=== PATIENT | female | born 1980 | race American Indian/Alaskan Native ===

== ENCOUNTER 2019-01-15 10:09 | Inpatient (IN) | payer OTHER ==
[2019-01-15] MEDS ORDERED: SODIUM CHLORIDE 0.9% 1000 ML 1,000 ML IV ONE ×2 (10:40→15:23)
[2019-01-15] MEDS ORDERED: FAMOTIDINE 20 MG/2 ML INJ IV ONE (10:40)
[2019-01-15] MEDS ORDERED: ONDANSETRON 4 MG/2 ML INJ IV ONE ×2 (10:40→15:22)
[2019-01-15] MEDS ORDERED: HYDROmorphone 1 MG/1 ML INJ IV ONE ×2 (11:31→15:15)
[2019-01-15] MEDS ORDERED: INSULIN REGULAR, HUMAN 100 UNITS/1 ML IV ONE ×2 (11:32→15:21)
[2019-01-15 11:46] LABS: Basophils % (Auto) 0.4 % (0.0-1.8); Hematocrit 31.8 % (30.3-42.9); Hemoglobin 10.1 gm/dl (10.1-14.3); Lymphocytes # (Auto) 0.7 K/mm3 (1.2-5.4); Lymphocytes % (Auto) 7.1 % (13.4-35.0); Mean Corpuscular HGB Conc 32 % (30-34); Mean Corpuscular Volume 71 fl (79-97); Monocytes # (Auto) 0.2 K/mm3 (0.0-0.8); Monocytes % (Auto) 2.6 % (0.0-7.3); Platelet Count 299 K/mm3 (140-440); Red Blood Count 4.48 M/mm3 (3.65-5.03); Red Cell Distribution Width 19.8 % (13.2-15.2)
[2019-01-15 11:52] LABS: Albumin 4.3 g/dL (3.9-5); Calcium 8.9 mg/dL (8.4-10.2)
--- NOTE | 2019-01-15 12:00 | Emergency Department Report ---
<DIEGO CARROLL III - Last Filed: 01/15/19 16:41> ED Abdominal Pain HPI - General Chief Complaint: GI Bleed Stated Complaint: HYPERGLYCEMIA/N/V Time Seen by Provider: 01/15/19 10:38 - Related Data Previous Rx's Medication Instructions Recorded Last Taken Type Acetaminophen [Tylenol] 650 mg PO Q6HR PRN #30 tablet 02/02/13 01/14/19 Rx Carvedilol [Coreg] 25 mg PO Q12HR #60 tablet 02/02/13 01/14/19 Rx Promethazine HCl [Promethazine] 25 mg PO Q6H PRN #20 tablet 02/02/13 01/14/19 Rx amLODIPine [Norvasc] 5 mg PO QDAY #30 tablet 02/02/13 01/14/19 Rx Allergies Allergy/AdvReac Type Severity Reaction Status Date / Time acetaminophen [From Percocet] Allergy Vomiting Verified 01/15/19 17:09 haloperidol [From Haldol] Allergy Nausea Verified 01/15/19 17:09 oxycodone HCl [From Percocet] Allergy Vomiting Verified 01/15/19 17:09 ED Past Medical Hx - Medications Home Medications: Home Medications Medication Instructions Recorded Confirmed Last Taken Type Acetaminophen [Tylenol] 650 mg PO Q6HR PRN #30 tablet 02/02/13 01/15/19 01/14/19 Rx Carvedilol [Coreg] 25 mg PO Q12HR #60 tablet 02/02/13 01/15/19 01/14/19 Rx Promethazine HCl [Promethazine] 25 mg PO Q6H PRN #20 tablet 02/02/13 01/15/19 01/14/19 Rx amLODIPine [Norvasc] 5 mg PO QDAY #30 tablet 02/02/13 01/15/19 01/14/19 Rx ED Course - Consultations Consultation #1: Hospitalist consultation for admission. Hospitalist to admit patient. 01/15/19 16:42 ED Medical Decision Making - Lab Data Result diagrams: 01/15/19 11:21 01/15/19 11:21 ED Disposition Clinical Impression: Nausea and vomiting Qualifiers: Vomiting type: unspecified Vomiting Intractability: intractable Qualified Code(s): R11.2 - Nausea with vomiting, unspecified UTI (urinary tract infection) Qualifiers: Encounter type: initial encounter Abdominal pain Qualifiers: Abdominal location: unspecified location Qualified Code(s): R10.9 - Unspecified abdominal pain Disposition: DC-09 OP ADMIT IP TO THIS HOSP Is pt being admited?: Yes Does the pt Need Aspirin: No Condition: Critical Time of Disposition: 16:42 <AMYANDREY Emilie - Last Filed: 01/16/19 22:59> ED Abdominal Pain HPI - General Source: EMS, old records reviewed Mode of arrival: Stretcher Limitations: No Limitations - History of Present Illness Initial Comments: 38 year old female the past medical history or insulin dependent diabetes and previous cholecystectomy presents to the hospital with complaints of abdominal pain and vomiting (coffee ground emesis) 2 days. Patient complains of mid abdominal pain that is severe in intensity and worse with palpation. She's had nausea, vomiting, and by mouth intolerance is yesterday. Patient last took her BP meds and insulin yesterday. She denies fever, diarrhea, melena, hematochezia, or dysuria. She denies a history of gastroparesis. PMD Dr. 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; cardiomyopathy and CHF) Hx Congestive Heart Failure: Yes Hx Diabetes: Yes (IDDM) Hx Liver Disease: No Hx Renal Disease: No Hx Sickle Cell Disease: No Hx Seizures: No Hx Kidney Stones: Yes Hx Asthma: Yes (as child) Hx COPD: No - Surgical History Hx Pacemaker: No Hx Internal Defibrillator: No Hx Cholecystectomy: Yes - Social History Smoking Status: Never Smoker Substance Use Type: None ED Physical Exam - General Limitations: No Limitations - Other Other exam information: Gen.: No acute distress Head: Atraumatic Eyes: Normal appearance ENT: Moist mucous membranes Neck: Normal appearance, no posterior midline tenderness, no meningismus Chest: Clear to auscultation bilaterally Cardiovascular: Tachycardic regular rhythm Abdomen: Normal appearance, soft, mid abdominal tenderness, no rebound or guarding, normal bowel sounds Back: Normal appearance, nontender Extremity: Full range of motion, normal appearance Neuro: Alert and oriented 3, clear speech, no focal motor or sensory deficit Psychiatric: Appropriate Skin: No rash ED Course Vital Signs 01/15/19 01/15/19 01/15/19 10:21 10:24 11:52 Temperature 98.1 F Pulse Rate 115 H 108 H Respiratory 18 16 Rate Blood Pressure 195/118 207/126 Blood Pressure [Left] O2 Sat by Pulse 97 100 Oximetry 01/15/19 01/15/19 01/15/19 11:57 12:02 12:11 Temperature Pulse Rate 102 H Respiratory Rate Blood Pressure Blood Pressure 207/126 178/111 157/97 [Left] O2 Sat by Pulse 98 Oximetry 01/15/19 01/15/19 01/15/19 12:30 12:47 14:15 Temperature Pulse Rate 102 H 103 H Respiratory Rate Blood Pressure Blood Pressure 163/99 157/95 180/108 [Left] O2 Sat by Pulse Oximetry 01/15/19 01/15/19 01/15/19 16:02 18:00 18:55 Temperature Pulse Rate 105 H 105 H 114 H Respiratory Rate Blood Pressure 175/111 178/111 Blood Pressure 162/91 [Left] O2 Sat by Pulse 97 Oximetry 01/15/19 19:10 Temperature 98.2 F Pulse Rate 116 H Respiratory 16 Rate Blood Pressure Blood Pressure 130/80 [Left] O2 Sat by Pulse 100 Oximetry ED Medical Decision Making - Lab Data Result diagrams: 01/16/19 04:41 01/16/19 04:41 Lab Results 01/15/19 01/15/19 01/15/19 Range/Units 10:37 11:21 11:21 WBC 9.2 (4.5-11.0) K/mm3 RBC 4.48 (3.65-5.03) M/mm3 Hgb 10.1 (10.1-14.3) gm/dl Hct 31.8 (30.3-42.9) % MCV 71 L (79-97) fl MCH 23 L (28-32) pg MCHC 32 (30-34) % RDW 19.8 H (13.2-15.2) % Plt Count 299 (140-440) K/mm3 Lymph % (Auto) 7.1 L (13.4-35.0) % Williamson % (Auto) 2.6 (0.0-7.3) % Eos % (Auto) 0.0 (0.0-4.3) % Baso % (Auto) 0.4 (0.0-1.8) % Lymph # 0.7 L (1.2-5.4) K/mm3 Williamson # 0.2 (0.0-0.8) K/mm3 Eos # 0.0 (0.0-0.4) K/mm3 Baso # 0.0 (0.0-0.1) K/mm3 Seg Neutrophils % 89.9 H (40.0-70.0) % Seg Neutrophils # 8.2 H (1.8-7.7) K/mm3 PT (12.2-14.9) Sec. INR (0.87-1.13) APTT (24.2-36.6) Sec. VBG pH (7.320-7.420) Sodium 138 (137-145) mmol/L Potassium 3.8 (3.6-5.0) mmol/L Chloride 102.2 (98-107) mmol/L Carbon Dioxide 19 L (22-30) mmol/L Anion Gap 21 mmol/L BUN 19 H (7-17) mg/dL Creatinine 1.4 H (0.7-1.2) mg/dL Estimated GFR 51 ml/min BUN/Creatinine Ratio 14 % Glucose 363 H (65-100) mg/dL POC Glucose 339 H (70-105) Calcium 8.9 (8.4-10.2) mg/dL Total Bilirubin 0.40 (0.1-1.2) mg/dL AST 17 (5-40) units/L ALT 11 (7-56) units/L Alkaline Phosphatase 87 (35-129) units/L Total Protein 9.0 H (6.3-8.2) g/dL Albumin 4.3 (3.9-5) g/dL Albumin/Globulin Ratio 0.9 % Lipase 54 (13-60) units/L HCG, Qual (Negative) Urine Color (Yellow) Urine Turbidity (Clear) Urine pH (5.0-7.0) Ur Specific Winton (1.003-1.030) Urine Protein (Negative) mg/dL Urine Glucose (UA) (Negative) mg/dL Urine Ketones (Negative) mg/dL Urine Blood (Negative) Urine Nitrite (Negative) Urine Bilirubin (Negative) Urine Urobilinogen (<2.0) mg/dL Ur Leukocyte Esterase (Negative) Urine WBC (Auto) (0.0-6.0) /HPF Urine RBC (Auto) (0.0-6.0) /HPF U Epithel Cells (Auto) (0-13.0) /HPF Urine Bacteria (Auto) (Negative) /HPF Urine Mucus /HPF Blood Type Antibody Screen 01/15/19 01/15/19 01/15/19 Range/Units 11:21 11:21 11:21 WBC (4.5-11.0) K/mm3 RBC (3.65-5.03) M/mm3 Hgb (10.1-14.3) gm/dl Hct (30.3-42.9) % MCV (79-97) fl MCH (28-32) pg MCHC (30-34) % RDW (13.2-15.2) % Plt Count (140-440) K/mm3 Lymph % (Auto) (13.4-35.0) % Williamson % (Auto) (0.0-7.3) % Eos % (Auto) (0.0-4.3) % Baso % (Auto) (0.0-1.8) % Lymph # (1.2-5.4) K/mm3 Williamson # (0.0-0.8) K/mm3 Eos # (0.0-0.4) K/mm3 Baso # (0.0-0.1) K/mm3 Seg Neutrophils % (40.0-70.0) % Seg Neutrophils # (1.8-7.7) K/mm3 PT 13.7 (12.2-14.9) Sec. INR 1.08 (0.87-1.13) APTT 20.6 L (24.2-36.6) Sec. VBG pH 7.400 (7.320-7.420) Sodium (137-145) mmol/L Potassium (3.6-5.0) mmol/L Chloride (98-107) mmol/L Carbon Dioxide (22-30) mmol/L Anion Gap mmol/L BUN (7-17) mg/dL Creatinine (0.7-1.2) mg/dL Estimated GFR ml/min BUN/Creatinine Ratio % Glucose (65-100) mg/dL POC Glucose (70-105) Calcium (8.4-10.2) mg/dL Total Bilirubin (0.1-1.2) mg/dL AST (5-40) units/L ALT (7-56) units/L Alkaline Phosphatase (35-129) units/L Total Protein (6.3-8.2) g/dL Albumin (3.9-5) g/dL Albumin/Globulin Ratio % Lipase (13-60) units/L HCG, Qual Negative (Negative) Urine Color (Yellow) Urine Turbidity (Clear) Urine pH (5.0-7.0) Ur Specific Winton (1.003-1.030) Urine Protein (Negative) mg/dL Urine Glucose (UA) (Negative) mg/dL Urine Ketones (Negative) mg/dL Urine Blood (Negative) Urine Nitrite (Negative) Urine Bilirubin (Negative) Urine Urobilinogen (<2.0) mg/dL Ur Leukocyte Esterase (Negative) Urine WBC (Auto) (0.0-6.0) /HPF Urine RBC (Auto) (0.0-6.0) /HPF U Epithel Cells (Auto) (0-13.0) /HPF Urine Bacteria (Auto) (Negative) /HPF Urine Mucus /HPF Blood Type Antibody Screen 01/15/19 01/15/19 01/15/19 Range/Units 11:21 13:06 15:27 WBC (4.5-11.0) K/mm3 RBC (3.65-5.03) M/mm3 Hgb (10.1-14.3) gm/dl Hct (30.3-42.9) % MCV (79-97) fl MCH (28-32) pg MCHC (30-34) % RDW (13.2-15.2) % Plt Count (140-440) K/mm3 Lymph % (Auto) (13.4-35.0) % Williamson % (Auto) (0.0-7.3) % Eos % (Auto) (0.0-4.3) % Baso % (Auto) (0.0-1.8) % Lymph # (1.2-5.4) K/mm3 Williamson # (0.0-0.8) K/mm3 Eos # (0.0-0.4) K/mm3 Baso # (0.0-0.1) K/mm3 Seg Neutrophils % (40.0-70.0) % Seg Neutrophils # (1.8-7.7) K/mm3 PT (12.2-14.9) Sec. INR (0.87-1.13) APTT (24.2-36.6) Sec. VBG pH (7.320-7.420) Sodium (137-145) mmol/L Potassium (3.6-5.0) mmol/L Chloride (98-107) mmol/L Carbon Dioxide (22-30) mmol/L Anion Gap mmol/L BUN (7-17) mg/dL Creatinine (0.7-1.2) mg/dL Estimated GFR ml/min BUN/Creatinine Ratio % Glucose (65-100) mg/dL POC Glucose 320 H (70-105) Calcium (8.4-10.2) mg/dL Total Bilirubin (0.1-1.2) mg/dL AST (5-40) units/L ALT (7-56) units/L Alkaline Phosphatase (35-129) units/L Total Protein (6.3-8.2) g/dL Albumin (3.9-5) g/dL Albumin/Globulin Ratio % Lipase (13-60) units/L HCG, Qual (Negative) Urine Color Yellow (Yellow) Urine Turbidity Slightly-cloudy (Clear) Urine pH 5.0 (5.0-7.0) Ur Specific Winton 1.025 (1.003-1.030) Urine Protein 30 mg/dl (Negative) mg/dL Urine Glucose (UA) >=500 (Negative) mg/dL Urine Ketones Tr (Negative) mg/dL Urine Blood Lg (Negative) Urine Nitrite Neg (Negative) Urine Bilirubin Neg (Negative) Urine Urobilinogen < 2.0 (<2.0) mg/dL Ur Leukocyte Esterase Mod (Negative) Urine WBC (Auto) 19.0 H (0.0-6.0) /HPF Urine RBC (Auto) 4.0 (0.0-6.0) /HPF U Epithel Cells (Auto) 3.0 (0-13.0) /HPF Urine Bacteria (Auto) 2+ (Negative) /HPF Urine Mucus Few /HPF Blood Type B POSITIVE Antibody Screen Negative - Radiology Data Radiology results: report reviewed CT ABDOMEN AND PELVIS WITH CONTRAST HISTORY: Abdominal pain, nausea and vomiting COMPARISON: None. TECHNIQUE: Axial CT images were obtained through the abdomen and pelvis after 100 cc of Omnipaque 300 intravenously. Sagittal and coronal reformatted images. All CT scans at this location are performed using CT dose reduction for ALARA by means of automated exposure control. FINDINGS: CT ABDOMEN: Lung Bases: Clear. Liver: No significant abnormality. Biliary: Cholecystectomy has been performed. Mild biliary prominence is likely secondary to cholecystectomy. Spleen: No significant abnormality. Unenlarged. Pancreas: No significant abnormality. Adrenals: No significant abnormality. Kidneys: No significant abnormality. Lymphatics: No lymphadenopathy. Vasculature: No significant abnormality. Bowel/Peritoneum: No significant abnormality. No free air. No free fluid. Normal appendix. CT PELVIS: : A 2 cm right ovarian cyst is identified. The uterus and left ovary are unremarkable. A tampon is identified in the vaginal canal. Osseous Structures: No significant abnormality. Additional Findings: None IMPRESSION: No acute process is identified. 2 cm right ovarian cyst. - Medical Decision Making plan to admit pt for n,v, uti and diabetes - Differential Diagnosis gastroparesis, appendicitis, diverticulitis, Critical Care Time: No Critical care attestation.: If time is entered above; I have spent that time in minutes in the direct care of this critically ill patient, excluding procedure time. ED Disposition Is pt being admited?: Yes Does the pt Need Aspirin: No
[2019-01-15 12:01] LABS: INR 1.08 (0.87-1.13)
[2019-01-15 12:02] LABS: Partial Thromboplastin Time 20.6 Sec. (24.2-36.6)
[2019-01-15 14:03] LABS: Bacteria,Urine 2+ /HPF (Negative); Bilirubin,Urine NEG (Negative); Blood,Urine LG (Negative); Color,Urine Yellow (Yellow); Mucus,Urine FEW /HPF; Urobilinogen,Urine < 2.0 mg/dL (<2.0)
[2019-01-15] MEDS ORDERED: cefTRIAXone/NS 1 GM/50 ML 1 GM/50 ML BAG IV ONE (14:21)
--- NOTE | 2019-01-15 16:14 | Cat Scan Report ---
CT ABDOMEN AND PELVIS WITH CONTRAST HISTORY: Abdominal pain, nausea and vomiting COMPARISON: None. TECHNIQUE: Axial CT images were obtained through the abdomen and pelvis after 100 cc of Omnipaque 300 intravenously. Sagittal and coronal reformatted images. All CT scans at this location are performed using CT dose reduction for ALARA by means of automated exposure control. FINDINGS: CT ABDOMEN: Lung Bases: Clear. Liver: No significant abnormality. Biliary: Cholecystectomy has been performed. Mild biliary prominence is likely secondary to cholecyst ectomy. Spleen: No significant abnormality. Unenlarged. Pancreas: No significant abnormality. Adrenals: No significant abnormality. Kidneys: No significant abnormality. Lymphatics: No lymphadenopathy. Vasculature: No significant abnormality. Bowel/Peritoneum: No significant abnormality. No free air. No free fluid. Normal appendix. CT PELVIS: : A 2 cm right ovarian cyst is identified. The uterus and left ovary are unremarkable. A tampon is identified in the vaginal canal. Osseous Structures: No significant abnormality. Additional Findings: None IMPRESSION: No acute process is identified. 2 cm right ovarian cyst. Signer Name: Adan Banks Jr, MD Signed: 01/15/2019 4:10 PM Workstation Name: [id number]
[2019-01-15] MEDS ORDERED: ACETAMINOPHEN 325 MG TAB PO PRN ×2 (16:56→16:57)
[2019-01-15] MEDS ORDERED: DEXTROSE 50% IN WATER (25GM) 50 ML SYRINGE IV PRN (16:59)
[2019-01-15] MEDS ORDERED: PROMETHAZINE 25 MG TAB PO PRN (17:15)
[2019-01-15] MEDS ORDERED: hydrALAZINE 20 MG/1 ML INJ ONE ×2 (17:46→18:49)
[2019-01-15] MEDS ORDERED: hydrALAZINE 20 MG/1 ML INJ IV SCH (18:00)
[2019-01-15] MEDS: hydrALAZINE 20 MG/1 ML INJ IV PRN ×2 (18:00→18:55)
[2019-01-15] MEDS ORDERED: INSULIN REGULAR, HUMAN 100 UNITS/1 ML ONE (20:10)
--- NOTE | 2019-01-15 20:10 | History and Physical Report ---
History of Present Illness Date of admission: 01/15/19 16:56 Chief complaint: My stomach hurts History of present illness: 38 YO Female with HTN, NE, Cardiomyopathy presents to ED for evaluation. Pt states that she has experienced abdominal pain over the past 2 days. Pt states that pain is 4-10/10, intermittent, associated with nausea, vomiting. Pt states that pain is worsened with palpation, and relieved with rest. EMS notified, and upon arrival the patient was found to be in distress and transported to [facility]. Pt seen and evaluated in ED and found to have Gastroparesis, UTI, Acute Kidney Injury and Acidosis. Pt admitted to medical floor. Pt treated with IVF resuscitation therapy without significant improvement in symptoms. Pt denies fever, chills, CP, Palpitations, Trauma, Ingestion of food/water from new or different sources. Prior admission on 01/21/13 reviewed. All listed mediation reconciled at time of admission. Past History Past Medical History: diabetes, hypertension, other (Asthma, Cardiomyopathy) Past Surgical History: cholecystectomy Social history: , lives with family. denies: smoking, alcohol abuse, prescription drug abuse Family history: diabetes, hypertension Medications and Allergies Allergies Allergy/AdvReac Type Severity Reaction Status Date / Time acetaminophen [From Percocet] Allergy Vomiting Verified 01/15/19 17:09 haloperidol [From Haldol] Allergy Nausea Verified 01/15/19 17:09 oxycodone HCl [From Percocet] Allergy Vomiting Verified 01/15/19 17:09 Home Medications Medication Instructions Recorded Confirmed Last Taken Type Acetaminophen [Tylenol] 650 mg PO Q6HR PRN #30 tablet 02/02/13 01/15/19 01/14/19 Rx Carvedilol [Coreg] 25 mg PO Q12HR #60 tablet 02/02/13 01/15/19 01/14/19 Rx Promethazine HCl [Promethazine] 25 mg PO Q6H PRN #20 tablet 02/02/13 01/15/19 01/14/19 Rx amLODIPine [Norvasc] 5 mg PO QDAY #30 tablet 02/02/13 01/15/19 01/14/19 Rx Active Meds: Active Medications Acetaminophen (Tylenol) 650 mg PO Q6HR PRN PRN Reason: PAIN Amlodipine Besylate (Norvasc) 5 mg PO QDAY ARTHUR Carvedilol (Coreg) 25 mg PO Q12HR [facility] Dextrose (D50w (25gm) Syringe) 50 ml IV PRN PRN PRN Reason: Hypoglycemia Hydralazine HCl (Apresoline) 10 mg IV Q6H PRN PRN Reason: Hypertension Last Admin: 01/15/19 18:55 Dose: 10 mg Documented by: Ceftriaxone Sodium (Rocephin/Ns 1 Gm/50 Ml) 1 gm in 50 mls @ 100 mls/hr IV Q24HR ARTHUR; Protocol Insulin Human Lispro (Humalog) 0 unit SUB-Q Q6HR [facility]; Protocol Ondansetron HCl (Zofran) 4 mg IV Q8H PRN PRN Reason: Nausea And Vomiting Promethazine HCl (Phenergan) 25 mg PO Q6H PRN PRN Reason: Nausea And Vomiting Sodium Chloride (Sodium Chloride Flush Syringe 10 Ml) 10 ml IV BID [facility] Sodium Chloride (Sodium Chloride Flush Syringe 10 Ml) 10 ml IV PRN PRN PRN Reason: LINE FLUSH Review of Systems Constitutional: no weight loss, no weight gain, no fever, no chills Ears, nose, mouth and throat: no ear pain, no ear discharge, no tinnitis, no decreased hearing, no nasal discharge Cardiovascular: no chest pain, no palpitations, no syncope Respiratory: no cough, no cough with sputum, no excessive sputum, no hemoptysis, no shortness of breath Gastrointestinal: abdominal pain, nausea, no change in bowel habits, no coffee ground emesis, no loss of appetite, no early satiety Genitourinary Female: no pelvic pain, no flank pain, no menorrhagia, no urgency Rectal: no pain, no incontinence, no bleeding Musculoskeletal: no neck stiffness, no shooting arm pain, no arm numbness/tingling, no shooting leg pain, no leg numbness/tingling Integumentary: no rash, no pruritis, no redness, no sores, no jaundice, no boils Neurological: no paralysis, no weakness, no tingling, no seizures, no syncope, no tremors Psychiatric: no anxiety, no memory loss, no change in sleep habits, no sleep disturbances, no insomnia, no change in appetite, no change in libido, no suicidal ideation Endocrine: no cold intolerance, no heat intolerance, no polydipsia, no nocturia Hematologic/Lymphatic: no easy bruising, no easy bleeding, no lymphadenopathy, no lymphedema Allergic/Immunologic: no urticaria, no allergic rhinitis, no wheezing, no persistent infections, no anaphylaxis, no angioedema Exam - Constitutional Vitals: Temp Pulse Resp BP Pulse Ox 98.2 F 116 H 16 130/80 100 01/15/19 19:10 01/15/19 19:10 01/15/19 19:10 01/15/19 19:10 01/15/19 19:10 General appearance: Present: no acute distress, well-nourished - EENT Eyes: Present: PERRL ENT: hearing intact, clear oral mucosa - Neck Neck: Present: supple, normal ROM - Respiratory Respiratory effort: normal Respiratory: bilateral: CTA - Cardiovascular Heart Sounds: Present: S1 & S2. Absent: rub, click - Extremities Extremities: pulses symmetrical, No edema Peripheral Pulses: within normal limits - Abdominal General gastrointestinal: Present: soft, non-tender, non-distended, normal bowel sounds Female genitourinary: Present: normal - Integumentary Integumentary: Present: clear, warm, dry - Musculoskeletal Musculoskeletal: gait normal, strength equal bilaterally - Psychiatric Psychiatric: appropriate mood/affect, intact judgment & insight - Neurologic Neurologic: CNII-XII intact, moves all extremities Results - Labs CBC & Chem 7: 01/15/19 11:21 01/15/19 11:21 Labs: Abnormal lab results 01/15/19 01/15/19 01/15/19 Range/Units 10:37 11:21 11:21 MCV 71 L (79-97) fl MCH 23 L (28-32) pg RDW 19.8 H (13.2-15.2) % Lymph % (Auto) 7.1 L (13.4-35.0) % Lymph # 0.7 L (1.2-5.4) K/mm3 Seg Neutrophils % 89.9 H (40.0-70.0) % Seg Neutrophils # 8.2 H (1.8-7.7) K/mm3 APTT (24.2-36.6) Sec. Carbon Dioxide 19 L (22-30) mmol/L BUN 19 H (7-17) mg/dL Creatinine 1.4 H (0.7-1.2) mg/dL Glucose 363 H (65-100) mg/dL POC Glucose 339 H (70-105) Total Protein 9.0 H (6.3-8.2) g/dL Urine WBC (Auto) (0.0-6.0) /HPF 01/15/19 01/15/19 01/15/19 Range/Units 11:21 13:06 15:27 MCV (79-97) fl MCH (28-32) pg RDW (13.2-15.2) % Lymph % (Auto) (13.4-35.0) % Lymph # (1.2-5.4) K/mm3 Seg Neutrophils % (40.0-70.0) % Seg Neutrophils # (1.8-7.7) K/mm3 APTT 20.6 L (24.2-36.6) Sec. Carbon Dioxide (22-30) mmol/L BUN (7-17) mg/dL Creatinine (0.7-1.2) mg/dL Glucose (65-100) mg/dL POC Glucose 320 H (70-105) Total Protein (6.3-8.2) g/dL Urine WBC (Auto) 19.0 H (0.0-6.0) /HPF 01/15/19 01/15/19 Range/Units 17:04 20:08 MCV (79-97) fl MCH (28-32) pg RDW (13.2-15.2) % Lymph % (Auto) (13.4-35.0) % Lymph # (1.2-5.4) K/mm3 Seg Neutrophils % (40.0-70.0) % Seg Neutrophils # (1.8-7.7) K/mm3 APTT (24.2-36.6) Sec. Carbon Dioxide (22-30) mmol/L BUN (7-17) mg/dL Creatinine (0.7-1.2) mg/dL Glucose (65-100) mg/dL POC Glucose 243 H 298 H (70-105) Total Protein (6.3-8.2) g/dL Urine WBC (Auto) (0.0-6.0) /HPF Assessment and Plan - Patient Problems (1) MATT (acute kidney injury) Current Visit: Yes Status: Acute (2) Gastroparesis Current Visit: Yes Status: Acute Plan to address problem: CT Abdomen/Pelvis, IVF resuscitation, bowel rest, 6-8 frequent small meals, antiemetic therapy. (3) UTI (urinary tract infection) Current Visit: Yes Status: Acute Qualifiers: Encounter type: initial encounter Plan to address problem: IV antibiotic therapy, IVF resuscitation therpay, CBC, CMP, urinalysis. (4) Acidosis Current Visit: Yes Status: Acute Plan to address problem: IVF resuscitation therapy, (5) DVT prophylaxis Current Visit: No Status: Acute Plan to address problem: SCD to BLE while in bed, Pt ambulatory
[2019-01-15] MEDS: INSULIN LISPRO 100 UNIT/ML SUB-Q SCH (20:19)
[2019-01-15] MEDS: carvediloL 25 MG TAB PO SCH (23:15)
[2019-01-15] MEDS: MORPHINE 2 MG/1 ML INJ IV PRN (23:59)
[2019-01-16] MEDS: INSULIN LISPRO 100 UNIT/ML SUB-Q SCH ×4 (00:21→18:22)
[2019-01-16] MEDS: MORPHINE 2 MG/1 ML INJ IV PRN ×4 (05:10→22:53)
[2019-01-16 05:21] LABS: Basophils # (Auto) 0.1 K/mm3 (0.0-0.1); Basophils % (Auto) 0.8 % (0.0-1.8); Eosinophils % (Auto) 0.2 % (0.0-4.3); Hematocrit 30.6 % (30.3-42.9); Hemoglobin 9.6 gm/dl (10.1-14.3); Lymphocytes # (Auto) 1.2 K/mm3 (1.2-5.4); Lymphocytes % (Auto) 11.1 % (13.4-35.0); Mean Corpuscular HGB Conc 31 % (30-34); Mean Corpuscular Volume 71 fl (79-97); Monocytes # (Auto) 0.8 K/mm3 (0.0-0.8); Monocytes % (Auto) 7.5 % (0.0-7.3); Platelet Count 310 K/mm3 (140-440); Red Blood Count 4.32 M/mm3 (3.65-5.03)
[2019-01-16 05:30] LABS: Red Cell Distribution Width 20.5 % (13.2-15.2)
[2019-01-16 05:40] LABS: Albumin 4.2 g/dL (3.9-5); Calcium 8.6 mg/dL (8.4-10.2)
--- NOTE | 2019-01-16 07:50 | Progress Note ---
Assessment and Plan Assessment and plan: 38-year-old woman who presented to the hospital with abdominal pain nausea and coffee-ground emesis. Past medical history, insulin-dependent diabetes, history of previous cholecystectomy Labs, CBC shows mild anemia, hemoglobin 9.6, creatinine 1.4, UA shows [address] abdomen and pelvis, no acute process, 2 cm right ovarian cyst Diagnosis Intractable nausea vomiting and abdominal pain due to gastroenteritis Insulin-dependent diabetes with persistent hyperglycemia UTI Acute kidney injury due to vasomotor nephropathy Plan Symptoms are likely due to gastroenteritis, supportive care with IV fluids antiemetics and pain medications hg stable, not cw GI bleed, if patient does not improve with consider NM gastric emptying study Optimize insulins, check A1c Antibiotics, follow-up urine cultures IV fluids, no hydronephrosis seen on CT scan DVT prophylaxis with Lovenox History Interval history: Review of systems Constitutional: No fevers, no malaise, no joint pains CVS: No chest pain, no orthopnea, no pedal edema GI: Abdominal pain is improved, still having some nausea, no further episodes of vomiting Respiratory: No shortness of breath, no wheezing, no coughing Hospitalist Physical - Physical exam Narrative exam: General.: Appears well, no distress, nontoxic HEENT: Moist mucous membranes, extraocular muscles intact, no lymphadenopathy Neck: supple Cardiac: S1-S2 heard Lungs: clear to auscultation bilaterally Abdomen: soft , nontender, nondistended, bowel sounds positive Extremities: no edema clubbing or cyanosis Skin: no rash or lesions Neurologic: no gross focal deficits Psych: calm, and cooperative - Constitutional Vitals: Temp Pulse Resp BP Pulse Ox 98.9 F 122 H 16 185/117 100 01/16/19 04:57 01/15/19 23:15 01/16/19 05:40 01/16/19 04:57 01/15/19 20:39 General appearance: Present: no acute distress, well-nourished Results - Labs CBC & Chem 7: 01/16/19 04:41 01/16/19 04:41 Labs: Laboratory Last Values WBC 10.8 K/mm3 (4.5-11.0) 01/16/19 04:41 RBC 4.32 M/mm3 (3.65-5.03) 01/16/19 04:41 Hgb 9.6 gm/dl (10.1-14.3) L 01/16/19 04:41 Hct 30.6 % (30.3-42.9) 01/16/19 04:41 MCV 71 fl (79-97) L 01/16/19 04:41 MCH 22 pg (28-32) L 01/16/19 04:41 MCHC 31 % (30-34) 01/16/19 04:41 RDW 20.5 % (13.2-15.2) H 01/16/19 04:41 Plt Count 310 K/mm3 (140-440) 01/16/19 04:41 Lymph % (Auto) 11.1 % (13.4-35.0) L 01/16/19 04:41 [place] % (Auto) 7.5 % (0.0-7.3) H 01/16/19 04:41 Eos % (Auto) 0.2 % (0.0-4.3) 01/16/19 04:41 Baso % (Auto) 0.8 % (0.0-1.8) 01/16/19 04:41 Lymph # 1.2 K/mm3 (1.2-5.4) 01/16/19 04:41 [place] # 0.8 K/mm3 (0.0-0.8) 01/16/19 04:41 Eos # 0.0 K/mm3 (0.0-0.4) 01/16/19 04:41 Baso # 0.1 K/mm3 (0.0-0.1) 01/16/19 04:41 Seg Neutrophils % 80.4 % (40.0-70.0) H 01/16/19 04:41 Seg Neutrophils # 8.7 K/mm3 (1.8-7.7) H 01/16/19 04:41 PT 13.7 Sec. (12.2-14.9) 01/15/19 11:21 INR 1.08 (0.87-1.13) 01/15/19 11:21 APTT 20.6 Sec. (24.2-36.6) L 01/15/19 11:21 VBG pH 7.400 (7.320-7.420) 01/15/19 11:21 Sodium 142 mmol/L (137-145) 01/16/19 04:41 Potassium 3.6 mmol/L (3.6-5.0) 01/16/19 04:41 Chloride 104.6 mmol/L (98-107) 01/16/19 04:41 Carbon Dioxide 21 mmol/L (22-30) L 01/16/19 04:41 Anion Gap 20 mmol/L 01/16/19 04:41 BUN 19 mg/dL (7-17) H 01/16/19 04:41 Creatinine 1.4 mg/dL (0.7-1.2) H 01/16/19 04:41 Estimated GFR 51 ml/min 01/16/19 04:41 BUN/Creatinine Ratio 14 % 01/16/19 04:41 Glucose 200 mg/dL (65-100) H 01/16/19 04:41 POC Glucose 206 (70-105) H 01/16/19 05:47 Calcium 8.6 mg/dL (8.4-10.2) 01/16/19 04:41 Total Bilirubin 0.40 mg/dL (0.1-1.2) 01/16/19 04:41 AST 15 units/L (5-40) 01/16/19 04:41 ALT 10 units/L (7-56) 01/16/19 04:41 Alkaline Phosphatase 78 units/L (35-129) 01/16/19 04:41 Total Protein 8.3 g/dL (6.3-8.2) H 01/16/19 04:41 Albumin 4.2 g/dL (3.9-5) 01/16/19 04:41 Albumin/Globulin Ratio 1.0 % 01/16/19 04:41 Lipase 54 units/L (13-60) 01/15/19 11:21 HCG, Qual Negative (Negative) 01/15/19 11:21 Urine Color Yellow (Yellow) 01/15/19 13:06 Urine Turbidity Slightly-cloudy (Clear) 01/15/19 13:06 Urine pH 5.0 (5.0-7.0) 01/15/19 13:06 Ur Specific [place] 1.025 (1.003-1.030) 01/15/19 13:06 Urine Protein 30 mg/dl mg/dL (Negative) 01/15/19 13:06 Urine Glucose (UA) >=500 mg/dL (Negative) 01/15/19 13:06 Urine Ketones Tr mg/dL (Negative) 01/15/19 13:06 Urine Blood Lg (Negative) 01/15/19 13:06 Urine Nitrite Neg (Negative) 01/15/19 13:06 Urine Bilirubin Neg (Negative) 01/15/19 13:06 Urine Urobilinogen < 2.0 mg/dL (<2.0) 01/15/19 13:06 Ur Leukocyte Esterase Mod (Negative) 01/15/19 13:06 Urine WBC (Auto) 19.0 /HPF (0.0-6.0) H 01/15/19 13:06 Urine RBC (Auto) 4.0 /HPF (0.0-6.0) 01/15/19 13:06 U Epithel Cells (Auto) 3.0 /HPF (0-13.0) 01/15/19 13:06 Urine Bacteria (Auto) 2+ /HPF (Negative) 01/15/19 13:06 Urine Mucus Few /HPF 01/15/19 13:06 Blood Type B POSITIVE 01/15/19 11:21 Antibody Screen Negative 01/15/19 11:21 Active Medications - Current Medications Current Medications: Generic Name Dose Route Start Last Admin Trade Name Freq PRN Reason Stop Dose Admin Acetaminophen 650 mg 01/15/19 16:57 Tylenol PO Q6HR PRN PAIN Amlodipine Besylate 5 mg 01/16/19 10:00 Norvasc PO QDAY ARTHUR Carvedilol 25 mg 01/15/19 22:00 01/15/19 23:15 Coreg PO 25 mg Q12HR ARTHUR Administration Dextrose 50 ml 01/15/19 16:59 D50w (25gm) Syringe IV PRN PRN Hypoglycemia Enoxaparin Sodium 40 mg 01/16/19 22:00 Lovenox SUB-Q QDAY@2200 ARTHUR Hydralazine HCl 10 mg 01/15/19 18:39 01/15/19 18:55 Apresoline IV 10 mg Q6H PRN Administration Hypertension Ceftriaxone Sodium 1 gm in 50 mls @ 100 mls/hr 01/16/19 10:00 Rocephin/Ns 1 Gm/50 Ml IV Q24HR ARTHUR Protocol Sodium Chloride 1,000 mls @ 125 mls/hr 01/16/19 07:48 Nacl 0.9% 1000 Ml IV 01/16/19 15:47 ONCE ONE Insulin Human Lispro 0 unit 01/15/19 18:00 01/16/19 06:27 Humalog SUB-Q 3 unit Q6HR ARTHUR Administration Protocol Morphine Sulfate 2 mg 01/15/19 22:57 01/16/19 05:10 Morphine IV 2 mg Q4H PRN Administration Pain, Moderate (4-6) Ondansetron HCl 4 mg 01/15/19 16:56 01/16/19 00:00 Zofran IV 4 mg Q8H PRN Administration Nausea And Vomiting Promethazine HCl 25 mg 01/15/19 17:15 Phenergan PO Q6H PRN Nausea And Vomiting Sodium Chloride 10 ml 01/15/19 22:00 01/15/19 23:15 Sodium Chloride Flush Syringe 10 Ml IV 10 ml BID ARTHUR Administration Sodium Chloride 10 ml 01/15/19 16:56 Sodium Chloride Flush Syringe 10 Ml IV PRN PRN LINE FLUSH
[2019-01-16] MEDS: ONDANSETRON 4 MG/2 ML INJ IV PRN ×3 (08:30→23:03)
[2019-01-16] MEDS ORDERED: SODIUM CHLORIDE 0.9% 1000 ML 1,000 ML IV ONE (08:30)
[2019-01-16] MEDS: hydrALAZINE 20 MG/1 ML INJ IV PRN (08:31)
[2019-01-16] MEDS: cefTRIAXone/NS 1 GM/50 ML 1 GM/50 ML BAG IV SCH (10:31)
[2019-01-16] MEDS: amLODIPine 5 MG TAB PO SCH (10:37)
[2019-01-16] MEDS: carvediloL 25 MG TAB PO SCH ×2 (10:38→23:09)
[2019-01-16] MEDS: ENOXAPARIN 40 MG/0.4 ML INJ SUB-Q SCH (23:08)
[2019-01-17] MEDS: INSULIN LISPRO 100 UNIT/ML SUB-Q SCH ×4 (00:40→17:30)
[2019-01-17] MEDS: hydrALAZINE 20 MG/1 ML INJ IV PRN (01:36)
[2019-01-17] MEDS: MORPHINE 2 MG/1 ML INJ IV PRN ×5 (02:35→22:38)
[2019-01-17] MEDS: cefTRIAXone/NS 1 GM/50 ML 1 GM/50 ML BAG IV SCH (14:05)
[2019-01-17] MEDS: amLODIPine 5 MG TAB PO SCH (14:06)
[2019-01-17] MEDS: carvediloL 25 MG TAB PO SCH ×2 (14:06→22:56)
--- NOTE | 2019-01-17 16:01 | Nuclear Medicine Report ---
NUCLEAR MEDICINE GASTRIC EMPTYING SCAN HISTORY: Abdominal pain, nausea and vomiting TECHNIQUE: 1 millicurie of technetium 99m sulfur colloid in oatmeal was ingested. Anterior abdominal imaging was performed for 90 minutes. FINDINGS: Half-life for gastric emptying measures 95 minutes. No evidence for reflux disease. IMPRESSION: Normal gastric emptying. Signer Name: Adan Banks Jr, MD Signed: 01/17/2019 3:57 PM Workstation Name: [id number]
[2019-01-17] MEDS: ONDANSETRON 4 MG/2 ML INJ IV PRN (18:44)
--- NOTE | 2019-01-17 19:58 | Progress Note ---
Assessment and Plan Assessment and plan: 38-year-old woman who presented to the hospital with abdominal pain nausea and coffee-ground emesis. Past medical history, insulin-dependent diabetes, history of previous cholecystectomy Labs, CBC shows mild anemia, hemoglobin 9.6, creatinine 1.4, UA shows [address] abdomen and pelvis, no acute process, 2 cm right ovarian cyst Diagnosis Intractable nausea vomiting and abdominal pain due to gastroenteritis Insulin-dependent diabetes with persistent hyperglycemia UTI Acute kidney injury due to vasomotor nephropathy Plan Symptoms are likely due to gastroenteritis, supportive care with IV fluids antiemetics and pain medications hg stable, not cw GI bleed, NM gastric emptying study neg Optimize insulins, A1c 8.6 Antibiotics, follow-up urine cultures IV fluids, no hydronephrosis seen on CT scan DVT prophylaxis with Lovenox History Interval history: Review of systems Constitutional: No fevers, no malaise, no joint pains CVS: No chest pain, no orthopnea, no pedal edema GI: Abdominal pain is improved, still having some nausea, no further episodes of vomiting Respiratory: No shortness of breath, no wheezing, no coughing Hospitalist Physical - Physical exam Narrative exam: General.: Appears well, no distress, nontoxic HEENT: Moist mucous membranes, extraocular muscles intact, no lymphadenopathy Neck: supple Cardiac: S1-S2 heard Lungs: clear to auscultation bilaterally Abdomen: soft , nontender, nondistended, bowel sounds positive Extremities: no edema clubbing or cyanosis Skin: no rash or lesions Neurologic: no gross focal deficits Psych: calm, and cooperative - Constitutional Vitals: Temp Pulse Resp BP Pulse Ox 98.9 F 91 H 18 132/71 99 01/17/19 17:36 01/17/19 17:36 01/17/19 17:36 01/17/19 17:36 01/17/19 17:36 General appearance: Present: no acute distress, well-nourished Results - Labs CBC & Chem 7: 01/16/19 04:41 01/18/19 10:44 Labs: Laboratory Last Values WBC 10.8 K/mm3 (4.5-11.0) 01/16/19 04:41 RBC 4.32 M/mm3 (3.65-5.03) 01/16/19 04:41 Hgb 9.6 gm/dl (10.1-14.3) L 01/16/19 04:41 Hct 30.6 % (30.3-42.9) 01/16/19 04:41 MCV 71 fl (79-97) L 01/16/19 04:41 MCH 22 pg (28-32) L 01/16/19 04:41 MCHC 31 % (30-34) 01/16/19 04:41 RDW 20.5 % (13.2-15.2) H 01/16/19 04:41 Plt Count 310 K/mm3 (140-440) 01/16/19 04:41 Lymph % (Auto) 11.1 % (13.4-35.0) L 01/16/19 04:41 [place] % (Auto) 7.5 % (0.0-7.3) H 01/16/19 04:41 Eos % (Auto) 0.2 % (0.0-4.3) 01/16/19 04:41 Baso % (Auto) 0.8 % (0.0-1.8) 01/16/19 04:41 Lymph # 1.2 K/mm3 (1.2-5.4) 01/16/19 04:41 [place] # 0.8 K/mm3 (0.0-0.8) 01/16/19 04:41 Eos # 0.0 K/mm3 (0.0-0.4) 01/16/19 04:41 Baso # 0.1 K/mm3 (0.0-0.1) 01/16/19 04:41 Seg Neutrophils % 80.4 % (40.0-70.0) H 01/16/19 04:41 Seg Neutrophils # 8.7 K/mm3 (1.8-7.7) H 01/16/19 04:41 PT 13.7 Sec. (12.2-14.9) 01/15/19 11:21 INR 1.08 (0.87-1.13) 01/15/19 11:21 APTT 20.6 Sec. (24.2-36.6) L 01/15/19 11:21 VBG pH 7.400 (7.320-7.420) 01/15/19 11:21 Sodium 142 mmol/L (137-145) 01/16/19 04:41 Potassium 3.6 mmol/L (3.6-5.0) 01/16/19 04:41 Chloride 104.6 mmol/L (98-107) 01/16/19 04:41 Carbon Dioxide 21 mmol/L (22-30) L 01/16/19 04:41 Anion Gap 20 mmol/L 01/16/19 04:41 BUN 19 mg/dL (7-17) H 01/16/19 04:41 Creatinine 1.4 mg/dL (0.7-1.2) H 01/16/19 04:41 Estimated GFR 51 ml/min 01/16/19 04:41 BUN/Creatinine Ratio 14 % 01/16/19 04:41 Glucose 200 mg/dL (65-100) H 01/16/19 04:41 POC Glucose 363 (70-105) H 01/17/19 16:41 Hemoglobin A1c 8.6 % (4-6) H 01/16/19 08:32 Calcium 8.6 mg/dL (8.4-10.2) 01/16/19 04:41 Total Bilirubin 0.40 mg/dL (0.1-1.2) 01/16/19 04:41 AST 15 units/L (5-40) 01/16/19 04:41 ALT 10 units/L (7-56) 01/16/19 04:41 Alkaline Phosphatase 78 units/L (35-129) 01/16/19 04:41 Total Protein 8.3 g/dL (6.3-8.2) H 01/16/19 04:41 Albumin 4.2 g/dL (3.9-5) 01/16/19 04:41 Albumin/Globulin Ratio 1.0 % 01/16/19 04:41 Lipase 54 units/L (13-60) 01/15/19 11:21 HCG, Qual Negative (Negative) 01/15/19 11:21 Urine Color Yellow (Yellow) 01/15/19 13:06 Urine Turbidity Slightly-cloudy (Clear) 01/15/19 13:06 Urine pH 5.0 (5.0-7.0) 01/15/19 13:06 Ur Specific [place] 1.025 (1.003-1.030) 01/15/19 13:06 Urine Protein 30 mg/dl mg/dL (Negative) 01/15/19 13:06 Urine Glucose (UA) >=500 mg/dL (Negative) 01/15/19 13:06 Urine Ketones Tr mg/dL (Negative) 01/15/19 13:06 Urine Blood Lg (Negative) 01/15/19 13:06 Urine Nitrite Neg (Negative) 01/15/19 13:06 Urine Bilirubin Neg (Negative) 01/15/19 13:06 Urine Urobilinogen < 2.0 mg/dL (<2.0) 01/15/19 13:06 Ur Leukocyte Esterase Mod (Negative) 01/15/19 13:06 Urine WBC (Auto) 19.0 /HPF (0.0-6.0) H 01/15/19 13:06 Urine RBC (Auto) 4.0 /HPF (0.0-6.0) 01/15/19 13:06 U Epithel Cells (Auto) 3.0 /HPF (0-13.0) 01/15/19 13:06 Urine Bacteria (Auto) 2+ /HPF (Negative) 01/15/19 13:06 Urine Mucus Few /HPF 01/15/19 13:06 Blood Type B POSITIVE 01/15/19 11:21 Antibody Screen Negative 01/15/19 11:21 Active Medications - Current Medications Current Medications: Generic Name Dose Route Start Last Admin Trade Name Freq PRN Reason Stop Dose Admin Acetaminophen 650 mg 01/15/19 16:57 Tylenol PO Q6HR PRN PAIN Amlodipine Besylate 5 mg 01/16/19 10:00 01/17/19 14:06 Norvasc PO 5 mg QDAY ARTHUR Administration Carvedilol 25 mg 01/15/19 22:00 01/17/19 14:06 Coreg PO 25 mg Q12HR ARTHUR Administration Dextrose 50 ml 01/15/19 16:59 D50w (25gm) Syringe IV PRN PRN Hypoglycemia Enoxaparin Sodium 40 mg 01/16/19 22:00 01/16/19 23:08 Lovenox SUB-Q 40 mg QDAY@2200 ARTHUR Administration Hydralazine HCl 10 mg 01/15/19 18:39 01/17/19 01:36 Apresoline IV 10 mg Q6H PRN Administration Hypertension Ceftriaxone Sodium 1 gm in 50 mls @ 100 mls/hr 01/16/19 10:00 01/17/19 14:05 Rocephin/Ns 1 Gm/50 Ml IV 100 mls/hr Q24HR ARTHUR Administration Protocol Insulin Glargine 15 units 01/17/19 22:00 Lantus SUB-Q QHS ARTHUR Insulin Human Lispro 0 unit 01/15/19 18:00 01/17/19 17:30 Humalog SUB-Q 8 unit Q6HR ARTHUR Administration Protocol Morphine Sulfate 2 mg 01/15/19 22:57 01/17/19 18:38 Morphine IV 2 mg Q4H PRN Administration Pain, Moderate (4-6) Ondansetron HCl 4 mg 01/15/19 16:56 01/17/19 18:44 Zofran IV 4 mg Q8H PRN Administration Nausea And Vomiting Promethazine HCl 25 mg 01/15/19 17:15 Phenergan PO Q6H PRN Nausea And Vomiting Sodium Chloride 10 ml 01/15/19 22:00 01/17/19 14:07 Sodium Chloride Flush Syringe 10 Ml IV 10 ml BID ARTHUR Administration Sodium Chloride 10 ml 01/15/19 16:56 Sodium Chloride Flush Syringe 10 Ml IV PRN PRN LINE FLUSH
[2019-01-17] MEDS ORDERED: INSULIN GLARGINE 100 UNITS/ML SUB-Q SCH (22:00)
[2019-01-17] MEDS: ENOXAPARIN 40 MG/0.4 ML INJ SUB-Q SCH (22:37)
[2019-01-18] MEDS: INSULIN LISPRO 100 UNIT/ML SUB-Q SCH ×3 (02:03→12:27)
[2019-01-18] MEDS: MORPHINE 2 MG/1 ML INJ IV PRN ×3 (02:57→11:48)
--- NOTE | 2019-01-18 10:28 | Discharge Summary ---
Providers - Providers Date of Admission: 01/15/19 16:56 Attending physician: PADMINI DE LA O MD Primary care physician: ENA CABELLO Hospitalization Condition: Critical Hospital course: 38-year-old woman who presented to the hospital with abdominal pain nausea and coffee-ground emesis. Past medical history, insulin-dependent diabetes, history of previous cholecystectomy Labs, CBC shows mild anemia, hemoglobin 9.6, creatinine 1.4, UA shows [address] abdomen and pelvis, no acute process, 2 cm right ovarian cyst Diagnosis Intractable nausea vomiting and abdominal pain due to gastroenteritis Insulin-dependent diabetes with persistent hyperglycemia UTI Acute kidney injury due to vasomotor nephropathy hypokalemia Plan Symptoms are likely due to gastroenteritis, she received supportive care with IV fluids antiemetics and pain medications hg stable, not cw GI bleed, NM gastric emptying study was neg, therefore not consistent with gastroparesis Optimized insulins, A1c 8.6 Received antibiotics for UTI, urine cultures grew multiple organisms therefore she was treated empirically IV fluids, no hydronephrosis seen on CT scan, kidney function improved she was advise to eat K rich foods such as bananas DVT prophylaxis with Lovenox Disposition: DC-01 TO HOME OR SELFCARE Time spent for discharge: 33 mins Core Measure Documentation - Palliative Care Palliative Care/ Comfort Measures: Not Applicable - Core Measures Any of the following diagnoses?: none Exam - Constitutional Vitals: Temp Pulse Resp BP Pulse Ox 98.7 F 86 18 143/93 100 01/18/19 05:10 01/18/19 05:10 01/18/19 05:10 01/18/19 05:10 01/18/19 05:10 General appearance: Present: no acute distress, well-nourished - EENT Eyes: Present: PERRL ENT: hearing intact, clear oral mucosa - Neck Neck: Present: supple, normal ROM - Respiratory Respiratory effort: normal Respiratory: bilateral: CTA - Cardiovascular Heart Sounds: Present: S1 & S2. Absent: rub, click - Extremities Extremities: pulses symmetrical, No edema Peripheral Pulses: within normal limits - Abdominal General gastrointestinal: Present: soft, non-tender, non-distended, normal bowel sounds Female genitourinary: Present: normal - Integumentary Integumentary: Present: clear, warm, dry - Musculoskeletal Musculoskeletal: gait normal, strength equal bilaterally - Psychiatric Psychiatric: appropriate mood/affect, intact judgment & insight - Neurologic Neurologic: CNII-XII intact, moves all extremities Plan Follow up with: ENA CABELLO MD [Primary Care Provider] - 7 Days Forms: Accompanied Note Prescriptions: Insulin Glargine [Lantus VIAL] 15 units SUB-Q QHS #1 vial Dicyclomine [Bentyl] 10 mg PO QID PRN #30 capsule PRN Reason: abdominal pain Ondansetron [Zofran Odt] 4 mg PO Q8HR PRN #30 tab.rapdis PRN Reason: Nausea
[2019-01-18 11:22] LABS: BUN/Creatinine Ratio 9; Blood Urea Nitrogen 11 mg/dL (7-17); Calcium 8.3 mg/dL (8.4-10.2); Hemolysis Index 1
[2019-01-18] MEDS: carvediloL 25 MG TAB PO SCH (11:41)
[2019-01-18] MEDS: amLODIPine 5 MG TAB PO SCH (11:41)
[2019-01-18] MEDS: cefTRIAXone/NS 1 GM/50 ML 1 GM/50 ML BAG IV SCH (11:42)
[2019-01-18 11:43] VITALS: BP 166/97
== END 2019-01-18 15:00 | disposition home or self-care (01) | DRG 391 ==
LOC: ED 10:09 → 3A 16:56
PROVIDERS: ADMIT Internal Medicine; ATTEND Internal Medicine
DX: A08.4 Viral intestinal infection, unspecified (principal); N17.0 Acute kidney failure with tubular necrosis; N39.0 Urinary tract infection, site not specified; E87.2 Acidosis; I42.9 Cardiomyopathy, unspecified; D64.9 Anemia, unspecified; N83.201 Unspecified ovarian cyst, right side; E11.65 Type 2 diabetes mellitus with hyperglycemia; E87.6 Hypokalemia; I10 Essential (primary) hypertension; J45.909 Unspecified asthma, uncomplicated; I11.0 Hypertensive heart disease with heart failure; I50.9 Heart failure, unspecified; Z83.3 Family history of diabetes mellitus; Z79.4 Long term (current) use of insulin; Z90.49 Acquired absence of other specified parts of digestive tract; I25.2 Old myocardial infarction; Z82.49 Family history of ischemic heart disease and other diseases of the circulatory system; Z88.5 Allergy status to narcotic agent; Z88.1 Allergy status to other antibiotic agents; Z79.899 Other long term (current) drug therapy; Z87.442 Personal history of urinary calculi
CPT/HCPCS: 36415; 74177; 78264; 80048; 80053; 81001; 82805; 82962; 83036; 83690; 84703; 85025; 85610; 85730; 86850; 86900; 86901; 87086; 93005; 93010; G0378; A9541; J0360; J0696; J1170; J1650; J1815; J2270; J2405; J7030; Q0169; Q9967

== ENCOUNTER 2019-04-03 17:53 | Inpatient (IN) | payer OTHER ==
[2019-04-03] MEDS ORDERED: ONDANSETRON 4 MG/2 ML INJ IV ONE (19:14)
[2019-04-03] MEDS ORDERED: SODIUM CHLORIDE 0.9% 1000 ML 1,000 ML IV ONE ×3 (19:14→22:40)
[2019-04-03] MEDS ORDERED: INSULIN REGULAR, HUMAN 100 UNITS/1 ML IV ONE (19:14)
[2019-04-03] MEDS ORDERED: HYDROmorphone 1 MG/1 ML INJ IV ONE ×2 (19:15→21:02)
[2019-04-03] MEDS ORDERED: FAMOTIDINE 20 MG/2 ML INJ IV ONE (19:15)
[2019-04-03 19:30] LABS: Basophils % (Auto) 0.1 % (0.0-1.8); Eosinophils % (Auto) 0.1 % (0.0-4.3); Hematocrit 33.2 % (30.3-42.9); Hemoglobin 10.1 gm/dl (10.1-14.3); Lymphocytes # (Auto) 0.9 K/mm3 (1.2-5.4); Lymphocytes % (Auto) 8.3 % (13.4-35.0); Mean Corpuscular HGB Conc 30 % (30-34); Mean Corpuscular Volume 71 fl (79-97); Monocytes # (Auto) 0.5 K/mm3 (0.0-0.8); Monocytes % (Auto) 4.8 % (0.0-7.3); Platelet Count 281 K/mm3 (140-440); Red Blood Count 4.68 M/mm3 (3.65-5.03); Red Cell Distribution Width 19.4 % (13.2-15.2)
[2019-04-03 19:35] LABS: Albumin 4.1 g/dL (3.9-5); Calcium 8.5 mg/dL (8.4-10.2)
--- NOTE | 2019-04-03 20:10 | Emergency Department Report ---
ED Abdominal Pain HPI - General Chief Complaint: Hyperglycemia Stated Complaint: HBS Time Seen by Provider: 04/03/19 18:44 Source: patient Mode of arrival: Stretcher Limitations: No Limitations - History of Present Illness Initial Comments: 38-year-old female the past medical history insulin-dependent diabetes, hypertension, previous cholecystectomy and presents to the hospital complaining of abdominal pain, nausea, vomiting with by mouth intolerance since yesterday. Patient has not had her insulin in 2 days because she was feeling bad. She also has not been able to tolerate her blood pressure medications. She complains of constant mid and upper abdominal pain that is sharp and worse with palpation. Patient complains of coffee-ground emesis without shannon hematemesis. She denies fever, dysuria, diarrhea, melena, or hematochezia. Severity scale (0 -10): 8 - Related Data Previous Rx's Medication Instructions Recorded Last Taken Type Acetaminophen [Acetaminophen TAB] 650 mg PO Q6HR PRN #30 tablet 02/02/13 01/14/19 Rx Promethazine HCl [Promethazine TAB] 25 mg PO Q6H PRN #20 tablet 02/02/13 01/14/19 Rx amLODIPine 5 mg PO QDAY #30 tablet 02/02/13 01/14/19 Rx carvediloL [Coreg] 25 mg PO Q12HR #60 tablet 02/02/13 01/14/19 Rx Dicyclomine [Bentyl] 10 mg PO QID PRN #30 capsule 01/18/19 Unknown Rx Insulin Glargine [Lantus VIAL] 15 units SUB-Q QHS #1 vial 01/18/19 Unknown Rx Ondansetron [Zofran Odt] 4 mg PO Q8HR PRN #30 tab.rapdis 01/18/19 Unknown Rx Allergies Allergy/AdvReac Type Severity Reaction Status Date / Time acetaminophen [From Percocet] Allergy Vomiting Verified 01/15/19 17:09 haloperidol [From Haldol] Allergy Nausea Verified 01/15/19 17:09 oxycodone HCl [From Percocet] Allergy Vomiting Verified 01/15/19 17:09 ED Review of Systems ROS: Stated complaint: HBS Other details as noted in HPI Comment: All other systems reviewed and negative ED Past Medical Hx - Past Medical History Previous Medical History?: Yes Hx Hypertension: Yes 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; cardiomyopathy and CHF) Hx Congestive Heart Failure: Yes Hx Diabetes: Yes (IDDM) Hx Pulmonary Embolism: No Hx Liver Disease: No Hx Renal Disease: No Hx Sickle Cell Disease: No Hx Seizures: No Hx Kidney Stones: Yes Hx Asthma: Yes (as child) Hx COPD: No Hx Tuberculosis: No Hx HIV: No - Surgical History Past Surgical History?: Yes Hx Pacemaker: No Hx Internal Defibrillator: No Hx Cholecystectomy: Yes Additional Surgical History: - Social History Smoking Status: Never Smoker Substance Use Type: None - Medications Home Medications: Home Medications Medication Instructions Recorded Confirmed Last Taken Type Acetaminophen [Acetaminophen TAB] 650 mg PO Q6HR PRN #30 tablet 02/02/13 01/15/19 01/14/19 Rx Promethazine HCl [Promethazine TAB] 25 mg PO Q6H PRN #20 tablet 02/02/13 01/15/19 01/14/19 Rx amLODIPine 5 mg PO QDAY #30 tablet 02/02/13 01/15/19 01/14/19 Rx carvediloL [Coreg] 25 mg PO Q12HR #60 tablet 02/02/13 01/15/19 01/14/19 Rx Dicyclomine [Bentyl] 10 mg PO QID PRN #30 capsule 01/18/19 Unknown Rx Insulin Glargine [Lantus VIAL] 15 units SUB-Q QHS #1 vial 01/18/19 Unknown Rx Ondansetron [Zofran Odt] 4 mg PO Q8HR PRN #30 tab.rapdis 01/18/19 Unknown Rx ED Physical Exam - General Limitations: No Limitations - Other Other exam information: General: No acute distress Head: Atraumatic Eyes: normal appearance ENT: dry mucous membranes Neck: Normal appearance, no midline tenderness Chest: Clear to auscultation bilaterally CV: Tachycardic regular rhythm Abdomen: Soft, normal bowel sounds, upper and mid abd tenderness to palpation, nondistended, no rebound or guarding Back: Normal inspection Extremity: Normal inspection infection, full range of motion Neuro: Alert O x 3, no facial asymmetry, speech clear, no gross motor sensory deficit Psych: Appropriate behavior Skin: No rash ED Course Vital Signs 04/03/19 04/03/19 04/03/19 18:44 18:45 19:00 Temperature 98.4 F Pulse Rate 115 H 111 H Respiratory 16 15 Rate Blood Pressure 205/125 Blood Pressure 207/133 [Left] O2 Sat by Pulse 100 100 100 Oximetry 04/03/19 04/03/19 04/03/19 19:15 19:30 19:32 Temperature Pulse Rate 115 H 107 H 113 H Respiratory 15 14 Rate Blood Pressure 205/125 156/105 205/125 Blood Pressure [Left] O2 Sat by Pulse 100 100 Oximetry 04/03/19 04/03/19 04/03/19 19:37 19:45 20:00 Temperature 98.4 F Pulse Rate 101 H 102 H Respiratory 12 18 Rate Blood Pressure 156/105 144/81 Blood Pressure [Left] O2 Sat by Pulse 98 99 Oximetry 04/03/19 04/03/19 04/03/19 20:15 20:30 20:45 Temperature Pulse Rate 106 H 111 H 103 H Respiratory 10 L 13 17 Rate Blood Pressure 144/81 175/126 144/81 Blood Pressure [Left] O2 Sat by Pulse 100 100 100 Oximetry 04/03/19 21:00 Temperature Pulse Rate 102 H Respiratory 19 Rate Blood Pressure 164/97 Blood Pressure [Left] O2 Sat by Pulse 100 Oximetry ED Medical Decision Making - Lab Data Result diagrams: 04/03/19 18:55 04/03/19 18:55 Lab Results 04/03/19 04/03/19 04/03/19 Range/Units 18:42 18:54 18:55 WBC 11.0 (4.5-11.0) K/mm3 RBC 4.68 (3.65-5.03) M/mm3 Hgb 10.1 (10.1-14.3) gm/dl Hct 33.2 (30.3-42.9) % MCV 71 L (79-97) fl MCH 22 L (28-32) pg MCHC 30 (30-34) % RDW 19.4 H (13.2-15.2) % Plt Count 281 (140-440) K/mm3 Lymph % (Auto) 8.3 L (13.4-35.0) % [place] % (Auto) 4.8 (0.0-7.3) % Eos % (Auto) 0.1 (0.0-4.3) % Baso % (Auto) 0.1 (0.0-1.8) % Lymph # 0.9 L (1.2-5.4) K/mm3 [place] # 0.5 (0.0-0.8) K/mm3 Eos # 0.0 (0.0-0.4) K/mm3 Baso # 0.0 (0.0-0.1) K/mm3 Seg Neutrophils % 86.7 H (40.0-70.0) % Seg Neutrophils # 9.5 H (1.8-7.7) K/mm3 VBG pH 7.288 L (7.320-7.420) Sodium (137-145) mmol/L Potassium (3.6-5.0) mmol/L Chloride (98-107) mmol/L Carbon Dioxide (22-30) mmol/L Anion Gap mmol/L BUN (7-17) mg/dL Creatinine (0.7-1.2) mg/dL Estimated GFR ml/min BUN/Creatinine Ratio % Glucose (65-100) mg/dL POC Glucose 405 H (70-105) Calcium (8.4-10.2) mg/dL Total Bilirubin (0.1-1.2) mg/dL AST (5-40) units/L ALT (7-56) units/L Alkaline Phosphatase (35-129) units/L Total Protein (6.3-8.2) g/dL Albumin (3.9-5) g/dL Albumin/Globulin Ratio % Lipase (13-60) units/L HCG, Qual (Negative) 04/03/19 04/03/19 Range/Units 18:55 18:55 WBC (4.5-11.0) K/mm3 RBC (3.65-5.03) M/mm3 Hgb (10.1-14.3) gm/dl Hct (30.3-42.9) % MCV (79-97) fl MCH (28-32) pg MCHC (30-34) % RDW (13.2-15.2) % Plt Count (140-440) K/mm3 Lymph % (Auto) (13.4-35.0) % [place] % (Auto) (0.0-7.3) % Eos % (Auto) (0.0-4.3) % Baso % (Auto) (0.0-1.8) % Lymph # (1.2-5.4) K/mm3 [place] # (0.0-0.8) K/mm3 Eos # (0.0-0.4) K/mm3 Baso # (0.0-0.1) K/mm3 Seg Neutrophils % (40.0-70.0) % Seg Neutrophils # (1.8-7.7) K/mm3 VBG pH (7.320-7.420) Sodium 133 L (137-145) mmol/L Potassium 3.9 (3.6-5.0) mmol/L Chloride 100.1 (98-107) mmol/L Carbon Dioxide 14 L (22-30) mmol/L Anion Gap 23 mmol/L BUN 32 H (7-17) mg/dL Creatinine 2.1 H (0.7-1.2) mg/dL Estimated GFR 32 ml/min BUN/Creatinine Ratio 15 % Glucose 443 H (65-100) mg/dL POC Glucose (70-105) Calcium 8.5 (8.4-10.2) mg/dL Total Bilirubin 0.50 (0.1-1.2) mg/dL AST 18 (5-40) units/L ALT 15 (7-56) units/L Alkaline Phosphatase 99 (35-129) units/L Total Protein 8.8 H (6.3-8.2) g/dL Albumin 4.1 (3.9-5) g/dL Albumin/Globulin Ratio 0.9 % Lipase 71 H (13-60) units/L HCG, Qual Negative (Negative) - EKG Data -: EKG Interpreted by Ne EKG shows normal: sinus rhythm, ST-T waves Rate: tachycardia (105) - Radiology Data Radiology results: report reviewed CT ABDOMEN AND PELVIS WITHOUT CONTRAST INDICATION / CLINICAL INFORMATION: n,v, hyperglycemia, upper and mid abd pain. TECHNIQUE: Axial CT images were obtained through the abdomen and pelvis without IV contrast. All CT scans at this location are performed using CT dose reduction for ALARA by means of automated exposure control. COMPARISON: CT abdomen pelvis 01/15/2019 FINDINGS: LOWER CHEST: No significant abnormality. LIVER: No significant abnormality. GALLBLADDER: Surgically absent. BILE DUCTS: The common bile duct is mildly dilated, measuring up to 1.2 cm, but unchanged compared with prior examination and likely secondary to postcholecystectomy state. No intrahepatic biliary dilation. PANCREAS: No significant abnormality. SPLEEN: No significant abnormality. ADRENALS: No significant abnormality. RIGHT KIDNEY and URETER: No significant abnormality. LEFT KIDNEY and URETER: No significant abnormality. STOMACH and SMALL BOWEL: No significant abnormality. COLON: No significant abnormality. APPENDIX: No significant abnormality. PERITONEUM: No free fluid. No free air. No fluid collection. LYMPH NODES: No significant adenopathy. AORTA and ARTERIES: No significant abnormality. IVC and VEINS: No significant abnormality. URINARY BLADDER: Mildly distended but otherwise unremarkable. REPRODUCTIVE ORGANS: No significant abnormality. ADDITIONAL FINDINGS: Mild eventration of the anterior abdominal wall. SKELETAL SYSTEM: No significant abnormality. IMPRESSION: 1. No acute process identified within the abdomen or pelvis to account for patient's abdominal pain. - Medical Decision Making Pt with DKA and uncontrolled hypertension. Blood pressure improved to labetalol. Patient received an IV hydration, insulin bolus and insulin drip. CT abdomen pelvis does not show any acute pathology. Urine collectoin pending at disposition. Patient will be admitted for further treatment for DKA with associated by mouth intolerance and acute renal insufficiency. - Differential Diagnosis dka, uti, pancreatitis, renal insufficiency, gastroparesis, abd infecti Critical Care Time: No Critical care attestation.: If time is entered above; I have spent that time in minutes in the direct care of this critically ill patient, excluding procedure time. ED Disposition Clinical Impression: Gastroparesis, DKA (diabetic ketoacidoses), Acute renal failure, Uncontrolled hypertension, Noncompliance with medication regimen Disposition: OP ADMIT IP TO THIS HOSP Is pt being admited?: Yes Condition: Stable Instructions: Hypertension (ED) Time of Disposition: 22:41 (Dr Chapman)
[2019-04-03] MEDS ORDERED: DEXTROSE 50% IN WATER (25GM) 50 ML SYRINGE IV PRN (20:39)
[2019-04-03] MEDS ORDERED: INSULIN REGULAR, HUMAN 100 UNITS in SODIUM CHLORIDE 0.9% 99 ML IV SCH (21:00)
--- NOTE | 2019-04-03 22:17 | Cat Scan Report ---
CT ABDOMEN AND PELVIS WITHOUT CONTRAST INDICATION / CLINICAL INFORMATION: n,v, hyperglycemia, upper and mid abd pain. TECHNIQUE: Axial CT images were obtained through the abdomen and pelvis without IV contrast. All CT scans at is location are performed using CT dose reduction for ALARA by means of automated exposure control. COMPARISON: CT abdomen pelvis 01/15/2019 FINDINGS: LOWER CHEST: No significant abnormality. LIVER: No significant abnormality. GALLBLADDER: Surgically absent. BILE DUCTS: The common bile duct is mildly dilated, measuring up to 1.2 cm, but unchanged compared wi prior examination and likely secondary to postcholecystectomy state. No intrahepatic biliary dilat ion. PANCREAS: No significant abnormality. SPLEEN: No significant abnormality. ADRENALS: No significant abnormality. RIGHT KIDNEY and URETER: No significant abnormality. LEFT KIDNEY and URETER: No significant abnormality. STOMACH and SMALL BOWEL: No significant abnormality. COLON: No significant abnormality. APPENDIX: No significant abnormality. PERITONEUM: No free fluid. No free air. No fluid collection. LYMPH NODES: No significant adenopathy. AORTA and ARTERIES: No significant abnormality. IVC and VEINS: No significant abnormality. URINARY BLADDER: Mildly distended but otherwise unremarkable. REPRODUCTIVE ORGANS: No significant abnormality. ADDITIONAL FINDINGS: Mild eventration of the anterior abdominal wall. SKELETAL SYSTEM: No significant abnormality. IMPRESSION: 1. No acute process identified within the abdomen or pelvis to account for patient's abdominal pain. Signer Name: Yuli Hagan MD Signed: 04/03/2019 10:12 PM Workstation Name: [id number]
--- NOTE | 2019-04-03 22:52 | History and Physical Report ---
History of Present Illness History of present illness: 38-year-old woman with a history of diabetes completed by gastroparesis, hypertension, cardiomyopathy in 2013 after childbirth comes to the ER with complaints of nausea vomiting started yesterday, unable to tolerate oral intake. Patient stated her blood sugar has been running really high at home, close to 500. Also complaining of abdominal pain and mid abdomen which she describes as sharp pain, constant, intensity 5/10, no radiation, cannot identify exacerbating factors. In the ER she was found to be in DKA, started on fluids and insulin drip Review of systems Constitutional: no weight loss, chills, fever Ears, eyes, nose, mouth and throat: no nasal congestion, no nasal discharge, no sinus pressure, no vision change, no red eye. Neck: No neck pain or rigidity. Cardiovascular: no palpitations, chest pain Respiratory: no cough, shortness of breath Gastrointestinal: no hematochezia Genitourinary : no frequency , no hematuria Musculoskeletal: no joint swelling or muscle ache Integumentary: no rash, no pruritis Neurological: no parathesias, no focal weakness Endocrine: no cold or heat intolerance, no polyuria or polydipsia Hematologic/Lymphatic: no easy bruising, no easy bleeding, no gland swelling Allergic/Immunologic: no urticaria, no angioedema. PAST MEDICAL HISTORY: diabetes, hypertension, cardiomyopathy PAST SURGICAL HISTORY: 3, cholecystectomy SOCIAL HISTORY: Denies alcohol, drugs, tobacco FAMILY HISTORY: Hypertension, diabetes Medications and Allergies Allergies Allergy/AdvReac Type Severity Reaction Status Date / Time acetaminophen [From Percocet] Allergy Vomiting Verified 01/15/19 17:09 haloperidol [From Haldol] Allergy Nausea Verified 01/15/19 17:09 oxycodone HCl [From Percocet] Allergy Vomiting Verified 01/15/19 17:09 Home Medications Medication Instructions Recorded Confirmed Last Taken Type Acetaminophen [Acetaminophen TAB] 650 mg PO Q6HR PRN #30 tablet 02/02/13 04/04/19 01/14/19 Rx Promethazine HCl [Promethazine TAB] 25 mg PO Q6H PRN #20 tablet 02/02/13 04/04/19 01/14/19 Rx amLODIPine 5 mg PO QDAY #30 tablet 02/02/13 04/04/19 01/14/19 Rx carvediloL [Coreg] 25 mg PO Q12HR #60 tablet 02/02/13 04/04/19 01/14/19 Rx Dicyclomine [Bentyl] 10 mg PO QID PRN #30 capsule 01/18/19 04/04/19 Unknown Rx Insulin Glargine [Lantus VIAL] 15 units SUB-Q QHS #1 vial 04/06/19 Unknown Rx Insulin Regular, Human [HumuLIN R] 5 units SUB-Q ACHS #2 vial 04/06/19 Unknown Rx Ondansetron [Zofran ODT TAB] 4 mg PO Q8HR PRN #30 tab.rapdis 04/06/19 Unknown Rx Active Meds: Active Medications Dextrose (D50w (25gm) Syringe) 0 ml IV Q30MIN PRN; Protocol PRN Reason: Hypoglycemia Insulin Human Regular 100 (units/ Sodium Chloride) 100 mls @ 1 mls/hr IV TITR ARTHUR; Protocol Last Admin: 04/03/19 21:54 Dose: 6 units/hr, 6 mls/hr Documented by: Sodium Chloride (Nacl 0.9% 1000 Ml) 1,000 mls @ 999 mls/hr IV BOLUS ONE Stop: 04/03/19 23:40 Exam - Physical Exam Narrative exam: Gen. appearance: Patient lying in bed, no apparent distress HEENT: Normocephalic, atraumatic, pupils equally round and reactive to light, extraocular movement intact, and no sclericterus,. No JVD or thyromegaly or nodule,neck supple, no carotid bruit ,mucous membranes dry, no exudate or erythema Heart: S1, S2, regular rate and rhythm Lungs: Clear bilaterally, breathing comfortable Abdomen: Positive bowel sounds, tender in the mid abdomen, nondistended, no organomegaly Extremity:no edema cyanosis, clubbing Skin: no rash, dry, warm Neuro: Oriented 3, cranial nerves II-12 intact, speech is fluent, motor and sensory intact - Constitutional Vitals: Temp Pulse Resp BP Pulse Ox 98.4 F 102 H 19 164/97 100 04/03/19 19:37 04/03/19 21:00 04/03/19 21:00 04/03/19 21:00 04/03/19 21:00 Results - Labs CBC & Chem 7: 04/03/19 18:55 04/06/19 07:49 Labs: Abnormal lab results 04/03/19 04/03/19 04/03/19 Range/Units 18:42 18:54 18:55 MCV 71 L (79-97) fl MCH 22 L (28-32) pg RDW 19.4 H (13.2-15.2) % Lymph % (Auto) 8.3 L (13.4-35.0) % Lymph # 0.9 L (1.2-5.4) K/mm3 Seg Neutrophils % 86.7 H (40.0-70.0) % Seg Neutrophils # 9.5 H (1.8-7.7) K/mm3 VBG pH 7.288 L (7.320-7.420) Sodium (137-145) mmol/L Carbon Dioxide (22-30) mmol/L BUN (7-17) mg/dL Creatinine (0.7-1.2) mg/dL Glucose (65-100) mg/dL POC Glucose 405 H (70-105) Total Protein (6.3-8.2) g/dL Lipase (13-60) units/L 04/03/19 Range/Units 18:55 MCV (79-97) fl MCH (28-32) pg RDW (13.2-15.2) % Lymph % (Auto) (13.4-35.0) % Lymph # (1.2-5.4) K/mm3 Seg Neutrophils % (40.0-70.0) % Seg Neutrophils # (1.8-7.7) K/mm3 VBG pH (7.320-7.420) Sodium 133 L (137-145) mmol/L Carbon Dioxide 14 L (22-30) mmol/L BUN 32 H (7-17) mg/dL Creatinine 2.1 H (0.7-1.2) mg/dL Glucose 443 H (65-100) mg/dL POC Glucose (70-105) Total Protein 8.8 H (6.3-8.2) g/dL Lipase 71 H (13-60) units/L - Imaging and Cardiology CT scan - abdomen: report reviewed CT scan - pelvis: report reviewed Assessment and Plan assessment DKA /Metabolic acidosis/pseudohyponatremia Start DKA protocol with insulin drip, IV fluid Monitor serial chemistries, check hemoglobin A1c Consult critical care Patient was diagnosed with cardiomyopathy in 2012 She received IV fluids on subsequent admission, did fine monitor for signs and symptoms of CHF Abdominal pain also secondary to gastroparesis IV morphine, DKA management Acute renal insufficiency Continue IV fluids Hypertension Continued appropriate outpatient medications DVT prophylaxis
[2019-04-04 00:13] LABS: Calcium 8.3 mg/dL (8.4-10.2)
[2019-04-04] MEDS ORDERED: MORPHINE 2 MG/1 ML INJ ONE ×3 (00:48→12:36)
[2019-04-04] MEDS ORDERED: ONDANSETRON 4 MG/2 ML INJ ONE ×2 (00:49→07:22)
[2019-04-04] MEDS: ONDANSETRON 4 MG/2 ML INJ IV PRN ×3 (00:49→22:04)
[2019-04-04] MEDS: MORPHINE 2 MG/1 ML INJ IV PRN ×6 (00:50→21:56)
[2019-04-04 01:45] LABS: Bacteria,Urine 4+ /HPF (Negative); Bilirubin,Urine NEG (Negative); Blood,Urine NEG (Negative); Color,Urine Yellow (Yellow); Mucus,Urine FEW /HPF; Urobilinogen,Urine < 2.0 mg/dL (<2.0)
[2019-04-04 01:49] LABS: Calcium 8.1 mg/dL (8.4-10.2)
[2019-04-04] MEDS ORDERED: D5W/0.45% NACL 1,000 ML IV SCH (03:00)
[2019-04-04 04:55] LABS: Calcium 8.2 mg/dL (8.4-10.2)
[2019-04-04] MEDS ORDERED: D5W/0.2% NACL 1,000 ML IV ONE (06:07)
[2019-04-04] MEDS ORDERED: PROMETHAZINE HCL 25 MG PO PRN (10:30)
[2019-04-04] MEDS ORDERED: PROMETHAZINE 25 MG TAB PO PRN (10:55)
[2019-04-04] MEDS: carvediloL 25 MG TAB PO SCH ×2 (10:56→22:19)
[2019-04-04] MEDS: amLODIPine 5 MG TAB PO SCH (10:56)
[2019-04-04] MEDS ORDERED: INSULIN REGULAR, HUMAN 100 UNITS/1 ML ONE (12:04)
[2019-04-04] MEDS ORDERED: DICYCLOMINE 10 MG CAP ONE (12:05)
[2019-04-04] MEDS ORDERED: ENOXAPARIN 40 MG/0.4 ML INJ SUB-Q ONE (12:05)
[2019-04-04] MEDS ORDERED: hydrALAZINE 20 MG/1 ML INJ ONE (12:06)
[2019-04-04] MEDS: ENOXAPARIN 40 MG/0.4 ML INJ SUB-Q SCH (12:08)
[2019-04-04] MEDS: INSULIN REGULAR, HUMAN 100 UNITS/1 ML SUB-Q SCH ×3 (12:08→21:58)
[2019-04-04] MEDS: hydrALAZINE 20 MG/1 ML INJ IV PRN ×2 (12:09→22:16)
[2019-04-04] MEDS: DICYCLOMINE 10 MG CAP PO PRN (12:09)
--- NOTE | 2019-04-04 15:01 | Progress Note ---
Assessment and Plan /Hyperosmolar nonketotic coma with pseudohyponatremia Started on insulin drip, IV fluid hemoglobin A1c, 10.7, no ketone in urine BG improved today, will stop insulin drip and change to subqu insulin start on consistent carb diet monitor bmp /H/o ardiomyopathy in 2012, now compensated She received IV fluids on subsequent admission, did fine monitor for signs and symptoms of CHF /Abdominal pain could be secondary to gastroparesis iv reglan, PPI for now /Acute renal insufficiency, due to vasomotor nephropathy Continue IV fluids /Hypertension Continued appropriate outpatient medications /Metabolic acidosis, likely from worsening renal function, cont to monitor /DVT prophylaxis, lovenox Brief History: 38-year-old woman with a history of diabetes completed by gastroparesis, hypertension, cardiomyopathy in 2012 after childbirth comes to the ER with complaints of nausea vomiting , unable to tolerate oral intake. Patient stated her blood sugar has been running really high at home, close to 500. Also complaining of abdominal pain. In the ER she was found to have BG ~500, started on fluids and insulin drip Radiological data: CT abdomen/pelvis- no acute process Hospitalist Physical exam: GENERAL: well-developed and well-nourished female lying on bed appeared to be in no discomfort. HEENT: Normocephalic. Atraumatic. No conjunctival congestion or icterus. Patient has moist mucous membranes. NECK: Supple. Trachea midline. CHEST/LUNGS: Clear to auscultated bilaterally, breathing nonlabored. No wheezes crackles or rhonchi. HEART/CARDIOVASCULAR: Regular in rate and rhythm. S1 and S2 positive. ABDOMEN: Abdomen is soft, nontender. Patient has normal bowel sounds. SKIN: There is no rash. Warm and dry. NEURO: No focal motor deficit. Follows command. MUSCULOSKELETAL: No joint effusion or tenderness. EXTRIMITY: No edema, no cyanosis or clubbing. PSYCH: Cooperative. Subjective Date of service: 04/04/19 Interval history: Patient seen and examined. Medical records and medication list reviewed. Patient denies any chest pain or difficulty breathing. Patient c/o nausea and abdominal pain. Discussed plan of care at bedside with patient. Objective - Constitutional Vitals: Vital Signs - 12hr 04/04/19 04/04/19 04/04/19 03:15 03:31 03:45 Pulse Rate 106 H 117 H 107 H Respiratory 15 15 18 Rate Blood Pressure 196/112 196/112 196/112 O2 Sat by Pulse 100 100 100 Oximetry 04/04/19 04/04/19 04/04/19 04:00 04:31 04:55 Pulse Rate 105 H 102 H Respiratory 14 13 18 Rate Blood Pressure 203/118 203/118 O2 Sat by Pulse 100 100 Oximetry 04/04/19 04/04/19 04/04/19 05:00 05:31 06:00 Pulse Rate 113 H 104 H 101 H Respiratory 15 15 15 Rate Blood Pressure 203/129 215/131 199/120 O2 Sat by Pulse 100 100 99 Oximetry 04/04/19 04/04/19 04/04/19 06:31 07:00 07:31 Pulse Rate 101 H 102 H 104 H Respiratory 32 H 13 12 Rate Blood Pressure 199/120 183/107 183/107 O2 Sat by Pulse 99 100 97 Oximetry 04/04/19 04/04/19 04/04/19 08:00 08:31 09:00 Pulse Rate 98 H 99 H 97 H Respiratory 14 14 13 Rate Blood Pressure 183/108 183/108 183/110 O2 Sat by Pulse 100 100 100 Oximetry 04/04/19 04/04/19 04/04/19 09:31 10:00 10:56 Pulse Rate 101 H 101 H 110 H Respiratory 14 13 Rate Blood Pressure 183/110 170/101 170/101 O2 Sat by Pulse 100 100 Oximetry 04/04/19 04/04/19 04/04/19 11:00 12:00 12:09 Pulse Rate 107 H 92 H 90 Respiratory 11 L 12 Rate Blood Pressure 204/134 170/100 170/100 O2 Sat by Pulse 100 100 Oximetry 04/04/19 04/04/19 13:00 14:01 Pulse Rate 92 H 100 H Respiratory 13 27 H Rate Blood Pressure 123/72 123/72 O2 Sat by Pulse 100 99 Oximetry - Labs CBC & Chem 7: 04/03/19 18:55 04/04/19 19:52 Labs: Abnormal lab results 04/03/19 04/03/19 04/03/19 Range/Units 18:42 18:54 18:55 MCV 71 L (79-97) fl MCH 22 L (28-32) pg RDW 19.4 H (13.2-15.2) % Lymph % (Auto) 8.3 L (13.4-35.0) % Lymph # 0.9 L (1.2-5.4) K/mm3 Seg Neutrophils % 86.7 H (40.0-70.0) % Seg Neutrophils # 9.5 H (1.8-7.7) K/mm3 VBG pH 7.288 L (7.320-7.420) Sodium (137-145) mmol/L Chloride (98-107) mmol/L Carbon Dioxide (22-30) mmol/L BUN (7-17) mg/dL Creatinine (0.7-1.2) mg/dL Glucose (65-100) mg/dL POC Glucose 405 H (70-105) Hemoglobin A1c (4-6) % Calcium (8.4-10.2) mg/dL Total Protein (6.3-8.2) g/dL Lipase (13-60) units/L 04/03/19 04/03/19 04/03/19 Range/Units 18:55 18:55 22:01 MCV (79-97) fl MCH (28-32) pg RDW (13.2-15.2) % Lymph % (Auto) (13.4-35.0) % Lymph # (1.2-5.4) K/mm3 Seg Neutrophils % (40.0-70.0) % Seg Neutrophils # (1.8-7.7) K/mm3 VBG pH (7.320-7.420) Sodium 133 L (137-145) mmol/L Chloride (98-107) mmol/L Carbon Dioxide 14 L (22-30) mmol/L BUN 32 H (7-17) mg/dL Creatinine 2.1 H (0.7-1.2) mg/dL Glucose 443 H (65-100) mg/dL POC Glucose 340 H (70-105) Hemoglobin A1c 10.7 H (4-6) % Calcium (8.4-10.2) mg/dL Total Protein 8.8 H (6.3-8.2) g/dL Lipase 71 H (13-60) units/L 04/03/19 04/03/19 04/04/19 Range/Units 23:17 23:17 00:35 MCV (79-97) fl MCH (28-32) pg RDW (13.2-15.2) % Lymph % (Auto) (13.4-35.0) % Lymph # (1.2-5.4) K/mm3 Seg Neutrophils % (40.0-70.0) % Seg Neutrophils # (1.8-7.7) K/mm3 VBG pH (7.320-7.420) Sodium (137-145) mmol/L Chloride (98-107) mmol/L Carbon Dioxide 15 L (22-30) mmol/L BUN 32 H (7-17) mg/dL Creatinine 1.9 H (0.7-1.2) mg/dL Glucose 276 H (65-100) mg/dL POC Glucose 288 H 203 H (70-105) Hemoglobin A1c (4-6) % Calcium 8.3 L (8.4-10.2) mg/dL Total Protein (6.3-8.2) g/dL Lipase (13-60) units/L 04/04/19 04/04/19 04/04/19 Range/Units 00:57 02:36 03:44 MCV (79-97) fl MCH (28-32) pg RDW (13.2-15.2) % Lymph % (Auto) (13.4-35.0) % Lymph # (1.2-5.4) K/mm3 Seg Neutrophils % (40.0-70.0) % Seg Neutrophils # (1.8-7.7) K/mm3 VBG pH (7.320-7.420) Sodium (137-145) mmol/L Chloride 109.9 H (98-107) mmol/L Carbon Dioxide 14 L (22-30) mmol/L BUN 30 H (7-17) mg/dL Creatinine 1.8 H (0.7-1.2) mg/dL Glucose 206 H (65-100) mg/dL POC Glucose 209 H 202 H (70-105) Hemoglobin A1c (4-6) % Calcium 8.1 L (8.4-10.2) mg/dL Total Protein (6.3-8.2) g/dL Lipase (13-60) units/L 04/04/19 04/04/19 04/04/19 Range/Units 04:14 04:59 06:09 MCV (79-97) fl MCH (28-32) pg RDW (13.2-15.2) % Lymph % (Auto) (13.4-35.0) % Lymph # (1.2-5.4) K/mm3 Seg Neutrophils % (40.0-70.0) % Seg Neutrophils # (1.8-7.7) K/mm3 VBG pH (7.320-7.420) Sodium (137-145) mmol/L Chloride 110.3 H (98-107) mmol/L Carbon Dioxide 15 L (22-30) mmol/L BUN 27 H (7-17) mg/dL Creatinine 1.7 H (0.7-1.2) mg/dL Glucose 195 H (65-100) mg/dL POC Glucose 173 H 187 H (70-105) Hemoglobin A1c (4-6) % Calcium 8.2 L (8.4-10.2) mg/dL Total Protein (6.3-8.2) g/dL Lipase (13-60) units/L 04/04/19 04/04/19 04/04/19 Range/Units 07:35 08:57 09:41 MCV (79-97) fl MCH (28-32) pg RDW (13.2-15.2) % Lymph % (Auto) (13.4-35.0) % Lymph # (1.2-5.4) K/mm3 Seg Neutrophils % (40.0-70.0) % Seg Neutrophils # (1.8-7.7) K/mm3 VBG pH (7.320-7.420) Sodium (137-145) mmol/L Chloride (98-107) mmol/L Carbon Dioxide (22-30) mmol/L BUN (7-17) mg/dL Creatinine (0.7-1.2) mg/dL Glucose (65-100) mg/dL POC Glucose 180 H 179 H 178 H (70-105) Hemoglobin A1c (4-6) % Calcium (8.4-10.2) mg/dL Total Protein (6.3-8.2) g/dL Lipase (13-60) units/L 04/04/19 04/04/19 04/04/19 Range/Units 10:49 12:02 13:31 MCV (79-97) fl MCH (28-32) pg RDW (13.2-15.2) % Lymph % (Auto) (13.4-35.0) % Lymph # (1.2-5.4) K/mm3 Seg Neutrophils % (40.0-70.0) % Seg Neutrophils # (1.8-7.7) K/mm3 VBG pH (7.320-7.420) Sodium 134 L (137-145) mmol/L Chloride (98-107) mmol/L Carbon Dioxide 16 L (22-30) mmol/L BUN 24 H (7-17) mg/dL Creatinine 1.5 H (0.7-1.2) mg/dL Glucose 257 H (65-100) mg/dL POC Glucose 173 H 197 H (70-105) Hemoglobin A1c (4-6) % Calcium 8.0 L (8.4-10.2) mg/dL Total Protein (6.3-8.2) g/dL Lipase (13-60) units/L
[2019-04-04 20:29] LABS: Calcium 8.5 mg/dL (8.4-10.2)
[2019-04-04] MEDS: INSULIN GLARGINE 100 UNITS/ML SUB-Q SCH (21:57)
[2019-04-05] MEDS: DICYCLOMINE 10 MG CAP PO PRN (02:43)
[2019-04-05 05:56] LABS: Calcium 8.4 mg/dL (8.4-10.2)
[2019-04-05] MEDS ORDERED: METOCLOPRAMIDE 10 MG/2 ML INJ IV SCH (07:30)
[2019-04-05] MEDS ORDERED: oxyCODONE /ACETAMINOPHEN 5-325MG TAB PO PRN (08:15)
[2019-04-05] MEDS: SODIUM CHLORIDE 0.9% 1000 ML 1,000 ML IV SCH ×2 (08:57→17:43)
[2019-04-05] MEDS: ONDANSETRON 4 MG/2 ML INJ IV PRN ×3 (09:13→23:06)
[2019-04-05] MEDS: INSULIN REGULAR, HUMAN 100 UNITS/1 ML SUB-Q SCH ×3 (09:14→17:36)
[2019-04-05] MEDS: MORPHINE 2 MG/1 ML INJ IV PRN ×2 (09:31→17:37)
[2019-04-05] MEDS: ENOXAPARIN 40 MG/0.4 ML INJ SUB-Q SCH (09:33)
[2019-04-05] MEDS: amLODIPine 5 MG TAB PO SCH (09:40)
[2019-04-05] MEDS: carvediloL 25 MG TAB PO SCH ×2 (09:40→22:39)
--- NOTE | 2019-04-05 09:47 | Progress Note ---
Assessment and Plan Assessment and plan: --Intractable nausea vomiting; Probably mild gastroparesis, IV fluids and antiemetics, supportive care --Hyperosmolar nonketotic coma with pseudohyponatremia;POA s/p insulin drip, IV fluid, hemoglobin A1c, 10.7, Now on long-acting insulin, consistent carb diet Monitor and adjust the dose --H/o Cardiomyopathy in 2012, now well compensated She received IV fluids on subsequent admission, did fine Most recent EF 55% --Abdominal pain could be secondary to gastroparesis iv reglan, PPI for now --Acute renal insufficiency, due to vasomotor nephropathy Continue IV fluids, creatinine 1.6 today, IV fluids Monitor renal function, avoid nephrotoxins --Hypertension; moderate control Continued current antihypertensives and PRN medications --Metabolic acidosis, likely from worsening renal function, cont to monitor --DVT prophylaxis, lovenox Advance diet as tolerated Closely monitor the patient and adjust the management as needed Possible discharge tomorrow if stable History Interval history: Patient seen and examined medical records reviewed Patient continues to have nausea vomiting Slightly improved since yesterday, also complains of abdominal pain Alert awake oriented Vital signs reviewed Hospitalist Physical - Constitutional Vitals: Temp Pulse Resp BP Pulse Ox 98.7 F 91 H 18 166/100 98 04/05/19 05:01 04/05/19 09:40 04/05/19 05:01 04/05/19 09:40 04/05/19 05:01 General appearance: Present: no acute distress, well-nourished - EENT Eyes: Present: PERRL, EOM intact - Neck Neck: Present: supple, normal ROM - Respiratory Respiratory effort: normal Respiratory: bilateral: diminished, negative: rales, rhonchi, wheezing - Cardiovascular Rhythm: regular Heart Sounds: Present: S1 & S2 - Extremities Extremities: no ischemia, No edema Extremity abnormal: edema, cyanosis - Abdominal General gastrointestinal: soft, non-tender, non-distended, normal bowel sounds - Integumentary Integumentary: Present: clear, warm - Psychiatric Psychiatric: appropriate mood/affect, cooperative - Neurologic Neurologic: CNII-XII intact, moves all extremities Results - Labs CBC & Chem 7: 04/03/19 18:55 04/05/19 05:03 Labs: Laboratory Last Values WBC 11.0 K/mm3 (4.5-11.0) 04/03/19 18:55 RBC 4.68 M/mm3 (3.65-5.03) 04/03/19 18:55 Hgb 10.1 gm/dl (10.1-14.3) 04/03/19 18:55 Hct 33.2 % (30.3-42.9) 04/03/19 18:55 MCV 71 fl (79-97) L 04/03/19 18:55 MCH 22 pg (28-32) L 04/03/19 18:55 MCHC 30 % (30-34) 04/03/19 18:55 RDW 19.4 % (13.2-15.2) H 04/03/19 18:55 Plt Count 281 K/mm3 (140-440) 04/03/19 18:55 Lymph % (Auto) 8.3 % (13.4-35.0) L 04/03/19 18:55 [place] % (Auto) 4.8 % (0.0-7.3) 04/03/19 18:55 Eos % (Auto) 0.1 % (0.0-4.3) 04/03/19 18:55 Baso % (Auto) 0.1 % (0.0-1.8) 04/03/19 18:55 Lymph # 0.9 K/mm3 (1.2-5.4) L 04/03/19 18:55 [place] # 0.5 K/mm3 (0.0-0.8) 04/03/19 18:55 Eos # 0.0 K/mm3 (0.0-0.4) 04/03/19 18:55 Baso # 0.0 K/mm3 (0.0-0.1) 04/03/19 18:55 Seg Neutrophils % 86.7 % (40.0-70.0) H 04/03/19 18:55 Seg Neutrophils # 9.5 K/mm3 (1.8-7.7) H 04/03/19 18:55 VBG pH 7.288 (7.320-7.420) L 04/03/19 18:54 Sodium 136 mmol/L (137-145) L 04/05/19 05:03 Potassium 4.0 mmol/L (3.6-5.0) 04/05/19 05:03 Chloride 103.4 mmol/L (98-107) 04/05/19 05:03 Carbon Dioxide 18 mmol/L (22-30) L 04/05/19 05:03 Anion Gap 19 mmol/L 04/05/19 05:03 BUN 19 mg/dL (7-17) H 04/05/19 05:03 Creatinine 1.6 mg/dL (0.7-1.2) H 04/05/19 05:03 Estimated GFR 44 ml/min 04/05/19 05:03 BUN/Creatinine Ratio 12 % 04/05/19 05:03 Glucose 272 mg/dL (65-100) H 04/05/19 05:03 POC Glucose 255 (70-105) H 04/05/19 08:00 Hemoglobin A1c 10.7 % (4-6) H 04/03/19 18:55 Calcium 8.4 mg/dL (8.4-10.2) 04/05/19 05:03 Phosphorus 3.40 mg/dL (2.5-4.5) 04/03/19 23:17 Magnesium 1.90 mg/dL (1.7-2.3) 04/03/19 23:17 Total Bilirubin 0.50 mg/dL (0.1-1.2) 04/03/19 18:55 AST 18 units/L (5-40) 04/03/19 18:55 ALT 15 units/L (7-56) 04/03/19 18:55 Alkaline Phosphatase 99 units/L (35-129) 04/03/19 18:55 Total Protein 8.8 g/dL (6.3-8.2) H 04/03/19 18:55 Albumin 4.1 g/dL (3.9-5) 04/03/19 18:55 Albumin/Globulin Ratio 0.9 % 04/03/19 18:55 Lipase 71 units/L (13-60) H 04/03/19 18:55 HCG, Qual Negative (Negative) 04/03/19 18:55 Urine Color Yellow (Yellow) 04/04/19 00:56 Urine Turbidity Slightly-cloudy (Clear) 04/04/19 00:56 Urine pH 5.0 (5.0-7.0) 04/04/19 00:56 Ur Specific [place] 1.023 (1.003-1.030) 04/04/19 00:56 Urine Protein 30 mg/dl mg/dL (Negative) 04/04/19 00:56 Urine Glucose (UA) >=500 mg/dL (Negative) 04/04/19 00:56 Urine Ketones Neg mg/dL (Negative) 04/04/19 00:56 Urine Blood Neg (Negative) 04/04/19 00:56 Urine Nitrite Neg (Negative) 04/04/19 00:56 Urine Bilirubin Neg (Negative) 04/04/19 00:56 Urine Urobilinogen < 2.0 mg/dL (<2.0) 04/04/19 00:56 Ur Leukocyte Esterase Neg (Negative) 04/04/19 00:56 Urine WBC (Auto) 6.0 /HPF (0.0-6.0) 04/04/19 00:56 Urine RBC (Auto) 4.0 /HPF (0.0-6.0) 04/04/19 00:56 U Epithel Cells (Auto) 7.0 /HPF (0-13.0) 04/04/19 00:56 Urine Bacteria (Auto) 4+ /HPF (Negative) 04/04/19 00:56 Urine Mucus Few /HPF 04/04/19 00:56 Active Medications - Current Medications Current Medications: Generic Name Dose Route Start Last Admin Trade Name Freq PRN Reason Stop Dose Admin Amlodipine Besylate 5 mg 04/04/19 11:00 04/05/19 09:40 Amlodipine PO 5 mg QDAY ARTHUR Administration Carvedilol 25 mg 04/04/19 11:00 04/05/19 09:40 Coreg PO 25 mg Q12HR ARTHUR Administration Dextrose 0 ml 04/03/19 20:39 D50w (25gm) Syringe IV Q30MIN PRN Hypoglycemia Protocol Dicyclomine HCl 10 mg 04/04/19 10:30 04/05/19 02:43 Bentyl PO 10 mg QID PRN Administration abdominal pain Enoxaparin Sodium 40 mg 04/04/19 10:00 04/05/19 09:33 Enoxaparin SUB-Q 40 mg QDAY@1000 ARTHUR Administration Hydralazine HCl 5 mg 04/04/19 10:32 04/04/19 22:16 Apresoline IV 5 mg Q30MIN PRN Administration Hypertension Sodium Chloride 1,000 mls @ 100 mls/hr 04/05/19 08:30 04/05/19 08:57 Nacl 0.9% 1000 Ml IV 100 mls/hr DIRECT ARTHUR Administration Insulin Glargine 15 units 04/04/19 22:00 04/04/19 21:57 Lantus SUB-Q 15 units QHS ARTHUR Administration Insulin Human Regular 0 units 04/04/19 11:30 04/05/19 09:14 Humulin R SUB-Q 3 units ACHS ARTHUR Administration Protocol Metoclopramide HCl 5 mg 04/05/19 08:13 Reglan PO ACHS PRN Nausea And Vomiting Morphine Sulfate 1 mg 04/05/19 08:56 04/05/19 09:31 Morphine IV 1 mg Q8H PRN Administration Pain, Moderate (4-6) Ondansetron HCl 4 mg 04/03/19 23:26 04/05/19 09:13 Zofran IV 4 mg Q4H PRN Administration Nausea And Vomiting Pantoprazole Sodium 40 mg 04/05/19 10:00 04/05/19 09:33 Protonix IV 04/05/19 23:59 40 mg QDAY ARTHUR Administration Pantoprazole Sodium 40 mg 04/06/19 10:00 Protonix PO DAILY ARTHUR Promethazine HCl 25 mg 04/04/19 10:55 Phenergan PO Q6H PRN Nausea And Vomiting Sodium Chloride 10 ml 04/04/19 10:00 04/05/19 09:41 Sodium Chloride Flush Syringe 10 Ml IV 10 ml BID ARTHUR Administration Sodium Chloride 10 ml 04/03/19 23:26 Sodium Chloride Flush Syringe 10 Ml IV PRN PRN LINE FLUSH
[2019-04-05] MEDS ORDERED: PANTOPRAZOLE 40 MG INJ IV SCH (10:00)
[2019-04-05] MEDS: INSULIN GLARGINE 100 UNITS/ML SUB-Q SCH (22:38)
[2019-04-05] MEDS: hydrALAZINE 20 MG/1 ML INJ IV PRN (23:06)
[2019-04-06] MEDS: INSULIN REGULAR, HUMAN 100 UNITS/1 ML SUB-Q SCH ×3 (00:18→12:35)
[2019-04-06] MEDS: MORPHINE 2 MG/1 ML INJ IV PRN ×2 (02:12→10:51)
[2019-04-06] MEDS: SODIUM CHLORIDE 0.9% 1000 ML 1,000 ML IV SCH (03:01)
[2019-04-06] MEDS: METOCLOPRAMIDE 10 MG TAB PO PRN ×2 (08:32→12:35)
[2019-04-06 08:37] LABS: Calcium 7.9 mg/dL (8.4-10.2)
[2019-04-06] MEDS ORDERED: PANTOPRAZOLE 40 MG TAB PO SCH (10:00)
[2019-04-06] MEDS: ENOXAPARIN 40 MG/0.4 ML INJ SUB-Q SCH (10:44)
[2019-04-06] MEDS: amLODIPine 5 MG TAB PO SCH (10:44)
[2019-04-06] MEDS: carvediloL 25 MG TAB PO SCH (10:44)
[2019-04-06] MEDS ORDERED: POTASSIUM CHLORIDE ER 20 MEQ TAB PO ONE (11:17)
--- NOTE | 2019-04-06 11:18 | Discharge Summary ---
Providers - Providers Date of Admission: 04/03/19 22:54 Date of discharge: 04/06/19 Attending physician: JET PAYAN Primary care physician: [facility] [facility] Hospitalization Reason for admission: intractable nausea vomiting/DKA Condition: Stable Pertinent studies: CT abdomen and pelvis; no acute abnormality noted Hospital course: 38-year-old woman with a history of diabetes , gastroparesis, hypertension, cardiomyopathy in 2012 after childbirth comes to the ER with complaints of nausea vomiting started yesterday, unable to tolerate oral intake. Patient stated her blood sugar has been running really high at home, close to 500. Also complaining of abdominal pain and mid abdomen which she describes as sharp pain, constant, intensity 5/10, no radiation, cannot identify exacerbating factors. In the ER she was found to be in DKA, started on fluids and insulin drip per protocol . Patients blood sugars reasonably controlled. Also has intractable nausea vomiting symptomatically managed Medications optimized, Symptoms gradually but significantly improved The patient is comfortable no new complaints vital signs stable physical examination is unremarkable Counseling none advised to comply with medications and diet and follow-up visits Stable at Discharge Discharge diagnosis: --Intractable nausea vomiting; Probably mild gastroparesis, IV fluids and antiemetics, supportive care --Hyperosmolar nonketotic coma with pseudohyponatremia;POA s/p insulin drip, IV fluid, hemoglobin A1c, 10.7, Now on long-acting insulin, consistent carb diet Monitor and adjust the dose --H/o Cardiomyopathy in 2012, now well compensated She received IV fluids on subsequent admission, did fine Most recent EF 55% --Abdominal pain could be secondary to gastroparesis iv reglan, PPI for now --Acute renal insufficiency, due to vasomotor nephropathy Continue IV fluids, creatinine 1.6 today, IV fluids Monitor renal function, avoid nephrotoxins --Hypertension; moderate control Continued current antihypertensives and PRN medications --Metabolic acidosis, likely from worsening renal function, cont to monitor --DVT prophylaxis, lovenox Stable at discharge Disposition: DC-01 TO HOME OR SELFCARE Time spent for discharge: 32 min Core Measure Documentation - Palliative Care Palliative Care/ Comfort Measures: Not Applicable - Core Measures Any of the following diagnoses?: none Exam - Constitutional Vitals: Temp Pulse Resp BP Pulse Ox 98.3 F 92 H 18 135/85 100 04/06/19 04:15 04/06/19 04:15 04/06/19 04:15 04/06/19 04:15 04/06/19 04:15 General appearance: Present: no acute distress, well-nourished - EENT Eyes: Present: PERRL, EOM intact - Neck Neck: Present: supple, normal ROM - Respiratory Respiratory effort: normal Respiratory: negative: rales, rhonchi, wheezing - Cardiovascular Rhythm: regular Heart Sounds: Present: S1 & S2 - Extremities Extremities: no ischemia, No edema - Abdominal General gastrointestinal: Present: soft, non-tender, non-distended, normal bowel sounds - Integumentary Integumentary: Present: clear, warm - Musculoskeletal Musculoskeletal: strength equal bilaterally - Psychiatric Psychiatric: appropriate mood/affect, cooperative - Neurologic Neurologic: CNII-XII intact, moves all extremities Plan Activity: no restrictions Diet: diabetic Additional Instructions: Advised to see private plastic tile layer for better control of blood sugars in 1-2 weeks. Advised 2 days work excuse on 04/07/2019 and 04/08/2019 Follow up with: PRIMARY CARE, [Primary Care Provider] - 3-5 Days Forms: Work/School Release Form Prescriptions: Insulin Regular, Human [HumuLIN R] 5 units SUB-Q ACHS #2 vial Insulin Glargine [Lantus VIAL] 15 units SUB-Q QHS #1 vial Ondansetron [Zofran ODT TAB] 4 mg PO Q8HR PRN #30 tab.rapdis PRN Reason: Nausea
[2019-04-06 13:55] VITALS: BP 142/84
== END 2019-04-06 15:04 | disposition home or self-care (01) | DRG 73 ==
LOC: ED 17:53 → CC1 22:54 → 3A 04-04 14:24
PROVIDERS: ADMIT Internal Medicine; ATTEND Internal Medicine
DX: E11.43 Type 2 diabetes mellitus with diabetic autonomic (poly)neuropathy (principal); N17.0 Acute kidney failure with tubular necrosis; I42.9 Cardiomyopathy, unspecified; K31.84 Gastroparesis; E11.01 Type 2 diabetes mellitus with hyperosmolarity with coma; I11.0 Hypertensive heart disease with heart failure; I50.9 Heart failure, unspecified; J45.909 Unspecified asthma, uncomplicated; Z79.4 Long term (current) use of insulin; Z88.5 Allergy status to narcotic agent; Z88.8 Allergy status to other drugs, medicaments and biological substances; Z90.49 Acquired absence of other specified parts of digestive tract; I25.2 Old myocardial infarction; Z87.442 Personal history of urinary calculi; Z88.6 Allergy status to analgesic agent; Z91.14 Patient's other noncompliance with medication regimen; Z83.3 Family history of diabetes mellitus; Z82.49 Family history of ischemic heart disease and other diseases of the circulatory system
CPT/HCPCS: 36415; 74176; 80048; 80053; 81001; 82805; 82962; 83036; 83690; 83735; 84100; 84703; 85025; 93005; 93010; G0378; C9113; J0360; J1170; J1650; J1815; J2270; J2405; J2765; J7030

== ENCOUNTER 2019-05-17 04:15 | Observation (INO) | payer OTHER ==
[2019-05-17] MEDS ORDERED: MORPHINE 4 MG/1 ML INJ IV ONE (04:45)
[2019-05-17] MEDS ORDERED: ONDANSETRON 4 MG/2 ML INJ IV ONE (04:45)
[2019-05-17] MEDS ORDERED: diphenhydrAMINE 50 MG/ML VIAL IV ONE (04:45)
--- NOTE | 2019-05-17 04:49 | Event Note ---
ED Screening Note ED Screening Note: Chief complaint: "It's DKA." Ms. Ryan is a 38 yo female with history of diabetes mellitus who presents with abdominal pain since 4 PM. Central severe diffuse crampy sharp pain. I performed screening exam. I have ordered IV fluid, IV medication. This initial assessment/diagnostic orders/clinical plan/treatment(s) is/are subject to change based on patients health status, clinical progression and re- assessment by fellow clinical providers in the ED. Further treatment and workup at subsequent clinical providers discretion. Patient/guardian urged not to elope from the ED as their condition may be serious if not clinically assessed and managed.
[2019-05-17 05:27] LABS: Albumin 4.4 g/dL (3.9-5); Calcium 9.2 mg/dL (8.4-10.2)
[2019-05-17] MEDS ORDERED: ONDANSETRON 4 MG ODT TAB PO ONE (05:27)
[2019-05-17 05:30] LABS: Basophils % (Auto) 0.4 % (0.0-1.8); Hematocrit 47.5 % (30.3-42.9); Lymphocytes # (Auto) 0.7 K/mm3 (1.2-5.4); Lymphocytes % (Auto) 8.6 % (13.4-35.0); Mean Corpuscular HGB Conc 32 % (30-34); Monocytes # (Auto) 0.1 K/mm3 (0.0-0.8); Monocytes % (Auto) 1.9 % (0.0-7.3); Platelet Count 261 K/mm3 (140-440); Red Blood Count 6.83 M/mm3 (3.65-5.03)
[2019-05-17 05:45] LABS: Mean Corpuscular Volume 70 fl (79-97); Red Cell Distribution Width 21.2 % (13.2-15.2)
[2019-05-17] MEDS ORDERED: SODIUM CHLORIDE 0.9% 1000 ML 1,000 ML IV ONE ×2 (06:19→07:50)
--- NOTE | 2019-05-17 06:25 | Emergency Department Report ---
HPI - General Chief Complaint: Abdominal Pain Time Seen by Provider: 05/17/19 06:10 - HPI HPI: Room 17 The patient is a 38-year-old female presenting with chief complaint of abdominal pain nausea vomiting. The patient states her symptoms began yesterday with diffuse abdominal pain nausea vomiting. Patient states she feels the same way she felt when she came to the hospital last month and was seen by myself. 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; cardiomy opathy and CHF) Hx Congestive Heart Failure: Yes Hx Diabetes: Yes Hx Kidney Stones: Yes Hx Asthma: Yes - Surgical History Past Surgical History?: Yes Hx Cholecystectomy: Yes Additional Surgical History: - Family History Family history: no significant - Social History Smoking Status: Never Smoker Substance Use Type: None - Medications Home Medications: Home Medications Medication Instructions Recorded Confirmed Last Taken Type Insulin Glargine [Lantus VIAL] 15 units SUB-Q QHS #1 vial 04/06/19 04/22/19 04/21/19 Rx Insulin Regular, Human [HumuLIN R] 5 units SUB-Q ACHS #2 vial 04/06/19 04/22/19 04/21/19 Rx amLODIPine 5 mg PO QDAY #30 tablet 04/26/19 Unknown Rx carvediloL [Coreg] 25 mg PO Q12HR #60 tablet 04/26/19 Unknown Rx ED Review of Systems ROS: Stated complaint: ABD PAIN,N/V Other details as noted in HPI Gastrointestinal: abdominal pain, nausea, vomiting Physical Exam - Physical Exam Vital Signs: Vital Signs 05/17/19 04:28 Temperature 99.2 F Pulse Rate 123 H Respiratory 20 Rate Blood Pressure 186/127 O2 Sat by Pulse 100 Oximetry Physical Exam: GENERAL: The patient is well-developed well-nourished female lying on stretcher not appearing to be in acute distress. [] HEENT: Normocephalic. Atraumatic. Extraocular motions are intact. Patient has moist mucous membranes. NECK: Supple. Trachea midline CHEST/LUNGS: Clear to auscultation. There is no respiratory distress noted. HEART/CARDIOVASCULAR: Regular. There is no tachycardia. There is no gallop rub or murmur. ABDOMEN: Abdomen is soft, with discomfort to palpation in the midepigastric region. Patient has normal bowel sounds. There is no abdominal distention. SKIN: There is no rash. There is no edema. There is no diaphoresis. NEURO: The patient is awake, alert, and oriented. The patient is cooperative. The patient has normal speech MUSCULOSKELETAL: There is no evidence of acute injury. ED Course Vital Signs 05/17/19 04:28 Temperature 99.2 F Pulse Rate 123 H Respiratory 20 Rate Blood Pressure 186/127 O2 Sat by Pulse 100 Oximetry ED Medical Decision Making - Lab Data Result diagrams: 05/17/19 04:57 05/17/19 04:57 Laboratory Tests 05/17/19 05/17/19 05/17/19 04:37 04:57 04:57 WBC 7.6 RBC 6.83 H Hgb 15.0 H Hct 47.5 H MCV 70 L MCH 22 L MCHC 32 RDW 21.2 H Plt Count 261 Lymph % (Auto) 8.6 L [place] % (Auto) 1.9 Eos % (Auto) 0.0 Baso % (Auto) 0.4 Lymph # 0.7 L [place] # 0.1 Eos # 0.0 Baso # 0.0 Seg Neutrophils % 89.1 H Seg Neutrophils # 6.8 VBG pH Sodium 141 Potassium 4.1 Chloride 101.9 Carbon Dioxide 19 L Anion Gap 24 BUN 14 Creatinine 1.3 H Estimated GFR 56 BUN/Creatinine Ratio 11 Glucose 326 H POC Glucose 300 H Calcium 9.2 Total Bilirubin 0.40 AST 18 ALT 10 Alkaline Phosphatase 106 Total Protein 8.1 Albumin 4.4 Albumin/Globulin Ratio 1.2 Lipase HCG, Qual 05/17/19 05/17/19 05/17/19 04:57 04:57 06:43 WBC RBC Hgb Hct MCV MCH MCHC RDW Plt Count Lymph % (Auto) [place] % (Auto) Eos % (Auto) Baso % (Auto) Lymph # [place] # Eos # Baso # Seg Neutrophils % Seg Neutrophils # VBG pH 7.368 Sodium Potassium Chloride Carbon Dioxide Anion Gap BUN Creatinine Estimated GFR BUN/Creatinine Ratio Glucose POC Glucose Calcium Total Bilirubin AST ALT Alkaline Phosphatase Total Protein Albumin Albumin/Globulin Ratio Lipase 3 L HCG, Qual Negative - Differential Diagnosis gastroparesis, DKA, hyperglycemia Critical care attestation.: If time is entered above; I have spent that time in minutes in the direct care of this critically ill patient, excluding procedure time. ED Disposition Clinical Impression: Acute abdominal pain, Nausea & vomiting, Tachycardia Disposition: DC-09 OP ADMIT IP TO THIS HOSP Is pt being admited?: Yes Does the pt Need Aspirin: No Condition: Fair Instructions: Abdominal Pain (ED) Referrals: PRIMARY CARE, [Primary Care Provider] - 3-5 Days Time of Disposition: 09:31 (hospitalist paged)
[2019-05-17] MEDS ORDERED: fentaNYL 100 MCG/2 ML INJ IV ONE (07:50)
[2019-05-17] MEDS ORDERED: PROMETHAZINE 25 MG TAB PO ONE (07:54)
[2019-05-17] MEDS ORDERED: hydrALAZINE 20 MG/1 ML INJ IV ONE (10:08)
[2019-05-17 10:11] LABS: Bacteria,Urine 1+ /HPF (Negative); Bilirubin,Urine NEG (Negative); Blood,Urine NEG (Negative); Color,Urine Yellow (Yellow); Mucus,Urine FEW /HPF; Urobilinogen,Urine < 2.0 mg/dL (<2.0)
[2019-05-17] MEDS ORDERED: hydrALAZINE 20 MG/1 ML INJ ONE (10:11)
[2019-05-17] MEDS ORDERED: amLODIPine 10 MG TAB ONE (11:17)
[2019-05-17] MEDS ORDERED: carvediloL 25 MG TAB ONE (11:17)
[2019-05-17] MEDS: amLODIPine 10 MG TAB PO SCH (11:22)
[2019-05-17] MEDS: carvediloL 25 MG TAB PO SCH ×2 (11:22→21:09)
[2019-05-17] MEDS ORDERED: ACETAMINOPHEN 325 MG TAB PO PRN (12:41)
--- NOTE | 2019-05-17 12:41 | History and Physical Report ---
History of Present Illness Date of examination: 05/17/19 Date of admission: 05/17/19 09:33 Chief complaint: abd pain, nausea, vomiting History of present illness: patient is 38-year-old with history of hypertension, diabetes, chronic CHF. She presents with history of abdominal pain nausea and vomiting for 1 day. Abdominal pain is 9 out of 10, dull pain,mid to upper abdomen with no radiation. Not related to meals. Patient not worse on exertion. She also has nausea and vomiting , and vomited 4 times a day. No blood in vomitus. She denies chest pain or shortness of breath. Patient was getting worse therefore came to emergency department for evaluation. She was seen and evaluated in the ED. She was found to have very high BP of 212/134 . She was given morphine IV for pain control and Hydralazine IV for blood pressure management. Will place on observ ation for further management. Past History Past Medical History: diabetes, heart failure, hypertension, other (asthma) Past Surgical History: , hysterectomy Social history: single, full code. denies: smoking, alcohol abuse Family history: diabetes Medications and Allergies Allergies Allergy/AdvReac Type Severity Reaction Status Date / Time acetaminophen [From Percocet] Allergy Vomiting Verified 01/15/19 17:09 haloperidol [From Haldol] Allergy Nausea Verified 01/15/19 17:09 oxycodone HCl [From Percocet] Allergy Vomiting Verified 01/15/19 17:09 metoclopramide [From Reglan] AdvReac Shortness Verified 04/25/19 18:51 of Breath Home Medications Medication Instructions Recorded Confirmed Last Taken Type Insulin Glargine [Lantus VIAL] 15 units SUB-Q QHS #1 vial 04/06/19 05/17/19 05/16/19 Rx Insulin Regular, Human [HumuLIN R] 5 units SUB-Q ACHS #2 vial 04/06/19 05/17/19 05/16/19 Rx amLODIPine 5 mg PO QDAY #30 tablet 04/26/19 05/17/19 05/16/19 Rx carvediloL [Coreg] 25 mg PO Q12HR #60 tablet 04/26/19 05/17/19 05/16/19 Rx Active Meds: Active Medications Amlodipine Besylate (Amlodipine) 10 mg PO QDAY ARTHUR Last Admin: 05/17/19 11:22 Dose: 10 mg Documented by: Carvedilol (Coreg) 25 mg PO Q12HR ARTHUR Last Admin: 05/17/19 11:22 Dose: 25 mg Documented by: Exam - Physical Exam Narrative exam: GEN: Not in acute distress, lying in bed, HEENT: Normocephalic, atraumatic, Neck: supple, No JVD Lungs:clear to auscultation, bilat heart;S1 and S2 reg, no murmurs Abd: soft, tender mid to upper abd, normal bowel sounds Ext: No edema, no clubbing, no cyanosis Neuro: AAO X 3, no focal neurological signs - Constitutional Vitals: Temp Pulse Resp BP Pulse Ox 98.1 F 112 H 18 183/114 96 05/17/19 12:12 05/17/19 12:12 05/17/19 12:12 05/17/19 12:12 05/17/19 12:12 Results - Labs CBC & Chem 7: 05/18/19 10:26 05/18/19 10:26 Labs: Abnormal lab results 05/17/19 05/17/19 05/17/19 Range/Units 04:37 04:57 04:57 RBC 6.83 H (3.65-5.03) M/mm3 Hgb 15.0 H (10.1-14.3) gm/dl Hct 47.5 H (30.3-42.9) % MCV 70 L (79-97) fl MCH 22 L (28-32) pg RDW 21.2 H (13.2-15.2) % Lymph % (Auto) 8.6 L (13.4-35.0) % Lymph # 0.7 L (1.2-5.4) K/mm3 Seg Neutrophils % 89.1 H (40.0-70.0) % Carbon Dioxide 19 L (22-30) mmol/L Creatinine 1.3 H (0.7-1.2) mg/dL Glucose 326 H (65-100) mg/dL POC Glucose 300 H (70-105) Lipase (13-60) units/L Urine WBC (Auto) (0.0-6.0) /HPF 05/17/19 05/17/19 Range/Units 04:57 09:45 RBC (3.65-5.03) M/mm3 Hgb (10.1-14.3) gm/dl Hct (30.3-42.9) % MCV (79-97) fl MCH (28-32) pg RDW (13.2-15.2) % Lymph % (Auto) (13.4-35.0) % Lymph # (1.2-5.4) K/mm3 Seg Neutrophils % (40.0-70.0) % Carbon Dioxide (22-30) mmol/L Creatinine (0.7-1.2) mg/dL Glucose (65-100) mg/dL POC Glucose (70-105) Lipase 3 L (13-60) units/L Urine WBC (Auto) 42.0 H (0.0-6.0) /HPF Assessment and Plan Acute gastritis Nausea/vomiting/abd pain Place on observation iv fluid Protonix iv Hypertensive urgency BP 212/134 Hydralazine iv prn Norvasc po, Coreg po DM type 2 accucheck qac and hs Chronic CHF, details unclear Get CXR Full code status
[2019-05-17] MEDS ORDERED: hydrALAZINE 20 MG/1 ML INJ IV PRN (12:45)
[2019-05-17] MEDS ORDERED: DEXTROSE 50% IN WATER (25GM) 50 ML SYRINGE IV PRN (12:54)
--- NOTE | 2019-05-17 13:22 | XRay Report ---
CHEST 1 VIEW INDICATION / CLINICAL INFORMATION: Congestive heart failure. COMPARISON: None available. FINDINGS: SUPPORT DEVICES: None. HEART / MEDIASTINUM: No significant abnormality. LUNGS / PLEURA: No significant pulmonary or pleural abnormality. No pneumothorax. IMPRESSION: No significant abnormality. Signer Name: Chris Mace MD Signed: 05/17/2019 1:17 PM Workstation Name: [id number]
[2019-05-17] MEDS: MORPHINE 2 MG/1 ML INJ IV PRN ×2 (14:09→21:06)
[2019-05-17] MEDS: ONDANSETRON 4 MG/2 ML INJ IV PRN ×2 (14:09→21:06)
[2019-05-17] MEDS: SODIUM CHLORIDE 0.9% 1000 ML 1,000 ML IV SCH (14:09)
[2019-05-17] MEDS: PANTOPRAZOLE 40 MG INJ IV SCH (15:42)
[2019-05-17] MEDS: cloNIDine 0.1 MG TAB PO SCH ×2 (15:42→21:10)
[2019-05-17 16:15] LABS: BUN/Creatinine Ratio 13; Blood Urea Nitrogen 15 mg/dL (7-17); Calcium 8.4 mg/dL (8.4-10.2); Hemolysis Index 0
[2019-05-17] MEDS: cefTRIAXone/NS 1 GM/50 ML 1 GM/50 ML BAG IV SCH (17:22)
[2019-05-17] MEDS: INSULIN LISPRO 100 UNIT/ML SUB-Q SCH ×2 (17:34→21:23)
[2019-05-18] MEDS: ONDANSETRON 4 MG/2 ML INJ IV PRN ×4 (03:24→22:50)
[2019-05-18] MEDS: MORPHINE 2 MG/1 ML INJ IV PRN ×4 (03:25→22:09)
[2019-05-18 06:27] LABS: Eosinophils % (Auto) 0.6 % (0.0-4.3); Monocytes # (Auto) 0.7 K/mm3 (0.0-0.8); Monocytes % (Auto) 9.6 % (0.0-7.3)
[2019-05-18 06:36] LABS: Calcium 8.6 mg/dL (8.4-10.2)
[2019-05-18 08:32] LABS: Red Blood Count 3.35 M/mm3 (3.65-5.03)
[2019-05-18 08:33] LABS: Basophils % (Auto) 0.6 % (0.0-1.8); Hematocrit 24.3 % (30.3-42.9); Hemoglobin 7.4 gm/dl (10.1-14.3); Lymphocytes # (Auto) 2.2 K/mm3 (1.2-5.4); Lymphocytes % (Auto) 30.3 % (13.4-35.0); Mean Corpuscular HGB Conc 31 % (30-34); Mean Corpuscular Volume 72 fl (79-97); Platelet Count 359 K/mm3 (140-440); Red Cell Distribution Width 21.1 % (13.2-15.2)
[2019-05-18] MEDS: INSULIN LISPRO 100 UNIT/ML SUB-Q SCH ×4 (08:41→22:45)
[2019-05-18] MEDS: PANTOPRAZOLE 40 MG INJ IV SCH (09:20)
[2019-05-18] MEDS: carvediloL 25 MG TAB PO SCH ×2 (09:21→22:10)
[2019-05-18 10:48] LABS: Hematocrit 23.6 % (30.3-42.9); Hemoglobin 7.5 gm/dl (10.1-14.3); Mean Corpuscular HGB Conc 32 % (30-34); Mean Corpuscular Volume 70 fl (79-97); Platelet Count 345 K/mm3 (140-440); Red Blood Count 3.37 M/mm3 (3.65-5.03)
[2019-05-18 10:54] LABS: Red Cell Distribution Width 20.6 % (13.2-15.2)
[2019-05-18 11:10] LABS: Calcium 8.6 mg/dL (8.4-10.2)
[2019-05-18] MEDS: SODIUM CHLORIDE 0.9% 1000 ML 1,000 ML IV SCH (11:55)
[2019-05-18] MEDS: amLODIPine 10 MG TAB PO SCH (11:57)
[2019-05-18] MEDS: cefTRIAXone/NS 1 GM/50 ML 1 GM/50 ML BAG IV SCH (13:03)
--- NOTE | 2019-05-18 16:57 | Progress Note ---
Hospitalist Physical - Constitutional Vitals: Temp Pulse Resp BP Pulse Ox 98.0 F 88 20 121/77 99 05/18/19 11:44 05/18/19 12:00 05/18/19 12:00 05/18/19 11:57 05/18/19 11:44 Results - Labs CBC & Chem 7: 05/18/19 10:26 05/18/19 10:26 Labs: Laboratory Last Values WBC 6.9 K/mm3 (4.5-11.0) 05/18/19 10:26 RBC 3.37 M/mm3 (3.65-5.03) L 05/18/19 10:26 Hgb 7.5 gm/dl (10.1-14.3) L 05/18/19 10:26 Hct 23.6 % (30.3-42.9) L 05/18/19 10:26 MCV 70 fl (79-97) L 05/18/19 10:26 MCH 22 pg (28-32) L 05/18/19 10:26 MCHC 32 % (30-34) 05/18/19 10:26 RDW 20.6 % (13.2-15.2) H 05/18/19 10:26 Plt Count 345 K/mm3 (140-440) 05/18/19 10:26 Lymph % (Auto) 30.3 % (13.4-35.0) 05/18/19 05:56 [place] % (Auto) 9.6 % (0.0-7.3) H 05/18/19 05:56 Eos % (Auto) 0.6 % (0.0-4.3) 05/18/19 05:56 Baso % (Auto) 0.6 % (0.0-1.8) 05/18/19 05:56 Lymph # 2.2 K/mm3 (1.2-5.4) 05/18/19 05:56 [place] # 0.7 K/mm3 (0.0-0.8) 05/18/19 05:56 Eos # 0.0 K/mm3 (0.0-0.4) 05/18/19 05:56 Baso # 0.0 K/mm3 (0.0-0.1) 05/18/19 05:56 Seg Neutrophils % 60.8 % (40.0-70.0) 05/18/19 05:56 Seg Neutrophils # 4.7 K/mm3 (1.8-7.7) 05/18/19 05:56 VBG pH 7.368 (7.320-7.420) 05/17/19 06:43 Sodium 136 mmol/L (137-145) L 05/18/19 10:26 Potassium 3.6 mmol/L (3.6-5.0) 05/18/19 10:26 Chloride 102.6 mmol/L (98-107) 05/18/19 10:26 Carbon Dioxide 19 mmol/L (22-30) L 05/18/19 10:26 Anion Gap 18 mmol/L 05/18/19 10:26 BUN 17 mg/dL (7-17) 05/18/19 10:26 Creatinine 1.6 mg/dL (0.7-1.2) H 05/18/19 10:26 Estimated GFR 44 ml/min 05/18/19 10:26 BUN/Creatinine Ratio 11 % 05/18/19 10:26 Glucose 200 mg/dL (65-100) H 05/18/19 10:26 POC Glucose 179 (70-105) H 05/18/19 11:55 Calcium 8.6 mg/dL (8.4-10.2) 05/18/19 10:26 Total Bilirubin 0.40 mg/dL (0.1-1.2) 05/17/19 04:57 AST 18 units/L (5-40) 05/17/19 04:57 ALT 10 units/L (7-56) 05/17/19 04:57 Alkaline Phosphatase 106 units/L (35-129) 05/17/19 04:57 Total Protein 8.1 g/dL (6.3-8.2) 05/17/19 04:57 Albumin 4.4 g/dL (3.9-5) 05/17/19 04:57 Albumin/Globulin Ratio 1.2 % 05/17/19 04:57 Lipase 3 units/L (13-60) L 05/17/19 04:57 HCG, Qual Negative (Negative) 05/17/19 04:57 Urine Color Yellow (Yellow) 05/17/19 09:45 Urine Turbidity Slightly-cloudy (Clear) 05/17/19 09:45 Urine pH 6.0 (5.0-7.0) 05/17/19 09:45 Ur Specific [place] 1.017 (1.003-1.030) 05/17/19 09:45 Urine Protein 100 mg/dl mg/dL (Negative) 05/17/19 09:45 Urine Glucose (UA) >=500 mg/dL (Negative) 05/17/19 09:45 Urine Ketones Tr mg/dL (Negative) 05/17/19 09:45 Urine Blood Neg (Negative) 05/17/19 09:45 Urine Nitrite Neg (Negative) 05/17/19 09:45 Urine Bilirubin Neg (Negative) 05/17/19 09:45 Urine Urobilinogen < 2.0 mg/dL (<2.0) 05/17/19 09:45 Ur Leukocyte Esterase Neg (Negative) 05/17/19 09:45 Urine WBC (Auto) 42.0 /HPF (0.0-6.0) H 05/17/19 09:45 Urine RBC (Auto) 3.0 /HPF (0.0-6.0) 05/17/19 09:45 U Epithel Cells (Auto) 2.0 /HPF (0-13.0) 05/17/19 09:45 Urine Bacteria (Auto) 1+ /HPF (Negative) 05/17/19 09:45 Urine Mucus Few /HPF 05/17/19 09:45 Active Medications - Current Medications Current Medications: Generic Name Dose Route Start Last Admin Trade Name Freq PRN Reason Stop Dose Admin Acetaminophen 650 mg 05/17/19 12:41 Tylenol PO Q4H PRN Pain MILD(1-3)/Fever >100.5/LEO Amlodipine Besylate 10 mg 05/17/19 11:00 05/18/19 11:57 Amlodipine PO 10 mg QDAY ARTHUR Administration Carvedilol 25 mg 05/17/19 11:00 05/18/19 09:21 Coreg PO 25 mg Q12HR ARTHUR Administration Dextrose 50 ml 05/17/19 12:54 D50w (25gm) Syringe IV Q30MIN PRN Hypoglycemia Protocol Hydralazine HCl 10 mg 05/17/19 12:45 05/17/19 14:29 Apresoline IV 10 mg Q4H PRN Administration SBP>160 or DBP>110 Sodium Chloride 1,000 mls @ 75 mls/hr 02/01/20 12:45 05/18/19 11:55 Nacl 0.9% 1000 Ml IV 75 mls/hr DIRECT ARTHUR Administration Ceftriaxone Sodium 1 gm in 50 mls @ 100 mls/hr 05/17/19 13:00 05/18/19 13:03 Rocephin/Ns 1 Gm/50 Ml IV 100 mls/hr Q24H ARTHUR Administration Protocol Insulin Human Lispro 0 unit 05/17/19 22:00 05/17/19 21:23 Humalog SUB-Q 3 unit QHS ARTHUR Administration Protocol Insulin Human Lispro 0 unit 05/17/19 16:30 05/18/19 12:17 Humalog SUB-Q 2 unit AC ARTHUR Administration Protocol Morphine Sulfate 2 mg 05/17/19 12:41 05/18/19 08:42 Morphine IV 2 mg Q4H PRN Administration Pain, Moderate (4-6) Ondansetron HCl 4 mg 05/17/19 12:41 05/18/19 08:42 Zofran IV 4 mg Q6H PRN Administration Nausea And Vomiting Pantoprazole Sodium 40 mg 05/17/19 15:00 05/18/19 09:20 Protonix IV 40 mg QDAY ARTHUR Administration Sodium Chloride 10 ml 05/17/19 22:00 05/18/19 09:21 Sodium Chloride Flush Syringe 10 Ml IV 10 ml BID ARTHUR Administration Sodium Chloride 10 ml 05/17/19 12:41 Sodium Chloride Flush Syringe 10 Ml IV PRN PRN LINE FLUSH
[2019-05-19] MEDS: MORPHINE 2 MG/1 ML INJ IV PRN (03:59)
[2019-05-19 06:54] LABS: Calcium 8.3 mg/dL (8.4-10.2)
[2019-05-19] MEDS: INSULIN LISPRO 100 UNIT/ML SUB-Q SCH ×3 (08:30→17:00)
--- NOTE | 2019-05-19 10:31 | Gastroenterology Consultation ---
History of Present Illness - Reason for Consult Consult date: 05/19/19 abdominal pain Requesting physician: CJ ASHER - History of Present Illness Patient is a 38 y/o female with PMH of HTN, asthma, DM, and CHF ( cardiomyopathy) who presented to ED yesterday with c/o upper abd pain with N/V. Upon admission, she was found to have elevated BP and was admitted with hypertensive urgency. GI has been consulted N/V. Patient is previously known to our service and is followed by Dr. Majano. She has a hx of chronic abd pain with N/V thought to be correlated with HTN vs gastroparesis and was previously being treated with antiemetics and is s/p PEG/J tube with removal in 2017 w/o improvement in symptoms. Her last EGD was 10/[address] Solis that showed gastritis and PEG/J tube in place but no ulcer or GOO. Most recently, she underwent a GES 01/2019 with normal results and an abd CT last month on 04/22/19 which was negative. This morning patient was resting in bed w/o acute distress. Reports feeling better with symptoms now improving and no episodes of vomiting today. Tolerated clears yesterday. Denies fever, CP, SOB, wt loss, signs of bleeding, or LGI symptoms. S/p CCY. Past History Past Medical History: other (see HPI) Past Surgical History: cholecystectomy, , hysterectomy Social history: single, full code. denies: smoking, alcohol abuse Family history: diabetes Medications and Allergies Allergies Allergy/AdvReac Type Severity Reaction Status Date / Time acetaminophen [From Percocet] Allergy Vomiting Verified 01/15/19 17:09 haloperidol [From Haldol] Allergy Nausea Verified 01/15/19 17:09 oxycodone HCl [From Percocet] Allergy Vomiting Verified 01/15/19 17:09 metoclopramide [From Reglan] AdvReac Shortness Verified 04/25/19 18:51 of Breath Home Medications Medication Instructions Recorded Confirmed Last Taken Type Insulin Glargine [Lantus VIAL] 15 units SUB-Q QHS #1 vial 04/06/19 05/17/19 05/16/19 Rx Insulin Regular, Human [HumuLIN R] 5 units SUB-Q ACHS #2 vial 04/06/19 05/17/19 05/16/19 Rx amLODIPine 5 mg PO QDAY #30 tablet 04/26/19 05/17/19 05/16/19 Rx carvediloL [Coreg] 25 mg PO Q12HR #60 tablet 04/26/19 05/17/19 05/16/19 Rx Active Meds: Active Medications Acetaminophen (Tylenol) 650 mg PO Q4H PRN PRN Reason: Pain MILD(1-3)/Fever >100.5/LEO Amlodipine Besylate (Amlodipine) 10 mg PO QDAY [facility] Last Admin: 05/18/19 11:57 Dose: 10 mg Documented by: Carvedilol (Coreg) 25 mg PO Q12HR [facility] Last Admin: 05/18/19 22:10 Dose: 25 mg Documented by: Dextrose (D50w (25gm) Syringe) 50 ml IV Q30MIN PRN; Protocol PRN Reason: Hypoglycemia Hydralazine HCl (Apresoline) 10 mg IV Q4H PRN PRN Reason: SBP>160 or DBP>110 Last Admin: 05/17/19 14:29 Dose: 10 mg Documented by: Sodium Chloride (Nacl 0.9% 1000 Ml) 1,000 mls @ 75 mls/hr IV DIRECT ARTHUR Last Admin: 05/18/19 11:55 Dose: 75 mls/hr Documented by: Ceftriaxone Sodium (Rocephin/Ns 1 Gm/50 Ml) 1 gm in 50 mls @ 100 mls/hr IV Q24H [facility]; Protocol Last Admin: 05/18/19 13:03 Dose: 100 mls/hr Documented by: Insulin Human [facility] (Humalog) [facility]; Protocol Last Admin: 05/18/19 22:45 Dose: 3 unit Documented by: Insulin Human Lispro (Humalog) 0 unit SUB-Q [facility]; Protocol Last Admin: 05/18/19 17:23 Dose: 2 unit Documented by: Morphine Sulfate (Morphine) 2 mg IV Q4H PRN PRN Reason: Pain, Moderate (4-6) Last Admin: 05/19/19 03:59 Dose: 2 mg Documented by: Ondansetron HCl (Zofran) 4 mg IV Q6H PRN PRN Reason: Nausea And Vomiting Last Admin: 05/18/19 22:50 Dose: 4 mg Documented by: Pantoprazole Sodium (Protonix) 40 mg IV QDAY [facility] Last Admin: 05/18/19 09:20 Dose: 40 mg Documented by: Sodium Chloride (Sodium Chloride Flush Syringe 10 Ml) 10 ml IV BID [facility] Last Admin: 05/18/19 22:10 Dose: 10 ml Documented by: Sodium Chloride (Sodium Chloride Flush Syringe 10 Ml) 10 ml IV PRN PRN PRN Reason: LINE FLUSH medications reviewed/updated as required Review of Systems - Review of Systems All systems: negative Gastrointestinal: abdominal pain (diffuse upper pain), nausea, vomiting Exam - Constitutional Vital Signs: Temp Pulse Resp BP Pulse Ox 99.2 F 88 18 128/73 97 05/19/19 08:48 05/19/19 08:48 05/19/19 08:48 05/19/19 08:48 05/19/19 08:48 General appearance: no acute distress - EENT Eyes: PERRL, EOM intact ENT: hearing intact - Respiratory Respiratory effort: normal - Cardiovascular Rhythm: regular - Gastrointestinal General gastrointestinal: Present: soft, tender (slight), non-distended, normal bowel sounds - Integumentary Integumentary: Present: warm, dry - Neurologic Neurological: alert and oriented x3 - Labs CBC & Chem 7: 05/18/19 10:26 05/19/19 06:13 Lab Results: Laboratory Results - last 24 hr 05/18/19 05/18/19 05/18/19 10:26 10:26 11:55 WBC 6.9 RBC 3.37 L Hgb 7.5 L Hct 23.6 L MCV 70 L MCH 22 L MCHC 32 RDW 20.6 H Plt Count 345 Sodium 136 L Potassium 3.6 Chloride 102.6 Carbon Dioxide 19 L Anion Gap 18 BUN 17 Creatinine 1.6 H Estimated GFR 44 BUN/Creatinine Ratio 11 Glucose 200 H POC Glucose 179 H Calcium 8.6 05/18/19 05/19/19 05/19/19 17:16 00:22 06:13 WBC RBC Hgb Hct MCV MCH MCHC RDW Plt Count Sodium 138 Potassium 4.1 Chloride 104.1 Carbon Dioxide 19 L Anion Gap 19 BUN 15 Creatinine 1.6 H Estimated GFR 44 BUN/Creatinine Ratio 9 Glucose 162 H POC Glucose 153 H 229 H Calcium 8.3 L 05/19/19 08:39 WBC RBC Hgb Hct MCV MCH MCHC RDW Plt Count Sodium Potassium Chloride Carbon Dioxide Anion Gap BUN Creatinine Estimated GFR BUN/Creatinine Ratio Glucose POC Glucose 204 H Calcium Assessment and Plan 1.upper/diffuse abd pain-chronic 2.N/V-chronic -afebrile -wBC WNL -H/H 7.5/23.6- no active signs of bleeding -LFTs and lipase WNL -abd CT 04/22/19 negative -GES 01/2019 normal -last EGD 10/25/17 showed gastritis and PEG/J in place (now removed) but no ulcer or GOO -etiology-patient has a hx of chronic intermittent abd pain with N/V with an extensive prior workup with etiology thought to be correlated to HTN vs gastroparesis vs other (s/p CCY) -Clinically, patient is stable with abd pain and N/V improving. -will schedule for repeat EGD tomorrow for further evaluation -okay for full liquids today then NPO after MN -A1C and UDS -avoid narcotics for this may exacerbate symptoms -optimize glycemic control -continue PPI and supportive care (antiemetics, IVF, etc.) -chronic anemia according to prior labs-consider colonoscopy as outpatient for further evaluation if EGD negative -will follow 3.HTN 4.DM (h/o gastroparesis?) 5.CHF
[2019-05-19] MEDS: amLODIPine 10 MG TAB PO SCH (11:22)
[2019-05-19] MEDS: carvediloL 25 MG TAB PO SCH (11:23)
[2019-05-19] MEDS: PANTOPRAZOLE 40 MG INJ IV SCH (11:23)
--- NOTE | 2019-05-19 13:18 | Discharge Summary ---
Providers - Providers Date of Admission: 05/17/19 09:33 Date of discharge: 05/19/19 Attending physician: CJ ASHER 05/18/19 15:07 Consult to Physician [CONS] Routine Comment: SPOKE WITH [facility] AT [id number] Consulting Provider: CRISTHIAN KEITH Physician Instructions: Reason For Exam: abdominal pain Primary care physician: [employer] Hospitalization Condition: Fair Hospital course: Patient is 38-year-old with diabetes hypertension Disposition: DC- TO HOME OR SELFCARE Exam - Constitutional Vitals: Temp Pulse Resp BP Pulse Ox 99.2 F 85 18 146/90 97 05/19/19 08:48 05/19/19 11:23 05/19/19 12:00 05/19/19 11:23 05/19/19 08:48 Plan Activity: no restrictions Diet: low fat, low cholesterol, low salt, diabetic Plan of Treatment: 1.Follow up with PCP in 1 week 2.Follow up with Dr. Richardson [facility] in 2-3 days to arrange outpatient EGD 3.Check BMP in office of PCP in 1 week 4.Follow up with Dr. Gross, Nephrology in 1 week Follow up with: PRIMARY CARE,MD [Primary Care Provider] - 3-5 Days Prescriptions: cefUROXime [Ceftin] 500 mg PO Q12H 4 Days #16 tablet Pantoprazole [Protonix] 40 mg PO QDAY #30 tablet traMADoL [Ultram 50 MG tab] 50 mg PO Q6HR PRN #10 tablet PRN Reason: Pain Ondansetron (Nf) [Zofran TAB] 8 mg PO Q8HR PRN #10 tablet PRN Reason: Nausea And Vomiting
[2019-05-19] MEDS: cefTRIAXone/NS 1 GM/50 ML 1 GM/50 ML BAG IV SCH (13:41)
[2019-05-19 14:12] VITALS: BP 138/87
== END 2019-05-19 17:46 | disposition home or self-care (01) ==
LOC: ED 04:15 → 3A 09:33 → 4A 10:50
PROVIDERS: ADMIT Internal Medicine; ATTEND Internal Medicine
DX: K29.00 Acute gastritis without bleeding (principal); R00.0 Tachycardia, unspecified; I11.0 Hypertensive heart disease with heart failure; I50.9 Heart failure, unspecified; J45.909 Unspecified asthma, uncomplicated; E11.9 Type 2 diabetes mellitus without complications; Z98.891 History of uterine scar from previous surgery; Z90.710 Acquired absence of both cervix and uterus; Z87.442 Personal history of urinary calculi; Z90.49 Acquired absence of other specified parts of digestive tract
CPT/HCPCS: 36415; 71045; 80048; 80053; 81001; 82805; 82962; 83690; 84703; 85025; 85027; 87076; 87086; 87116; 87186; 96361; 96365; 96366; 96372; 96375; 96376; 99284; C9113; G0378; J0360; J0696; J1200; J2270; J2405; J3010; J7030; Q0169; J1815; Q0162

== ENCOUNTER 2019-06-23 14:29 | Observation (INO) | payer OTHER ==
[2019-06-23] MEDS ORDERED: diphenhydrAMINE 50 MG/ML VIAL IV ONE (15:07)
[2019-06-23] MEDS ORDERED: HYDROmorphone 1 MG/1 ML INJ IV ONE ×2 (15:07→18:43)
[2019-06-23] MEDS ORDERED: ONDANSETRON 4 MG/2 ML INJ IV ONE (15:07)
[2019-06-23] MEDS ORDERED: SODIUM CHLORIDE 0.9% 1000 ML 1,000 ML IV ONE ×4 (15:09→19:19)
--- NOTE | 2019-06-23 15:12 | Emergency Department Report ---
ED Abdominal Pain HPI - General Stated Complaint: ABD PAIN/NAUSEA/VOMITING Time Seen by Provider: 06/23/19 14:50 Source: patient, old records reviewed Mode of arrival: Stretcher Limitations: No Limitations - History of Present Illness Initial Comments: 38-year-old female the past medical history of insulin-dependent diabetes, previous DKA, diabetic gastroparesis, cardiomyopathy/CHF, hypertension, asthma, kidney stones, previous cholecystectomy, PEG tube placement, and surgery presents to the hospital complains of symptoms of DKA. Patient has been compliant with her insulin up until today. Today she developed generalized severe abdominal pain that is constant but fluctuates in intensity with nausea, vomiting, and p.o. intolerance. Patient complains of increased urinary frequency. She has not taking any of her medications today due to her symptoms. No reports of fever. PMD: Fanta Brown Previous medical record reviewed and patient has similar presentations requiring admission approximately 1 time a month. - Related Data Previous Rx's Medication Instructions Recorded Last Taken Type Insulin Glargine [Lantus VIAL] 15 units SUB-Q QHS #1 vial 04/06/19 05/16/19 Rx Insulin Regular, Human [HumuLIN R] 5 units SUB-Q ACHS #2 vial 04/06/19 05/16/19 Rx amLODIPine 5 mg PO QDAY #30 tablet 04/26/19 05/16/19 Rx carvediloL [Coreg] 25 mg PO Q12HR #60 tablet 04/26/19 05/16/19 Rx Ondansetron (Nf) [Zofran TAB] 8 mg PO Q8HR PRN #10 tablet 05/19/19 Unknown Rx Pantoprazole [Protonix] 40 mg PO QDAY #30 tablet 05/19/19 Unknown Rx cefUROXime [Ceftin] 500 mg PO Q12H 4 Days #16 tablet 05/19/19 Unknown Rx traMADoL [Ultram 50 MG tab] 50 mg PO Q6HR PRN #10 tablet 05/19/19 Unknown Rx Allergies Allergy/AdvReac Type Severity Reaction Status Date / Time acetaminophen [From Percocet] Allergy Vomiting Verified 01/15/19 17:09 haloperidol [From Haldol] Allergy Nausea Verified 01/15/19 17:09 oxycodone HCl [From Percocet] Allergy Vomiting Verified 01/15/19 17:09 metoclopramide [From Reglan] AdvReac Shortness Verified 04/25/19 18:51 of Breath ED Review of Systems ROS: Stated complaint: ABD PAIN/NAUSEA/VOMITING Other details as noted in HPI Comment: All other systems reviewed and negative ED Past Medical Hx - Past Medical History Hx Hypertension: Yes 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; cardiomyopathy and CHF) Hx Congestive Heart Failure: Yes Hx Diabetes: Yes Hx Pulmonary Embolism: No Hx Liver Disease: No Hx Renal Disease: No Hx Sickle Cell Disease: No Hx Seizures: No Hx Kidney Stones: Yes Hx Asthma: Yes Hx COPD: No Hx Tuberculosis: No Hx HIV: No - Surgical History Hx Pacemaker: No Hx Internal Defibrillator: No Hx Cholecystectomy: Yes Additional Surgical History: - Social History Smoking Status: Never Smoker - Medications Home Medications: Home Medications Medication Instructions Recorded Confirmed Last Taken Type Insulin Glargine [Lantus VIAL] 15 units SUB-Q QHS #1 vial 04/06/19 05/17/19 05/16/19 Rx Insulin Regular, Human [HumuLIN R] 5 units SUB-Q ACHS #2 vial 04/06/19 05/17/19 05/16/19 Rx amLODIPine 5 mg PO QDAY #30 tablet 04/26/19 05/17/19 05/16/19 Rx carvediloL [Coreg] 25 mg PO Q12HR #60 tablet 04/26/19 05/17/19 05/16/19 Rx Ondansetron (Nf) [Zofran TAB] 8 mg PO Q8HR PRN #10 tablet 05/19/19 Unknown Rx Pantoprazole [Protonix] 40 mg PO QDAY #30 tablet 05/19/19 Unknown Rx cefUROXime [Ceftin] 500 mg PO Q12H 4 Days #16 tablet 05/19/19 Unknown Rx traMADoL [Ultram 50 MG tab] 50 mg PO Q6HR PRN #10 tablet 05/19/19 Unknown Rx ED Physical Exam - Other Other exam information: General: Distress secondary to pain Head: Atraumatic Eyes: normal appearance ENT: Moist mucous membranes Neck: Normal appearance, no midline tenderness Chest: Clear to auscultation bilaterally CV: tachycardic regular rhythm Abdomen: Soft, normal bowel sounds, midline vertical epigastric surgical scar with generalized tenderness, previous PEG tube placement site noted. Back: Normal inspection Extremity: Normal inspection, full range of motion Neuro: Alert O x 3, no facial asymmetry, speech clear, no gross motor sensory deficit Psych: Appropriate behavior Skin: No rash ED Course Vital Signs 06/23/19 06/23/19 06/23/19 15:10 15:29 15:30 Temperature 97.5 F L Pulse Rate 115 H 109 H 106 H Respiratory 38 H 20 Rate Blood Pressure 229/148 219/143 Blood Pressure 209/126 [Left] O2 Sat by Pulse 100 100 Oximetry 06/23/19 06/23/19 06/23/19 16:00 16:58 17:07 Temperature Pulse Rate 104 H 104 H 105 H Respiratory 18 18 Rate Blood Pressure 223/133 Blood Pressure 202/122 215/134 [Left] O2 Sat by Pulse 100 100 Oximetry 06/23/19 06/23/19 17:24 18:44 Temperature Pulse Rate 102 H 104 H Respiratory 11 L Rate Blood Pressure 233/133 Blood Pressure 208/130 [Left] O2 Sat by Pulse 100 Oximetry ED Medical Decision Making - Lab Data Result diagrams: 06/23/19 15:25 06/23/19 15:25 Lab Results 06/23/19 06/23/19 06/23/19 Range/Units 15:19 15:25 15:25 WBC 8.4 (4.5-11.0) K/mm3 RBC 4.47 (3.65-5.03) M/mm3 Hgb 9.7 L (10.1-14.3) gm/dl Hct 31.7 (30.3-42.9) % MCV 71 L (79-97) fl MCH 22 L (28-32) pg MCHC 30 (30-34) % RDW 20.5 H (13.2-15.2) % Plt Count 368 (140-440) K/mm3 Lymph % (Auto) 9.7 L (13.4-35.0) % [place] % (Auto) 3.6 (0.0-7.3) % Eos % (Auto) 0.1 (0.0-4.3) % Baso % (Auto) 0.3 (0.0-1.8) % Lymph # 0.8 L (1.2-5.4) K/mm3 [place] # 0.3 (0.0-0.8) K/mm3 Eos # 0.0 (0.0-0.4) K/mm3 Baso # 0.0 (0.0-0.1) K/mm3 Seg Neutrophils % 86.3 H (40.0-70.0) % Seg Neutrophils # 7.2 (1.8-7.7) K/mm3 VBG pH (7.320-7.420) Sodium 135 L (137-145) mmol/L Potassium 4.2 (3.6-5.0) mmol/L Chloride 97.3 L (98-107) mmol/L Carbon Dioxide 18 L (22-30) mmol/L Anion Gap 24 mmol/L BUN 20 H (7-17) mg/dL Creatinine 1.2 (0.7-1.2) mg/dL Estimated GFR > 60 ml/min BUN/Creatinine Ratio 17 % Glucose 435 H (65-100) mg/dL POC Glucose (70-105) Ketones Quantitative (Negative) Calcium 9.8 (8.4-10.2) mg/dL Total Bilirubin 0.30 (0.1-1.2) mg/dL AST 20 (5-40) units/L ALT 14 (7-56) units/L Alkaline Phosphatase 116 (35-129) units/L Total Protein 9.5 H (6.3-8.2) g/dL Albumin 4.7 (3.9-5) g/dL Albumin/Globulin Ratio 1.0 % Lipase 57 (13-60) units/L HCG, Qual (Negative) Urine Color Straw (Yellow) Urine Turbidity Clear (Clear) Urine pH 7.0 (5.0-7.0) Ur Specific [place] 1.012 (1.003-1.030) Urine Protein <15 mg/dl (Negative) mg/dL Urine Glucose (UA) >=500 (Negative) mg/dL Urine Ketones Neg (Negative) mg/dL Urine Blood Neg (Negative) Urine Nitrite Neg (Negative) Urine Bilirubin Neg (Negative) Urine Urobilinogen < 2.0 (<2.0) mg/dL Ur Leukocyte Esterase Neg (Negative) Urine WBC (Auto) 3.0 (0.0-6.0) /HPF Urine RBC (Auto) 2.0 (0.0-6.0) /HPF U Epithel Cells (Auto) 1.0 (0-13.0) /HPF 06/23/19 06/23/19 06/23/19 Range/Units 15:25 15:25 15:25 WBC (4.5-11.0) K/mm3 RBC (3.65-5.03) M/mm3 Hgb (10.1-14.3) gm/dl Hct (30.3-42.9) % MCV (79-97) fl MCH (28-32) pg MCHC (30-34) % RDW (13.2-15.2) % Plt Count (140-440) K/mm3 Lymph % (Auto) (13.4-35.0) % [place] % (Auto) (0.0-7.3) % Eos % (Auto) (0.0-4.3) % Baso % (Auto) (0.0-1.8) % Lymph # (1.2-5.4) K/mm3 [place] # (0.0-0.8) K/mm3 Eos # (0.0-0.4) K/mm3 Baso # (0.0-0.1) K/mm3 Seg Neutrophils % (40.0-70.0) % Seg Neutrophils # (1.8-7.7) K/mm3 VBG pH 7.339 (7.320-7.420) Sodium (137-145) mmol/L Potassium (3.6-5.0) mmol/L Chloride (98-107) mmol/L Carbon Dioxide (22-30) mmol/L Anion Gap mmol/L BUN (7-17) mg/dL Creatinine (0.7-1.2) mg/dL Estimated GFR ml/min BUN/Creatinine Ratio % Glucose (65-100) mg/dL POC Glucose (70-105) Ketones Quantitative Negative (Negative) Calcium (8.4-10.2) mg/dL Total Bilirubin (0.1-1.2) mg/dL AST (5-40) units/L ALT (7-56) units/L Alkaline Phosphatase (35-129) units/L Total Protein (6.3-8.2) g/dL Albumin (3.9-5) g/dL Albumin/Globulin Ratio % Lipase (13-60) units/L HCG, Qual Negative (Negative) Urine Color (Yellow) Urine Turbidity (Clear) Urine pH (5.0-7.0) Ur Specific [place] (1.003-1.030) Urine Protein (Negative) mg/dL Urine Glucose (UA) (Negative) mg/dL Urine Ketones (Negative) mg/dL Urine Blood (Negative) Urine Nitrite (Negative) Urine Bilirubin (Negative) Urine Urobilinogen (<2.0) mg/dL Ur Leukocyte Esterase (Negative) Urine WBC (Auto) (0.0-6.0) /HPF Urine RBC (Auto) (0.0-6.0) /HPF U Epithel Cells (Auto) (0-13.0) /HPF 06/23/19 06/23/19 06/23/19 Range/Units 15:53 16:36 17:34 WBC (4.5-11.0) K/mm3 RBC (3.65-5.03) M/mm3 Hgb (10.1-14.3) gm/dl Hct (30.3-42.9) % MCV (79-97) fl MCH (28-32) pg MCHC (30-34) % RDW (13.2-15.2) % Plt Count (140-440) K/mm3 Lymph % (Auto) (13.4-35.0) % [place] % (Auto) (0.0-7.3) % Eos % (Auto) (0.0-4.3) % Baso % (Auto) (0.0-1.8) % Lymph # (1.2-5.4) K/mm3 [place] # (0.0-0.8) K/mm3 Eos # (0.0-0.4) K/mm3 Baso # (0.0-0.1) K/mm3 Seg Neutrophils % (40.0-70.0) % Seg Neutrophils # (1.8-7.7) K/mm3 VBG pH (7.320-7.420) Sodium (137-145) mmol/L Potassium (3.6-5.0) mmol/L Chloride (98-107) mmol/L Carbon Dioxide (22-30) mmol/L Anion Gap mmol/L BUN (7-17) mg/dL Creatinine (0.7-1.2) mg/dL Estimated GFR ml/min BUN/Creatinine Ratio % Glucose (65-100) mg/dL POC Glucose 379 H 349 H 277 H (70-105) Ketones Quantitative (Negative) Calcium (8.4-10.2) mg/dL Total Bilirubin (0.1-1.2) mg/dL AST (5-40) units/L ALT (7-56) units/L Alkaline Phosphatase (35-129) units/L Total Protein (6.3-8.2) g/dL Albumin (3.9-5) g/dL Albumin/Globulin Ratio % Lipase (13-60) units/L HCG, Qual (Negative) Urine Color (Yellow) Urine Turbidity (Clear) Urine pH (5.0-7.0) Ur Specific [place] (1.003-1.030) Urine Protein (Negative) mg/dL Urine Glucose (UA) (Negative) mg/dL Urine Ketones (Negative) mg/dL Urine Blood (Negative) Urine Nitrite (Negative) Urine Bilirubin (Negative) Urine Urobilinogen (<2.0) mg/dL Ur Leukocyte Esterase (Negative) Urine WBC (Auto) (0.0-6.0) /HPF Urine RBC (Auto) (0.0-6.0) /HPF U Epithel Cells (Auto) (0-13.0) /HPF /01/03 Range/Units 19:15 WBC (4.5-11.0) K/mm3 RBC (3.65-5.03) M/mm3 Hgb (10.1-14.3) gm/dl Hct (30.3-42.9) % MCV (79-97) fl MCH (28-32) pg MCHC (30-34) % RDW (13.2-15.2) % Plt Count (140-440) K/mm3 Lymph % (Auto) (13.4-35.0) % [place] % (Auto) (0.0-7.3) % Eos % (Auto) (0.0-4.3) % Baso % (Auto) (0.0-1.8) % Lymph # (1.2-5.4) K/mm3 [place] # (0.0-0.8) K/mm3 Eos # (0.0-0.4) K/mm3 Baso # (0.0-0.1) K/mm3 Seg Neutrophils % (40.0-70.0) % Seg Neutrophils # (1.8-7.7) K/mm3 VBG pH (7.320-7.420) Sodium (137-145) mmol/L Potassium (3.6-5.0) mmol/L Chloride (98-107) mmol/L Carbon Dioxide (22-30) mmol/L Anion Gap mmol/L BUN (7-17) mg/dL Creatinine (0.7-1.2) mg/dL Estimated GFR ml/min BUN/Creatinine Ratio % Glucose (65-100) mg/dL POC Glucose 299 H (70-105) Ketones Quantitative (Negative) Calcium (8.4-10.2) mg/dL Total Bilirubin (0.1-1.2) mg/dL AST (5-40) units/L ALT (7-56) units/L Alkaline Phosphatase (35-129) units/L Total Protein (6.3-8.2) g/dL Albumin (3.9-5) g/dL Albumin/Globulin Ratio % Lipase (13-60) units/L HCG, Qual (Negative) Urine Color (Yellow) Urine Turbidity (Clear) Urine pH (5.0-7.0) Ur Specific [place] (1.003-1.030) Urine Protein (Negative) mg/dL Urine Glucose (UA) (Negative) mg/dL Urine Ketones (Negative) mg/dL Urine Blood (Negative) Urine Nitrite (Negative) Urine Bilirubin (Negative) Urine Urobilinogen (<2.0) mg/dL Ur Leukocyte Esterase (Negative) Urine WBC (Auto) (0.0-6.0) /HPF Urine RBC (Auto) (0.0-6.0) /HPF U Epithel Cells (Auto) (0-13.0) /HPF - EKG Data -: EKG Interpreted by Ma EKG shows normal: sinus rhythm Rate: tachycardia (105) - Radiology Data Radiology results: report reviewed CT ABDOMEN AND PELVIS WITH IV CONTRAST INDICATION: MAIN: n,v, abd pain, diabetic 100cc of 300 omnipaque bolus given . COMPARISON: CT 04/22/2019 TECHNIQUE: All CT scans at this facility use dose modulation, automated exposure control, iterative reconstruction or weight based dosing, when appropriate, to reduce radiation dose to as low as reasonably achievable. FINDINGS: Lung Bases: No significant abnormality. Skeletal System: No acute abnormality. ABDOMEN: Liver: No significant abnormality. Gallbladder: Removed. Bile Ducts: Diffuse biliary dilatation is again noted. Common duct measures 1.6 cm on coronal image 50. This may be related to prior cholecystectomy. Pancreas: No significant abnormality. Spleen: No significant abnormality. Adrenals: No significant abnormality. Right Kidney: No significant abnormality. Left Kidney: No significant abnormality. Upper GI tract: Tiny hiatal hernia is again noted. No dilated loops of small bowel. Lymph Nodes: No significant adenopathy. Aorta: No significant abnormality. Additional Findings: Rectus diastases is noted. This is unchanged. PELVIS: Colon: No acute abnormality. Urinary Bladder and Distal Ureters: No significant abnormality. Appendix: No significant abnormality. Lymph Nodes: No significant adenopathy. Additional Findings: Physiologic right ovarian cyst is noted. IMPRESSION: 1. No acute process in the abdomen or pelvis. 2. There is diffuse biliary dilatation, the common duct measures up to 1.6 cm in diameter. Similar findings were noted on multiple priors. This may be due to prior cholecystectomy, correlate clinically. 3. Additional incidental findings as above. - Medical Decision Making Patient presents to the hospital stating that she is in DKA. Patient is hyperglycemic but there is no ketosis or acidosis. Patient required repeated doses of medications for pain relief. Nausea controlled with Zofran at this time. No improvement in blood pressure with IV boluses of labetalol. P.o. clonidine provided prior to disposition and additional insulin and IV fluids ordered. I think that patient will not tolerate discharge since she is unlikely to have controlled pain or controlled nausea and vomiting at home and will be admitted to the hospitalist service for further treatment. CT abdomen pelvis does not show any acute abnormality - Differential Diagnosis Gastroparesis, DKA, UTI, obstruction, intra-abdominal infection Critical Care Time: No Critical care attestation.: If time is entered above; I have spent that time in minutes in the direct care of this critically ill patient, excluding procedure time. ED Disposition Clinical Impression: Gastroparesis, Hyperglycemia, Nausea and vomiting, Hypertensive urgency, Noncompliance with medication regimen, Intractable abdominal pain Disposition: OP ADMIT IP TO THIS HOSP Is pt being admited?: Yes Condition: Stable Time of Disposition: 19:12 (DR Mo/hosp)
[2019-06-23] MEDS ORDERED: INSULIN REGULAR, HUMAN 100 UNITS/1 ML IV ONE ×2 (15:19→19:10)
[2019-06-23 15:30] LABS: Bilirubin,Urine NEG (Negative); Blood,Urine NEG (Negative); Color,Urine Straw (Yellow); Protein,Urine <15 mg/dL mg/dL (Negative); Urobilinogen,Urine < 2.0 mg/dL (<2.0)
[2019-06-23 15:44] LABS: Basophils % (Auto) 0.3 % (0.0-1.8); Eosinophils % (Auto) 0.1 % (0.0-4.3); Hematocrit 31.7 % (30.3-42.9); Hemoglobin 9.7 gm/dl (10.1-14.3); Lymphocytes # (Auto) 0.8 K/mm3 (1.2-5.4); Lymphocytes % (Auto) 9.7 % (13.4-35.0); Mean Corpuscular HGB Conc 30 % (30-34); Mean Corpuscular Volume 71 fl (79-97); Monocytes # (Auto) 0.3 K/mm3 (0.0-0.8); Monocytes % (Auto) 3.6 % (0.0-7.3); Platelet Count 368 K/mm3 (140-440); Red Blood Count 4.47 M/mm3 (3.65-5.03)
[2019-06-23 15:52] LABS: Red Cell Distribution Width 20.5 % (13.2-15.2)
[2019-06-23 16:04] LABS: Alanine Aminotransferase 14 units/L (7-56); Albumin 4.7 g/dL (3.9-5); BUN/Creatinine Ratio 17; Blood Urea Nitrogen 20 mg/dL (7-17); Calcium 9.8 mg/dL (8.4-10.2); Hemolysis Index 0
[2019-06-23] MEDS ORDERED: PANTOPRAZOLE 40 MG INJ IV ONE (16:31)
--- NOTE | 2019-06-23 17:22 | Cat Scan Report ---
CT ABDOMEN AND PELVIS WITH IV CONTRAST INDICATION: MAIN: n,v, abd pain, diabetic 100cc of 300 omnipaque bolus given . COMPARISON: CT 04/22/2019 TECHNIQUE: All CT scans at this facility use dose modulation, automated exposure control, iterative reconstructi on or weight based dosing, when appropriate, to reduce radiation dose to as low as reasonably achieva ble. FINDINGS: Lung Bases: No significant abnormality. Skeletal System: No acute abnormality. ABDOMEN: Liver: No significant abnormality. Gallbladder: Removed. Bile Ducts: Diffuse biliary dilatation is again noted. Common duct measures 1.6 cm on coronal image 5 0. This may be related to prior cholecystectomy. Pancreas: No significant abnormality. Spleen: No significant abnormality. Adrenals: No significant abnormality. Right Kidney: No significant abnormality. Left Kidney: No significant abnormality. Upper GI tract: Tiny hiatal hernia is again noted. No dilated loops of small bowel. Lymph Nodes: No significant adenopathy. Aorta: No significant abnormality. Additional Findings: Rectus diastases is noted. This is unchanged. PELVIS: Colon: No acute abnormality. Urinary Bladder and Distal Ureters: No significant abnormality. Appendix: No significant abnormality. Lymph Nodes: No significant adenopathy. Additional Findings: Physiologic right ovarian cyst is noted. IMPRESSION: 1. No acute process in the abdomen or pelvis. 2. There is diffuse biliary dilatation, the common duct measures up to 1.6 cm in diameter. Similar f indings were noted on multiple priors. This may be due to prior cholecystectomy, correlate clinically . 3. Additional incidental findings as above. Signer Name: Leon Conti MD Signed: 06/23/2019 5:18 PM Workstation Name: [id number]
[2019-06-23] MEDS ORDERED: cloNIDine 0.2 MG TAB PO ONE (18:43)
[2019-06-23] MEDS ORDERED: ACETAMINOPHEN 325 MG TAB PO PRN (19:12)
[2019-06-23] MEDS ORDERED: ONDANSETRON 4 MG/2 ML INJ IV PRN (19:12)
--- NOTE | 2019-06-23 19:17 | History and Physical Report ---
History of Present Illness Chief complaint: My stomach hurts History of present illness: 38 YO Female with DM complicated by Gastroparesis, HTN, SD, Cardiomyopathy presents to ED for evaluation. Pt states that she has experienced abdominal pain over the past 2 days. Pt states that pain is 4-10/10, intermitt ent, associated with nausea, vomiting. Pt states that pain is worsened with palpation, and relieved with rest. EMS notified, and upon arrival the patient was found to be in distress and transported to [facility]. Pt seen and evaluated in ED and found to have Gastroparesis, and Acidosis. Pt admitted to medical floor. Pt treated with IVF resuscitation therapy without significant improvement in symptoms. Pt denies fever, chills, CP, Palpitations, Trauma, Ingestion of food/water from new or different sources. Prior admission on 01/21/13 reviewed. All listed mediation reconciled at time of admission. Prior admission on 05/17/19 reviewed. All listed medication reconciled at time of admission. Past History Past Medical History: diabetes, hypertension, other (see hpi) Past Surgical History: cholecystectomy, Social history: single. denies: smoking, alcohol abuse, prescription drug abuse Family history: diabetes, hypertension Medications and Allergies Allergies Allergy/AdvReac Type Severity Reaction Status Date / Time acetaminophen [From Percocet] Allergy Vomiting Verified 01/15/19 17:09 haloperidol [From Haldol] Allergy Nausea Verified 01/15/19 17:09 oxycodone HCl [From Percocet] Allergy Vomiting Verified 01/15/19 17:09 metoclopramide [From Reglan] AdvReac Shortness Verified 04/25/19 18:51 of Breath Home Medications Medication Instructions Recorded Confirmed Last Taken Type Insulin Glargine [Lantus VIAL] 15 units SUB-Q QHS #1 vial 04/06/19 05/17/19 05/16/19 Rx Insulin Regular, Human [HumuLIN R] 5 units SUB-Q ACHS #2 vial 04/06/19 05/17/19 05/16/19 Rx amLODIPine 5 mg PO QDAY #30 tablet 04/26/19 05/17/19 05/16/19 Rx carvediloL [Coreg] 25 mg PO Q12HR #60 tablet 04/26/19 05/17/19 05/16/19 Rx Ondansetron (Nf) [Zofran TAB] 8 mg PO Q8HR PRN #10 tablet 05/19/19 Unknown Rx Pantoprazole [Protonix] 40 mg PO QDAY #30 tablet 05/19/19 Unknown Rx cefUROXime [Ceftin] 500 mg PO Q12H 4 Days #16 tablet 05/19/19 Unknown Rx traMADoL [Ultram 50 MG tab] 50 mg PO Q6HR PRN #10 tablet 05/19/19 Unknown Rx Active Meds: Active Medications Acetaminophen (Tylenol) 650 mg PO Q4H PRN PRN Reason: Pain MILD(1-3)/Fever >100.5/LEO Sodium Chloride (Nacl 0.9% 1000 Ml) 1,000 mls @ 999 mls/hr IV BOLUS ONE Stop: 06/23/19 20:11 Ondansetron HCl (Zofran) 4 mg IV Q8H PRN PRN Reason: Nausea And Vomiting Sodium Chloride (Sodium Chloride Flush Syringe 10 Ml) 10 ml IV BID ARTHUR Sodium Chloride (Sodium Chloride Flush Syringe 10 Ml) 10 ml IV PRN PRN PRN Reason: LINE FLUSH Review of Systems Constitutional: no weight loss, no fever, no chills Ears, nose, mouth and throat: no ear pain, no ear discharge, no tinnitis, no decreased hearing, no nose pain Breasts: no change in shape, no swelling, no mass Cardiovascular: no chest pain, no orthopnea, no rapid/irregular heart beat Respiratory: no cough, no cough with sputum, no hemoptysis Gastrointestinal: nausea, vomiting Genitourinary Female: no dysmenorrhea, no pelvic pain, no flank pain, no menorr hagia, no dysuria, no urinary frequency Menstruation: no currently menstrual, no post hysterectomy, no ammenorrhea on BC, no period normal Rectal: no pain, no incontinence, no bleeding Musculoskeletal: no neck stiffness, no neck pain, no arm numbness/tingling, no low back pain, no shooting leg pain Integumentary: no rash, no pruritis, no redness, no sores, no jaundice Neurological: no transient paralysis, no paralysis, no weakness, no numbness, no syncope Psychiatric: no anxiety, no memory loss, no change in sleep habits, no hypersomnia Endocrine: cold intolerance, excessive thirst, polydipsia, polyuria, no polyphagia, no nocturia Hematologic/Lymphatic: no easy bruising, no easy bleeding, no lymphadenopathy Allergic/Immunologic: no urticaria, no allergic rhinitis, no persistent infections, no anaphylaxis, no angioedema Exam - Constitutional Vitals: Temp Pulse Resp BP Pulse Ox 97.5 F L 104 H 11 L 233/133 100 06/23/19 15:10 06/23/19 18:44 06/23/19 17:24 06/23/19 18:44 06/23/19 17:24 General appearance: Present: mild distress - EENT Eyes: Present: PERRL ENT: hearing intact, clear oral mucosa - Neck Neck: Present: supple, normal ROM - Respiratory Respiratory effort: normal Respiratory: bilateral: CTA - Cardiovascular Heart Sounds: Present: S1 & S2. Absent: rub, click - Extremities Extremities: pulses symmetrical, No edema Peripheral Pulses: within normal limits - Abdominal General gastrointestinal: Present: soft, non-tender, non-distended, normal bowel sounds Female genitourinary: Present: normal - Integumentary Integumentary: Present: clear, warm, dry - Musculoskeletal Musculoskeletal: gait normal, strength equal bilaterally - Psychiatric Psychiatric: appropriate mood/affect, intact judgment & insight - Neurologic Neurologic: CNII-XII intact, moves all extremities Results - Labs CBC & Chem 7: 06/23/19 15:25 06/23/19 15:25 Labs: Abnormal lab results 06/23/19 06/23/19 06/23/19 Range/Units 15:25 15:25 15:53 Hgb 9.7 L (10.1-14.3) gm/dl MCV 71 L (79-97) fl MCH 22 L (28-32) pg RDW 20.5 H (13.2-15.2) % Lymph % (Auto) 9.7 L (13.4-35.0) % Lymph # 0.8 L (1.2-5.4) K/mm3 Seg Neutrophils % 86.3 H (40.0-70.0) % Sodium 135 L (137-145) mmol/L Chloride 97.3 L (98-107) mmol/L Carbon Dioxide 18 L (22-30) mmol/L BUN 20 H (7-17) mg/dL Glucose 435 H (65-100) mg/dL POC Glucose 379 H (70-105) Total Protein 9.5 H (6.3-8.2) g/dL 06/23/19 06/23/19 06/23/19 Range/Units 16:36 17:34 19:15 Hgb (10.1-14.3) gm/dl MCV (79-97) fl MCH (28-32) pg RDW (13.2-15.2) % Lymph % (Auto) (13.4-35.0) % Lymph # (1.2-5.4) K/mm3 Seg Neutrophils % (40.0-70.0) % Sodium (137-145) mmol/L Chloride (98-107) mmol/L Carbon Dioxide (22-30) mmol/L BUN (7-17) mg/dL Glucose (65-100) mg/dL POC Glucose 349 H 277 H 299 H (70-105) Total Protein (6.3-8.2) g/dL Assessment and Plan - Patient Problems (1) Hypertensive urgency Current Visit: Yes Status: Acute Plan to address problem: IV hydralazine as needed for systolic blood pressure greater than 155, resume home antihypertensive therapy, monitor blood pressure every shift. (2) Gastroparesis Current Visit: Yes Status: Acute Plan to address problem: CT scan abdomen and pelvis, CBC, CMP, IV fluid resuscitation therapy, bowel rest, antiemetic therapy, early ambulation, supportive care. Zofran PRN. (3) Hyperglycemia Current Visit: Yes Status: Acute Plan to address problem: Sliding scale insulin therapy, Accu-Chek, hypoglycemia protocol (4) Intractable nausea and vomiting Current Visit: Yes Status: Acute Plan to address problem: IV fluid resuscitation therapy, bowel rest, antiemetic therapy, supportive care. (5) DVT prophylaxis Current Visit: Yes Status: Acute Plan to address problem: SCD to bilateral lower extremities while in bed, patient is ambulatory.
[2019-06-23] MEDS ORDERED: DEXTROSE 50% IN WATER (25GM) 50 ML SYRINGE IV PRN (19:18)
[2019-06-23] MEDS ORDERED: METOCLOPRAMIDE 10 MG/2 ML INJ IV ONE (19:20)
[2019-06-23] MEDS ORDERED: SODIUM BICARB 8.4% 50 MEQ/50 ML SYRINGE IV ONE (19:21)
[2019-06-23] MEDS ORDERED: hydrALAZINE 20 MG/1 ML INJ IV PRN (19:22)
[2019-06-23] MEDS ORDERED: traMADol 50 MG TAB PO PRN (19:23)
[2019-06-23] MEDS ORDERED: amLODIPine 5 MG TAB PO SCH (20:17)
[2019-06-23] MEDS: cloNIDine 0.2 MG TAB PO SCH ×2 (20:20→21:59)
[2019-06-23] MEDS ORDERED: cloNIDine 0.2 MG TAB ONE (20:21)
[2019-06-23 21:01] LABS: Amphetamine Screen,Urine PRESUMPTIVE NEGATIVE; Benzodiazepines Screen,Urine PRESUMPTIVE NEGATIVE; Cocaine Screen,Urine PRESUMPTIVE NEGATIVE; Methadone Screen,Urine PRESUMPTIVE NEGATIVE; Opiate Screen,Urine PRESUMPTIVE NEGATIVE
[2019-06-23 21:12] LABS: Cannabinoid Screen,Urine PRESUMPTIVE POSITIVE
[2019-06-23] MEDS ORDERED: carvediloL 25 MG TAB ONE (21:21)
[2019-06-23] MEDS ORDERED: amLODIPine 5 MG TAB ONE (21:22)
[2019-06-23] MEDS: carvediloL 25 MG TAB PO SCH (21:33)
[2019-06-23] MEDS: amLODIPine 5 MG TAB PO SCH (21:35)
[2019-06-23] MEDS ORDERED: carvediloL 25 MG TAB PO SCH (22:00)
[2019-06-24] MEDS: INSULIN REGULAR, HUMAN 100 UNITS/1 ML SUB-Q SCH ×4 (00:16→18:04)
[2019-06-24] MEDS ORDERED: amLODIPine 5 MG TAB PO SCH (10:00)
[2019-06-24] MEDS ORDERED: PANTOPRAZOLE 40 MG TAB PO SCH (10:00)
[2019-06-24] MEDS: amLODIPine 5 MG TAB PO SCH (10:56)
[2019-06-24] MEDS: carvediloL 25 MG TAB PO SCH (10:56)
[2019-06-24] MEDS: cloNIDine 0.2 MG TAB PO SCH (10:57)
--- NOTE | 2019-06-24 11:27 | Gastroenterology Consultation ---
History of Present Illness - Reason for Consult Consult date: 06/24/19 N/V, bloody emesis, gastroparesis Requesting physician: LACEY WHITE - History of Present Illness Patient is a 38 y/o female with PMH of HTN, asthma, kidney stones, previous cholecystectomy, CHF ( cardiomyopathy), and DM with likely gastroparesis (s/p PEG/J with removal in 2017) who presented to ED with c/o recurrent generalized abdominal pain with N/V to which GI has been consulted, along with reports of bloody emesis yesterday. Abd CT upon admission w/o acute process. Patient is previously known to our service with last hospital consult for similar symptoms just last month on 05/19/2019. She is followed by Dr. Majano and has undergone an extensive prior workup for chronic abd pain with N/V to include multiple CTs, s/p CCY, EGDs (last 10/[address] Solis that showed gastritis but no ulcer or GOO), and GES 01/2019 with etiology thought to be 2/2 gastroparesis vs correlated to HTN. She was previously treated with antiemetics and is s/p PEG/J tube with removal in 2018 w/o improvement in symptoms. This morning patient was resting in bed w/o acute distress. Reports feeling better with symptoms now improving. No episodes of vomiting or active signs of bleeding today. Denies fever, CP, SOB, melena, diarrhea, constipation, hematochezia. Of note, urine drug screen positive for marijuana. Past History Past Medical History: other (see hpi) Past Surgical History: cholecystectomy, Social history: single, other (marijuana). denies: smoking, alcohol abuse, prescription drug abuse Family history: diabetes, hypertension Medications and Allergies Allergies Allergy/AdvReac Type Severity Reaction Status Date / Time acetaminophen [From Percocet] Allergy Vomiting Verified 01/15/19 17:09 haloperidol [From Haldol] Allergy Nausea Verified 01/15/19 17:09 oxycodone HCl [From Percocet] Allergy Vomiting Verified 01/15/19 17:09 metoclopramide [From Reglan] AdvReac Shortness Verified 04/25/19 18:51 of Breath Home Medications Medication Instructions Recorded Confirmed Last Taken Type Insulin Glargine [Lantus VIAL] 15 units SUB-Q QHS #1 vial 04/06/19 05/17/19 05/16/19 Rx Insulin Regular, Human [HumuLIN R] 5 units SUB-Q ACHS #2 vial 04/06/19 05/17/19 05/16/19 Rx amLODIPine 5 mg PO QDAY #30 tablet 04/26/19 05/17/19 05/16/19 Rx carvediloL [Coreg] 25 mg PO Q12HR #60 tablet 04/26/19 05/17/19 05/16/19 Rx Ondansetron (Nf) [Zofran TAB] 8 mg PO Q8HR PRN #10 tablet 05/19/19 Unknown Rx Pantoprazole [Protonix] 40 mg PO QDAY #30 tablet 05/19/19 Unknown Rx cefUROXime [Ceftin] 500 mg PO Q12H 4 Days #16 tablet 05/19/19 Unknown Rx traMADoL [Ultram 50 MG tab] 50 mg PO Q6HR PRN #10 tablet 05/19/19 Unknown Rx Active Meds: Active Medications Acetaminophen (Tylenol) 650 mg PO Q4H PRN PRN Reason: Pain MILD(1-3)/Fever >100.5/LEO Amlodipine Besylate (Amlodipine) 5 mg PO QDAY [facility] Last Admin: 06/24/19 10:56 Dose: 5 mg Documented by: Carvedilol (Coreg) 25 mg PO Q12HR [facility] Last Admin: 06/24/19 10:56 Dose: 25 mg Documented by: Clonidine HCl (Catapres) 0.2 mg PO Q12HR [facility] Last Admin: 06/24/19 10:57 Dose: Not Given Documented by: Dextrose (D50w (25gm) Syringe) 50 ml IV Q30MIN PRN; Protocol PRN Reason: Hypoglycemia Hydralazine HCl (Apresoline) 10 mg IV Q4HR PRN PRN Reason: Hypertension Insulin Human Regular (Humulin R) 0 units SUB-Q Q6HR [facility]; Protocol Last Admin: 06/24/19 08:08 Dose: Not Given Documented by: Ondansetron HCl (Zofran) 4 mg IV Q8H PRN PRN Reason: Nausea And Vomiting Pantoprazole Sodium (Protonix) 40 mg PO QDAY [facility] Last Admin: 06/24/19 10:55 Dose: 40 mg Documented by: Sodium Chloride (Sodium Chloride Flush Syringe 10 Ml) 10 ml IV BID [facility] Last Admin: 06/24/19 10:58 Dose: 10 ml Documented by: Sodium Chloride (Sodium Chloride Flush Syringe 10 Ml) 10 ml IV PRN PRN PRN Reason: LINE FLUSH Tramadol HCl (Ultram) 50 mg PO Q6HR PRN PRN Reason: Pain, Moderate (4-6) medications reviewed/updated as required Review of Systems - Review of Systems All systems: negative Gastrointestinal: abdominal pain (generalized), nausea, vomiting, other (bloody emesis) Exam - Constitutional Vital Signs: Temp Pulse Resp BP Pulse Ox 97.8 F 87 18 113/59 100 06/24/19 04:12 06/24/19 10:57 06/24/19 04:12 06/24/19 10:57 06/24/19 08:17 General appearance: no acute distress - EENT Eyes: PERRL, EOM intact ENT: hearing intact - Respiratory Respiratory effort: normal - Cardiovascular Rhythm: regular - Gastrointestinal General gastrointestinal: Present: soft, tender (slight), non-distended, normal bowel sounds - Integumentary Integumentary: Present: warm, dry - Neurologic Neurological: alert and oriented x3 - Labs CBC & Chem 7: 06/23/19 15:25 06/23/19 15:25 Lab Results: Laboratory Results - last 24 hr 06/23/19 06/23/19 06/23/19 15:19 15:25 15:25 WBC 8.4 RBC 4.47 Hgb 9.7 L Hct 31.7 MCV 71 L MCH 22 L MCHC 30 RDW 20.5 H Plt Count 368 Lymph % (Auto) 9.7 L [place] % (Auto) 3.6 Eos % (Auto) 0.1 Baso % (Auto) 0.3 Lymph # 0.8 L [place]ck[place] # 0.3 Eos # 0.0 Baso # 0.0 Seg Neutrophils % 86.3 H Seg Neutrophils # 7.2 VBG pH Sodium 135 L Potassium 4.2 Chloride 97.3 L Carbon Dioxide 18 L Anion Gap 24 BUN 20 H Creatinine 1.2 Estimated GFR > 60 BUN/Creatinine Ratio 17 Glucose 435 H POC Glucose Ketones Quantitative Calcium 9.8 Total Bilirubin 0.30 AST 20 ALT 14 Alkaline Phosphatase 116 Total Protein 9.5 H Albumin 4.7 Albumin/Globulin Ratio 1.0 Lipase 57 HCG, Qual Urine Color Straw Urine Turbidity Clear Urine pH 7.0 Ur Specific [place] 1.012 Urine Protein <15 mg/dl Urine Glucose (UA) >=500 Urine Ketones Neg Urine Blood Neg Urine Nitrite Neg Urine Bilirubin Neg Urine Urobilinogen < 2.0 Ur Leukocyte Esterase Neg Urine WBC (Auto) 3.0 Urine RBC (Auto) 2.0 U Epithel Cells (Auto) 1.0 Urine Opiates Screen Urine Methadone Screen Ur Barbiturates Screen Ur Phencyclidine Scrn Ur Amphetamines Screen U Benzodiazepines Scrn Urine Cocaine Screen U Marijuana (THC) Screen Drugs of Abuse Note 06/23/19 06/23/19 06/23/19 15:25 15:25 15:25 WBC RBC Hgb Hct MCV MCH MCHC RDW Plt Count Lymph % (Auto) [place] % (Auto) Eos % (Auto) Baso % (Auto) Lymph # [place] # Eos # Baso # Seg Neutrophils % Seg Neutrophils # VBG pH 7.339 Sodium Potassium Chloride Carbon Dioxide Anion Gap BUN Creatinine Estimated GFR BUN/Creatinine Ratio Glucose POC Glucose Ketones Quantitative Negative Calcium Total Bilirubin AST ALT Alkaline Phosphatase Total Protein Albumin Albumin/Globulin Ratio Lipase HCG, Qual Negative Urine Color Urine Turbidity Urine pH Ur Specific [place] Urine Protein Urine Glucose (UA) Urine Ketones Urine Blood Urine Nitrite Urine Bilirubin Urine Urobilinogen Ur Leukocyte Esterase Urine WBC (Auto) Urine RBC (Auto) U Epithel Cells (Auto) Urine Opiates Screen Urine Methadone Screen Ur Barbiturates Screen Ur Phencyclidine Scrn Ur Amphetamines Screen U Benzodiazepines Scrn Urine Cocaine Screen U Marijuana (THC) Screen Drugs of Abuse Note 06/23/19 06/23/19 06/23/19 15:53 16:36 17:34 WBC RBC Hgb Hct MCV MCH MCHC RDW Plt Count Lymph % (Auto) [place] % (Auto) Eos % (Auto) Baso % (Auto) Lymph # [place] # Eos # Baso # Seg Neutrophils % Seg Neutrophils # VBG pH Sodium Potassium Chloride Carbon Dioxide Anion Gap BUN Creatinine Estimated GFR BUN/Creatinine Ratio Glucose POC Glucose 379 H 349 H 277 H Ketones Quantitative Calcium Total Bilirubin AST ALT Alkaline Phosphatase Total Protein Albumin Albumin/Globulin Ratio Lipase HCG, Qual Urine Color Urine Turbidity Urine pH Ur Specific [place] Urine Protein Urine Glucose (UA) Urine Ketones Urine Blood Urine Nitrite Urine Bilirubin Urine Urobilinogen Ur Leukocyte Esterase Urine WBC (Auto) Urine RBC (Auto) U Epithel Cells (Auto) Urine Opiates Screen Urine Methadone Screen Ur Barbiturates Screen Ur Phencyclidine Scrn Ur Amphetamines Screen U Benzodiazepines Scrn Urine Cocaine Screen U Marijuana (THC) Screen Drugs of Abuse Note 06/23/19 06/23/19 06/23/19 19:15 20:29 22:29 WBC RBC Hgb Hct MCV MCH MCHC RDW Plt Count Lymph % (Auto) [place] % (Auto) Eos % (Auto) Baso % (Auto) Lymph # [place] # Eos # Baso # Seg Neutrophils % Seg Neutrophils # VBG pH Sodium Potassium Chloride Carbon Dioxide Anion Gap BUN Creatinine Estimated GFR BUN/Creatinine Ratio Glucose POC Glucose 299 H 357 H Ketones Quantitative Calcium Total Bilirubin AST ALT Alkaline Phosphatase Total Protein Albumin Albumin/Globulin Ratio Lipase HCG, Qual Urine Color Urine Turbidity Urine pH Ur Specific [place] Urine Protein Urine Glucose (UA) Urine Ketones Urine Blood Urine Nitrite Urine Bilirubin Urine Urobilinogen Ur Leukocyte Esterase Urine WBC (Auto) Urine RBC (Auto) U Epithel Cells (Auto) Urine Opiates Screen Presumptive negative Urine Methadone Screen Presumptive negative Ur Barbiturates Screen Presumptive negative Ur Phencyclidine Scrn Presumptive negative Ur Amphetamines Screen Presumptive negative U Benzodiazepines Scrn Presumptive negative Urine Cocaine Screen Presumptive negative U Marijuana (THC) Screen Presumptive positive Drugs of Abuse Note Disclamer 06/24/19 06:07 WBC RBC Hgb Hct MCV MCH MCHC RDW Plt Count Lymph % (Auto) [place] % (Auto) Eos % (Auto) Baso % (Auto) Lymph # [place] # Eos # Baso # Seg Neutrophils % Seg Neutrophils # VBG pH Sodium Potassium Chloride Carbon Dioxide Anion Gap BUN Creatinine Estimated GFR BUN/Creatinine Ratio Glucose POC Glucose 89 Ketones Quantitative Calcium Total Bilirubin AST ALT Alkaline Phosphatase Total Protein Albumin Albumin/Globulin Ratio Lipase HCG, Qual Urine Color Urine Turbidity Urine pH Ur Specific [place] Urine Protein Urine Glucose (UA) Urine Ketones Urine Blood Urine Nitrite Urine Bilirubin Urine Urobilinogen Ur Leukocyte Esterase Urine WBC (Auto) Urine RBC (Auto) U Epithel Cells (Auto) Urine Opiates Screen Urine Methadone Screen Ur Barbiturates Screen Ur Phencyclidine Scrn Ur Amphetamines Screen U Benzodiazepines Scrn Urine Cocaine Screen U Marijuana (THC) Screen Drugs of Abuse Note Assessment and Plan 1.diffuse abd pain-chronic 2.N/V-chronic 3.bloody emesis-given history likely M-W tear vs esophagitis 4.anemia-chronic (consider colonoscopy as outpatient for further evaluation) -afebrile -wBC WNL -H/H 9.7/31.7-improved compared to previous labs; no active/overt signs of bleed ing; HD stable -LFTs and lipase WNL -abd CT w/o acute process -GES 01/2019 normal -EGD 10/25/17 showed gastritis and PEG/J in place (now removed) but no ulcer or GOO -etiology-patient has a hx of chronic intermittent abd pain with N/V with an extensive prior workup (see HPI) with etiology thought to be correlated to HTN vs gastroparesis vs other (UDS +marijuana); s/p CCY -Clinically, patient is stable with symptoms now improved. -no plan for repeat scope at this time, unless overt bleeding develops -advance diet as tolerated -avoid narcotics for this may exacerbate symptoms -optimize glycemic control -substance (marijuana) cessation discussed/encouraged with patient -continue PPI and supportive care (antiemetics) -once tolerating PO, okay to be d/c per GI standpoint with f/u in clinic for further management -will sign off, please call if needed 5.HTN 6.DM 7.CHF
--- NOTE | 2019-06-24 15:32 | Discharge Summary ---
Providers - Providers Date of Admission: 06/23/19 19:12 Date of discharge: 06/24/19 Attending physician: LACEY WHITE 06/24/19 09:08 Consult to Physician [CONS] Routine Comment: Consulting Provider: BOLIVAR MOLINA Physician Instructions: Reason For Exam: throwing up blood, gastroparesis? Primary care physician: APPLICATION SUPPORT CONSULTANT Hospitalization Condition: Stable Hospital course: Patient is a 38 y/o woman with a history of HTN, asthma, kidney stones, previous cholecystectomy, CHF ( cardiomyopathy) and DM with likely gastroparesis (s/p PEG/J with removal in 2017) who presented to ED with c/o recurrent generalized abdominal pain with N/V. She was found to have uncontrolled Bp of 233/133 hr 104. She was treated with IV labetalol. Also, she complained of bloody emeiss to which GI has been consulted. Abd CT upon admission w/o acute process. Patient is previously known to our service with last hospital consult for similar symptoms just last month on 05/19/2019. She is followed by Dr. Majano and has undergone an extensive prior workup for chronic abd pain with N/V to include multiple CTs, s/p CCY, EGDs (last 10/[address] Solis that showed gastritis but no ulcer or GOO), and GES 01/2019 with etiology thought to be 2/2 gastroparesis vs correlated to HTN. She was previously treated with antiemetics and is s/p PEG/J tube with removal in 2018 w/o improvement in symptoms. This morning patient was resting in bed w/o acute distress. Reports feeling better with symptoms now improving. No episodes of vomiting or active signs of bleeding today. Denies fever, CP, SOB, melena, diarrhea, constipation, hematochezia. Of note, urine drug screen positive for marijuana. She is not compliant with gastroparesis diet. We spoke at length at restrictive foods and nathanael supplements. She voiced U&A. Discharge Diagnoses: (1) Hypertensive urgency Current Visit: Yes Status: Acute Plan to address problem: IV hydralazine as needed for systolic blood pressure greater than 155, resume home antihypertensive therapy, monitor blood pressure every shift. (2) Gastroparesis flare Current Visit: Yes Status: Acute Plan to address problem: CT scan abdomen and pelvis, CBC, CMP, IV fluid resuscitation therapy, bowel rest, antiemetic therapy, early ambulation, supportive care. Zofran PRN. (3) Hyperglycemia Current Visit: Yes Status: Acute Plan to address problem: Sliding scale insulin therapy, Accu-Chek, hypoglycemia protocol (4) Intractable nausea and vomiting related to gastroparesis and marijuana use, counseling done Current Visit: Yes Status: Acute Plan to address problem: IV fluid resuscitation therapy, bowel rest, antiemetic therapy, supportive care. (5) DVT prophylaxis Current Visit: Yes Status: Acute Plan to address problem: SCD to bilateral lower extremities while in bed, patient is ambulatory. Disposition: DC-01 TO HOME OR SELFCARE Time spent for discharge: 31 minutes Core Measure Documentation - Palliative Care Palliative Care/ Comfort Measures: Not Applicable - Core Measures Any of the following diagnoses?: none - VTE Discharge Requirements Deep Vein Thrombosis/Pulmonary Embolism Present on Admission: No Has pt received <5 days of overlap therapy or INR<2.0: No Anticoagulant overlap therapy prescribed at discharge: No Contraindication No Overlap Therapy order at DC: Not Indicated Exam - Physical Exam Narrative exam: Gen: WDWN, NAD, Awake, Alert, Orientated HEENT: NCAT, EOMI, PERRL, OP Clear Neck: supple, no adenopathy, no thyromegaly, no JVD CVS/Heart: RRR, normal S1S2, pulses present bilaterally Chest/Lungs: CTA B, Symmetrical chest expansion, good air entry bilaterally GI/Abdomen: soft, NTND, good bowel sounds, no guarding or rebound /Bladder: no suprapubic tenderness, no CVA or paraspinal tenderness Extermity/Skin: no c/c/e, no obvious rash MSK: FROM x 4 Neuro: CN 2-12 grossly intact, no new focal deficits Psych: calm - Constitutional Vitals: Temp Pulse Resp BP Pulse Ox 97.8 F 90 16 142/90 100 06/24/19 04:12 06/24/19 11:41 06/24/19 11:41 06/24/19 11:41 06/24/19 11:41 Plan Activity: other (no strenous activity unless cleared by PCP) Diet: diabetic, other (no breads, muffin, broccoli, cauliflower, cake, rolls, cornbread. Chop meats up into fine pieces. Diet Nathanael arely with each meal) Special Instructions: record blood sugar diary (three times a day, every eight hours), smoking cessation Follow up with: MAINE RODRÍGUEZ MD [Staff Physician] - 7 Days BOLIVAR MOLINA MD [Staff Physician] - 7 Days Prescriptions: Insulin Glargine [Lantus VIAL] 15 units SUB-Q QHS #1 vial cloNIDine [Catapres] 0.2 mg PO Q12HR #60 tablet Insulin Regular, Human [HumuLIN R] 5 units SUB-Q ACHS #2 vial traMADoL [Ultram 50 MG tab] 50 mg PO Q6HR PRN #20 tablet PRN Reason: Pain , Severe (7-10) Ondansetron (Nf) [Zofran TAB] 8 mg PO Q8HR PRN #10 tablet PRN Reason: Nausea And Vomiting
[2019-06-24 17:17] VITALS: BP 147/95
== END 2019-06-24 21:52 | disposition home or self-care (01) ==
LOC: ED 14:29 → 3A 19:12
PROVIDERS: ADMIT Internal Medicine; ATTEND Internal Medicine
DX: I16.0 Hypertensive urgency (principal); K31.84 Gastroparesis; E11.65 Type 2 diabetes mellitus with hyperglycemia; R11.2 Nausea with vomiting, unspecified; I25.2 Old myocardial infarction; I11.0 Hypertensive heart disease with heart failure; I50.9 Heart failure, unspecified; J45.909 Unspecified asthma, uncomplicated; Z90.49 Acquired absence of other specified parts of digestive tract; Z98.891 History of uterine scar from previous surgery; Z79.4 Long term (current) use of insulin; Z87.442 Personal history of urinary calculi
CPT/HCPCS: 36415; 74177; 80053; 80307; 81001; 82010; 82805; 82962; 83690; 84703; 85025; 93005; 93010; 96361; 96372; 96374; 96375; 96376; 99285; C9113; G0378; J1170; J1200; J2405; J7030; Q9967; J1815

== ENCOUNTER 2019-07-25 22:24 | Observation (INO) | payer OTHER ==
[2019-07-25] MEDS ORDERED: HYDROcodone/ACETAMINOPHEN 7.5-325MG TAB ONE (22:35)
[2019-07-25] MEDS ORDERED: ONDANSETRON 4 MG/2 ML INJ IV ONE (23:11)
[2019-07-25] MEDS ORDERED: MORPHINE 4 MG/1 ML INJ IV ONE (23:11)
--- NOTE | 2019-07-25 23:14 | Emergency Department Report ---
ED Abdominal Pain HPI - General Chief Complaint: Abdominal Pain Stated Complaint: ABD PAIN/CP Time Seen by Provider: 07/25/19 23:08 Source: EMS Mode of arrival: Stretcher Limitations: No Limitations - History of Present Illness Initial Comments: Chief complaint: "It feels like diabetic ketoacidosis." HPI: This is a a 38-year-old female with history of insulin-dependent diabetes, hypertension asthma, kidney stones who presents with generalized abdominal pain nausea vomiting since this morning. She has generalized severe abdominal pain without radiation. 10 out of 10 in severity. According to electronic medical record patient has had multiple EGDs. Patient presumed to have gastroparesis on previous occasion. She had history of PEG and J-tube in years past. MD Complaint: abdominal pain -: Gradual, days(s) (1) Location: diffuse Severity scale (0 -10): 10 Quality: cramping Consistency: constant Improves With: nothing Worsens With: nothing Associated Symptoms: nausea, vomiting - Related Data Previous Rx's Medication Instructions Recorded Last Taken Type amLODIPine 5 mg PO QDAY #30 tablet 04/26/19 05/16/19 Rx carvediloL [Coreg] 25 mg PO Q12HR #60 tablet 04/26/19 05/16/19 Rx Pantoprazole [Protonix TAB] 40 mg PO QDAY #30 tablet 05/19/19 Unknown Rx Insulin Glargine [Lantus VIAL] 15 units SUB-Q QHS #1 vial 06/24/19 Unknown Rx Insulin Regular, Human [HumuLIN R] 5 units SUB-Q ACHS #2 vial 06/24/19 Unknown Rx Ondansetron (Nf) [Zofran TAB] 8 mg PO Q8HR PRN #10 tablet 06/24/19 Unknown Rx cloNIDine [Catapres] 0.2 mg PO Q12HR #60 tablet 06/24/19 Unknown Rx traMADoL [Ultram 50 MG tab] 50 mg PO Q6HR PRN #20 tablet 06/24/19 Unknown Rx Allergies Allergy/AdvReac Type Severity Reaction Status Date / Time acetaminophen [From Percocet] Allergy Vomiting Verified 01/15/19 17:09 haloperidol [From Haldol] Allergy Nausea Verified 01/15/19 17:09 oxycodone HCl [From Percocet] Allergy Vomiting Verified 01/15/19 17:09 metoclopramide [From Reglan] AdvReac Shortness Verified 04/25/19 18:51 of Breath ED Review of Systems ROS: Stated complaint: ABD PAIN/CP Other details as noted in HPI Comment: All other systems reviewed and negative Constitutional: denies: fever, malaise Respiratory: denies: cough Cardiovascular: denies: chest pain Gastrointestinal: abdominal pain, nausea, vomiting ED Past Medical Hx - Past Medical History Previous Medical History?: Yes Hx Hypertension: Yes 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; cardiomyopathy and CHF) Hx Congestive Heart Failure: Yes Hx Diabetes: Yes Hx Pulmonary Embolism: No Hx Liver Disease: No Hx Renal Disease: No Hx Sickle Cell Disease: No Hx Seizures: No Hx Kidney Stones: Yes Hx Asthma: Yes Hx COPD: No Hx Tuberculosis: No Hx HIV: No - Surgical History Past Surgical History?: Yes Hx Pacemaker: No Hx Internal Defibrillator: No Hx Cholecystectomy: Yes Additional Surgical History: - Social History Smoking Status: Never Smoker Substance Use Type: None - Medications Home Medications: Home Medications Medication Instructions Recorded Confirmed Last Taken Type amLODIPine 5 mg PO QDAY #30 tablet 04/26/19 05/17/19 05/16/19 Rx carvediloL [Coreg] 25 mg PO Q12HR #60 tablet 04/26/19 05/17/19 05/16/19 Rx Pantoprazole [Protonix TAB] 40 mg PO QDAY #30 tablet 05/19/19 Unknown Rx Insulin Glargine [Lantus VIAL] 15 units SUB-Q QHS #1 vial 06/24/19 Unknown Rx Insulin Regular, Human [HumuLIN R] 5 units SUB-Q ACHS #2 vial 06/24/19 Unknown Rx Ondansetron (Nf) [Zofran TAB] 8 mg PO Q8HR PRN #10 tablet 06/24/19 Unknown Rx cloNIDine [Catapres] 0.2 mg PO Q12HR #60 tablet 06/24/19 Unknown Rx traMADoL [Ultram 50 MG tab] 50 mg PO Q6HR PRN #20 tablet 06/24/19 Unknown Rx ED Physical Exam - General Limitations: No Limitations General appearance: alert, in no apparent distress, other (Actively vomiting appears uncomfortable) - Head Head exam: Present: atraumatic, normocephalic - Eye Eye exam: Present: normal appearance - ENT ENT exam: Present: mucous membranes moist - Neck Neck exam: Present: normal inspection, full ROM - Respiratory Respiratory exam: Present: normal lung sounds bilaterally. Absent: respiratory distress, wheezes, rales, rhonchi - Cardiovascular Cardiovascular Exam: Present: normal rhythm, tachycardia, normal heart sounds. Absent: systolic murmur, diastolic murmur, rubs, gallop - GI/Abdominal GI/Abdominal exam: Present: soft, normal bowel sounds. Absent: distended, tenderness, guarding, rebound - Extremities Exam Extremities exam: Present: normal inspection - Neurological Exam Neurological exam: Present: alert, oriented X3 - Psychiatric Psychiatric exam: Present: normal affect, normal mood - Skin Skin exam: Present: warm, dry, intact, normal color. Absent: rash ED Course Vital Signs 07/25/19 07/25/19 07/25/19 22:32 22:41 22:46 Temperature 98.6 F Pulse Rate 117 H 117 H Respiratory 15 12 Rate Blood Pressure 214/146 214/146 Blood Pressure 214/146 [left arm] O2 Sat by Pulse 100 100 Oximetry 07/25/19 07/25/19 07/25/19 23:00 23:15 23:31 Temperature Pulse Rate 110 H 113 H 109 H Respiratory 14 12 13 Rate Blood Pressure 214/146 203/125 Blood Pressure [left arm] O2 Sat by Pulse 100 100 100 Oximetry 07/25/19 07/25/19 07/25/19 23:43 23:45 23:49 Temperature Pulse Rate 111 H Respiratory 10 L 11 L Rate Blood Pressure 203/125 203/125 203/125 Blood Pressure [left arm] O2 Sat by Pulse 99 100 Oximetry 07/26/19 07/26/19 07/26/19 00:01 00:15 00:31 Temperature Pulse Rate 105 H 104 H Respiratory 12 10 L 21 Rate Blood Pressure 203/125 203/125 203/125 Blood Pressure [left arm] O2 Sat by Pulse 93 100 100 Oximetry 07/26/19 00:45 Temperature Pulse Rate 105 H Respiratory 21 Rate Blood Pressure 203/125 Blood Pressure [left arm] O2 Sat by Pulse 100 Oximetry ED Medical Decision Making - Lab Data Result diagrams: 07/25/19 23:06 07/25/19 23:06 Laboratory Results - last 24 hr 07/25/19 07/25/19 07/25/19 00:20 23:06 23:06 WBC 9.1 RBC 4.62 Hgb 10.0 L Hct 32.6 MCV 71 L MCH 22 L MCHC 31 RDW 19.7 H Plt Count 350 Lymph % (Auto) 13.5 [place] % (Auto) 3.4 Eos % (Auto) 0.1 Baso % (Auto) 0.4 Lymph # 1.2 [place] # 0.3 Eos # 0.0 Baso # 0.0 Seg Neutrophils % 82.6 H Seg Neutrophils # 7.5 VBG pH Sodium 135 L Potassium 5.0 Chloride 97.0 L Carbon Dioxide 22 Anion Gap 21 BUN 20 H Creatinine 1.3 H Estimated GFR 56 BUN/Creatinine Ratio 15 Glucose 343 H Calcium 9.7 Total Bilirubin 0.30 AST 23 ALT 16 Alkaline Phosphatase 94 Total Protein 8.8 H Albumin 4.8 Albumin/Globulin Ratio 1.2 Lipase HCG, Qual Urine Color Yellow Urine Turbidity Slightly-cloudy Urine pH 6.0 Ur Specific [place] 1.016 Urine Protein 100 mg/dl Urine Glucose (UA) >=500 Urine Ketones Neg Urine Blood Neg Urine Nitrite Neg Urine Bilirubin Neg Urine Urobilinogen < 2.0 Ur Leukocyte Esterase Neg Urine WBC (Auto) 1.0 Urine RBC (Auto) 2.0 U Epithel Cells (Auto) 2.0 Urine Bacteria (Auto) 2+ Urine Mucus Few 07/25/19 07/25/19 07/25/19 23:16 23:16 23:16 WBC RBC Hgb Hct MCV MCH MCHC RDW Plt Count Lymph % (Auto) [place] % (Auto) Eos % (Auto) Baso % (Auto) Lymph # [place] # Eos # Baso # Seg Neutrophils % Seg Neutrophils # VBG pH 7.278 L Sodium Potassium Chloride Carbon Dioxide Anion Gap BUN Creatinine Estimated GFR BUN/Creatinine Ratio Glucose Calcium Total Bilirubin AST ALT Alkaline Phosphatase Total Protein Albumin Albumin/Globulin Ratio Lipase 55 HCG, Qual Negative Urine Color Urine Turbidity Urine pH Ur Specific [place] Urine Protein Urine Glucose (UA) Urine Ketones Urine Blood Urine Nitrite Urine Bilirubin Urine Urobilinogen Ur Leukocyte Esterase Urine WBC (Auto) Urine RBC (Auto) U Epithel Cells (Auto) Urine Bacteria (Auto) Urine Mucus - Medical Decision Making Ms. Ryan is a 38-year-old female who presents with recurrent nausea vomiting recurrent abdominal pain with history of extensive evaluation including PEG tube and J-tube. History ofdiabetic gastroparesis, gastritis. Anion gap slightly increased. Sodium bicarbonate is normal. I suspect venous pH is a spurious result. Hypertensive urgency addressed with IV labetalol Admitted to the hospital service for further treatment. Critical care attestation.: If time is entered above; I have spent that time in minutes in the direct care of this critically ill patient, excluding procedure time. ED Disposition Clinical Impression: Hypertensive urgency, Intractable nausea and vomiting, Abdominal pain, Gastroparesis, Diabetes Disposition: OP ADMIT IP TO THIS HOSP Is pt being admited?: Yes Does the pt Need Aspirin: No Condition: Stable Instructions: Abdominal Pain (ED)
[2019-07-26] MEDS ORDERED: diphenhydrAMINE 50 MG/ML VIAL IV ONE (00:01)
[2019-07-26 00:41] LABS: Bacteria,Urine 2+ /HPF (Negative); Bilirubin,Urine NEG (Negative); Blood,Urine NEG (Negative); Color,Urine Yellow (Yellow); Mucus,Urine FEW /HPF; Urobilinogen,Urine < 2.0 mg/dL (<2.0)
[2019-07-26 00:41] LABS: Basophils % (Auto) 0.4 % (0.0-1.8); Eosinophils % (Auto) 0.1 % (0.0-4.3); Hematocrit 32.6 % (30.3-42.9); Lymphocytes # (Auto) 1.2 K/mm3 (1.2-5.4); Lymphocytes % (Auto) 13.5 % (13.4-35.0); Mean Corpuscular HGB Conc 31 % (30-34); Mean Corpuscular Volume 71 fl (79-97); Monocytes # (Auto) 0.3 K/mm3 (0.0-0.8); Monocytes % (Auto) 3.4 % (0.0-7.3); Platelet Count 350 K/mm3 (140-440); Red Blood Count 4.62 M/mm3 (3.65-5.03); Red Cell Distribution Width 19.7 % (13.2-15.2)
[2019-07-26 00:47] LABS: Albumin 4.8 g/dL (3.9-5); Calcium 9.7 mg/dL (8.4-10.2)
[2019-07-26] MEDS ORDERED: SODIUM CHLORIDE 0.9% 1000 ML 1,000 ML IV ONE ×2 (01:04→05:53)
[2019-07-26] MEDS ORDERED: METOCLOPRAMIDE 10 MG/2 ML INJ IV PRN (01:28)
[2019-07-26] MEDS ORDERED: PROMETHAZINE 25 MG RECT SUPP PR PRN (01:28)
[2019-07-26] MEDS ORDERED: hydrALAZINE 20 MG/1 ML INJ IV PRN ×2 (01:31→01:33)
[2019-07-26] MEDS ORDERED: diphenhydrAMINE 50 MG/ML VIAL IV PRN (01:33)
--- NOTE | 2019-07-26 01:38 | History and Physical Report ---
History of Present Illness History of present illness: 40-year-old woman with a history of diabetes completed by gastroparesis, hypertension, cardiomyopathy comes to the ER with complaints of nausea vomiting started today, unable to tolerate oral intake. Patient stated her blood sugar has been running high at home, in [id number]. Also complaining of abdominal pain and mid abdomen which she describes as sharp pain, constant, intensity 5/10, no radiation, cannot identify exacerbating factors. Patient will be admitted for management of gastroparesis Review of systems Constitutional: no weight loss, chills, fever Ears, eyes, nose, mouth and throat: no nasal congestion, no nasal discharge, no sinus pressure, no vision change, no red eye. Neck: No neck pain or rigidity. Cardiovascular: no palpitations, chest pain Respiratory: no cough, shortness of breath Gastrointestinal: no hematochezia Genitourinary : no frequency , no hematuria Musculoskeletal: no joint swelling or muscle ache Integumentary: no rash, no pruritis Neurological: no parathesias, no focal weakness Endocrine: no cold or heat intolerance, no polyuria or polydipsia Hematologic/Lymphatic: no easy bruising, no easy bleeding, no gland swelling Allergic/Immunologic: no urticaria, no angioedema. PAST MEDICAL HISTORY: diabetes, hypertension, cardiomyopathy PAST SURGICAL HISTORY: 3, cholecystectomy SOCIAL HISTORY: Denies alcohol, drugs, tobacco FAMILY HISTORY: Hypertension, diabetes PUI?: No Medications and Allergies Allergies Allergy/AdvReac Type Severity Reaction Status Date / Time acetaminophen [From Percocet] Allergy Vomiting Verified 01/15/19 17:09 haloperidol [From Haldol] Allergy Nausea Verified 01/15/19 17:09 oxycodone HCl [From Percocet] Allergy Vomiting Verified 01/15/19 17:09 metoclopramide [From Reglan] AdvReac Shortness Verified 04/25/19 18:51 of Breath Home Medications Medication Instructions Recorded Confirmed Last Taken Type amLODIPine 5 mg PO QDAY #30 tablet 04/26/19 05/17/19 05/16/19 Rx carvediloL [Coreg] 25 mg PO Q12HR #60 tablet 04/26/19 05/17/19 05/16/19 Rx Pantoprazole [Protonix TAB] 40 mg PO QDAY #30 tablet 05/19/19 Unknown Rx Insulin Glargine [Lantus VIAL] 15 units SUB-Q QHS #1 vial 06/24/19 Unknown Rx Insulin Regular, Human [HumuLIN R] 5 units SUB-Q ACHS #2 vial 06/24/19 Unknown Rx Ondansetron (Nf) [Zofran TAB] 8 mg PO Q8HR PRN #10 tablet 06/24/19 Unknown Rx cloNIDine [Catapres] 0.2 mg PO Q12HR #60 tablet 06/24/19 Unknown Rx traMADoL [Ultram 50 MG tab] 50 mg PO Q6HR PRN #20 tablet 06/24/19 Unknown Rx Active Meds: Active Medications Diphenhydramine HCl (Benadryl) 25 mg IV Q6H PRN PRN Reason: Itching Enoxaparin Sodium (Enoxaparin) 30 mg SUB-Q QDAY ARTHUR Hydralazine HCl (Apresoline) 10 mg IV Q6H PRN PRN Reason: Hypertension Sodium Chloride (Nacl 0.9% 1000 Ml) 1,000 mls @ 999 mls/hr IV BOLUS ONE Stop: 07/26/19 02:04 Metoclopramide HCl (Reglan) 10 mg IV Q6H PRN PRN Reason: Nausea And Vomiting Morphine Sulfate (Morphine) 2 mg IV Q4H PRN PRN Reason: Pain, Moderate (4-6) Ondansetron HCl (Zofran) 4 mg IV Q4H PRN PRN Reason: Nausea And Vomiting Promethazine HCl (Phenergan) 25 mg OK Q6H PRN PRN Reason: N/V IF NPO AND NO IV ACCESS Sodium Chloride (Sodium Chloride Flush Syringe 10 Ml) 10 ml IV BID ARTHUR Sodium Chloride (Sodium Chloride Flush Syringe 10 Ml) 10 ml IV PRN PRN PRN Reason: LINE FLUSH Exam - Physical Exam Narrative exam: Gen. appearance: Patient lying in bed, no apparent distress HEENT: Normocephalic, atraumatic, pupils equally round and reactive to light, extraocular movement intact, and no sclericterus,. No JVD or thyromegaly or nodule,neck supple, no carotid bruit ,mucous membranes dry, no exudate or erythema Heart: S1, S2, regular rate and rhythm Lungs: Clear bilaterally, breathing comfortable Abdomen: Positive bowel sounds, tender in the mid abdomen, nondistended, no organomegaly Extremity:no edema cyanosis, clubbing Skin: no rash, dry, warm Neuro: Oriented 3, cranial nerves II-12 intact, speech is fluent, motor and sensory intact - Constitutional Vitals: Temp Pulse Resp BP Pulse Ox 98.6 F 105 H 21 203/125 100 07/25/19 22:41 07/26/19 00:45 07/26/19 00:45 07/26/19 00:45 07/26/19 00:45 Results - Labs CBC & Chem 7: 07/25/19 23:06 07/25/19 23:06 Labs: Abnormal lab results 07/25/19 07/25/19 07/25/19 Range/Units 23:06 23:06 23:16 Hgb 10.0 L (10.1-14.3) gm/dl MCV 71 L (79-97) fl MCH 22 L (28-32) pg RDW 19.7 H (13.2-15.2) % Seg Neutrophils % 82.6 H (40.0-70.0) % VBG pH 7.278 L (7.320-7.420) Sodium 135 L (137-145) mmol/L Chloride 97.0 L (98-107) mmol/L BUN 20 H (7-17) mg/dL Creatinine 1.3 H (0.7-1.2) mg/dL Glucose 343 H (65-100) mg/dL Total Protein 8.8 H (6.3-8.2) g/dL Assessment and Plan assessment Gastroparesis, acute on chronic Start IV fluids, antiemetics Abdominal pain also secondary to gastroparesis IV morphine, monitor Diabetes Check fingersticks, start sliding scale Hypertension start IV hydralazine DVT prophylaxis
[2019-07-26] MEDS ORDERED: SODIUM CHLORIDE 0.45% 1000 ML 1,000 ML IV SCH (02:00)
[2019-07-26] MEDS: ONDANSETRON 4 MG/2 ML INJ IV PRN ×2 (03:13→15:45)
[2019-07-26] MEDS: MORPHINE 2 MG/1 ML INJ IV PRN ×4 (03:13→21:48)
[2019-07-26 04:35] LABS: Basophils % (Auto) 0.2 % (0.0-1.8); Hematocrit 30.8 % (30.3-42.9); Hemoglobin 9.7 gm/dl (10.1-14.3); Lymphocytes # (Auto) 0.7 K/mm3 (1.2-5.4); Lymphocytes % (Auto) 7.1 % (13.4-35.0); Mean Corpuscular HGB Conc 31 % (30-34); Monocytes # (Auto) 0.3 K/mm3 (0.0-0.8); Platelet Count 305 K/mm3 (140-440); Red Blood Count 4.44 M/mm3 (3.65-5.03)
[2019-07-26 04:36] LABS: Mean Corpuscular Volume 70 fl (79-97)
[2019-07-26 04:55] LABS: Calcium 8.8 mg/dL (8.4-10.2)
[2019-07-26] MEDS ORDERED: DEXTROSE 50% IN WATER (25GM) 50 ML SYRINGE IV PRN (05:52)
[2019-07-26] MEDS ORDERED: INSULIN LISPRO 100 UNIT/ML SUB-Q SCH (06:00)
[2019-07-26] MEDS: SODIUM CHLORIDE 0.9% 1000 ML 1,000 ML IV SCH ×2 (06:16→10:05)
[2019-07-26 08:38] LABS: Calcium 8.6 mg/dL (8.4-10.2)
[2019-07-26] MEDS: ENOXAPARIN 30 MG/0.3 ML INJ SUB-Q SCH (10:04)
--- NOTE | 2019-07-26 10:44 | Progress Note ---
Assessment and Plan Assessment and plan: --Gastroparesis, acute on chronic Start IV fluids, antiemetics --Abdominal pain also secondary to gastroparesis IV morphine, monitor --Acute kidney injury; vasomotor nephropathy IV hydration closely monitor renal function avoid nephrotoxins --Type 2 diabetes mellitus; uncontrolled Accu-Cheks sliding scale coverage Resume patient's long-acting insulin HbA1c 10.7 --Hypertension urgency Resume home antihypertensives IV hydralazine as needed --DVT prophylaxis; Lovenox Monitor closely and adjust management as needed Advance care 32 minutes History Interval history: Patient seen and examined at bedside this morning Patient's records, tests, medications reviewed Patient continues to have nausea vomiting Slightly improved since yesterday Tolerating clear liquids Vital signs reviewed PUI?: No Hospitalist Physical - Constitutional Vitals: Temp Pulse Resp BP Pulse Ox 99.0 F 86 20 162/102 99 07/26/19 08:42 07/26/19 08:42 07/26/19 08:42 07/26/19 08:42 07/26/19 08:51 General appearance: Present: no acute distress, well-nourished - EENT Eyes: Present: PERRL, EOM intact - Neck Neck: Present: supple, normal ROM - Respiratory Respiratory effort: normal Respiratory: bilateral: diminished, negative: rales, rhonchi, wheezing - Cardiovascular Rhythm: regular Heart Sounds: Present: S1 & S2 - Extremities Extremities: no ischemia, No edema - Abdominal General gastrointestinal: soft, non-tender, non-distended, normal bowel sounds - Integumentary Integumentary: Present: clear, warm - Psychiatric Psychiatric: appropriate mood/affect, cooperative - Neurologic Neurologic: moves all extremities Results - Labs CBC & Chem 7: 07/26/19 03:59 07/26/19 08:01 Labs: Laboratory Last Values WBC 9.7 K/mm3 (4.5-11.0) 07/26/19 03:59 RBC 4.44 M/mm3 (3.65-5.03) 07/26/19 03:59 Hgb 9.7 gm/dl (10.1-14.3) L 07/26/19 03:59 Hct 30.8 % (30.3-42.9) 07/26/19 03:59 MCV 70 fl (79-97) L 07/26/19 03:59 MCH 22 pg (28-32) L 07/26/19 03:59 MCHC 31 % (30-34) 07/26/19 03:59 RDW 20.0 % (13.2-15.2) H 07/26/19 03:59 Plt Count 305 K/mm3 (140-440) 07/26/19 03:59 Lymph % (Auto) 7.1 % (13.4-35.0) L 07/26/19 03:59 [place] % (Auto) 3.0 % (0.0-7.3) 07/26/19 03:59 Eos % (Auto) 0.0 % (0.0-4.3) 07/26/19 03:59 Baso % (Auto) 0.2 % (0.0-1.8) 07/26/19 03:59 Lymph # 0.7 K/mm3 (1.2-5.4) L 07/26/19 03:59 [place] # 0.3 K/mm3 (0.0-0.8) 07/26/19 03:59 Eos # 0.0 K/mm3 (0.0-0.4) 07/26/19 03:59 Baso # 0.0 K/mm3 (0.0-0.1) 07/26/19 03:59 Seg Neutrophils % 89.7 % (40.0-70.0) H 07/26/19 03:59 Seg Neutrophils # 8.7 K/mm3 (1.8-7.7) H 07/26/19 03:59 VBG pH 7.278 (7.320-7.420) L 07/25/19 23:16 Sodium 139 mmol/L (137-145) 07/26/19 08:01 Potassium 4.3 mmol/L (3.6-5.0) 07/26/19 08:01 Chloride 103.5 mmol/L (98-107) 07/26/19 08:01 Carbon Dioxide 16 mmol/L (22-30) L 07/26/19 08:01 Anion Gap 24 mmol/L 07/26/19 08:01 BUN 21 mg/dL (7-17) H 07/26/19 08:01 Creatinine 1.3 mg/dL (0.7-1.2) H 07/26/19 08:01 Estimated GFR 56 ml/min 07/26/19 08:01 BUN/Creatinine Ratio 16 % 07/26/19 08:01 Glucose 307 mg/dL (65-100) H 07/26/19 08:01 POC Glucose 352 (70-105) H 07/26/19 06:12 Calcium 8.6 mg/dL (8.4-10.2) 07/26/19 08:01 Total Bilirubin 0.30 mg/dL (0.1-1.2) 07/25/19 23:06 AST 23 units/L (5-40) 07/25/19 23:06 ALT 16 units/L (7-56) 07/25/19 23:06 Alkaline Phosphatase 94 units/L (35-129) 07/25/19 23:06 Total Protein 8.8 g/dL (6.3-8.2) H 07/25/19 23:06 Albumin 4.8 g/dL (3.9-5) 07/25/19 23:06 Albumin/Globulin Ratio 1.2 % 07/25/19 23:06 Lipase 55 units/L (13-60) 07/25/19 23:16 HCG, Qual Negative (Negative) 07/25/19 23:16 Urine Color Yellow (Yellow) 07/25/19 00:20 Urine Turbidity Slightly-cloudy (Clear) 07/25/19 00:20 Urine pH 6.0 (5.0-7.0) 07/25/19 00:20 Ur Specific [place] 1.016 (1.003-1.030) 07/25/19 00:20 Urine Protein 100 mg/dl mg/dL (Negative) 07/25/19 00:20 Urine Glucose (UA) >=500 mg/dL (Negative) 07/25/19 00:20 Urine Ketones Neg mg/dL (Negative) 07/25/19 00:20 Urine Blood Neg (Negative) 07/25/19 00:20 Urine Nitrite Neg (Negative) 07/25/19 00:20 Urine Bilirubin Neg (Negative) 07/25/19 00:20 Urine Urobilinogen < 2.0 mg/dL (<2.0) 07/25/19 00:20 Ur Leukocyte Esterase Neg (Negative) 07/25/19 00:20 Urine WBC (Auto) 1.0 /HPF (0.0-6.0) 07/25/19 00:20 Urine RBC (Auto) 2.0 /HPF (0.0-6.0) 07/25/19 00:20 U Epithel Cells (Auto) 2.0 /HPF (0-13.0) 07/25/19 00:20 Urine Bacteria (Auto) 2+ /HPF (Negative) 07/25/19 00:20 Urine Mucus Few /HPF 07/25/19 00:20 Yates/IV: Voiding Method Toilet IV Catheter Type [right] INT / Saline Lock Active Medications - Current Medications Current Medications: Generic Name Dose Route Start Last Admin Trade Name Freq PRN Reason Stop Dose Admin Dextrose 50 ml 07/26/19 05:52 D50w (25gm) Syringe IV Q30MIN PRN Hypoglycemia Protocol Diphenhydramine HCl 25 mg 07/26/19 01:33 Benadryl IV Q6H PRN Itching Enoxaparin Sodium 30 mg 07/26/19 10:00 07/26/19 10:04 Enoxaparin SUB-Q 30 mg QDAY ARTHUR Administration Hydralazine HCl 10 mg 07/26/19 01:33 Apresoline IV Q6H PRN Hypertension Sodium Chloride 1,000 mls @ 125 mls/hr 07/26/19 06:00 07/26/19 10:05 Nacl 0.9% 1000 Ml IV 125 mls/hr DIRECT ARTHUR Administration Insulin Human Lispro 0 unit 07/26/19 06:00 07/26/19 06:17 Humalog SUB-Q 10 unit Q6HR ARTHUR Administration Protocol Morphine Sulfate 2 mg 07/26/19 01:28 07/26/19 06:18 Morphine IV 2 mg Q4H PRN Administration Pain, Moderate (4-6) Ondansetron HCl 4 mg 07/26/19 01:28 07/26/19 03:13 Zofran IV 4 mg Q4H PRN Administration Nausea And Vomiting Promethazine HCl 25 mg 07/26/19 01:28 Phenergan NM Q6H PRN N/V IF NPO AND NO IV ACCESS Sodium Chloride 10 ml 07/26/19 10:00 07/26/19 10:05 Sodium Chloride Flush Syringe 10 Ml IV 10 ml BID ARTHUR Administration Sodium Chloride 10 ml 07/26/19 01:28 Sodium Chloride Flush Syringe 10 Ml IV PRN PRN LINE FLUSH
[2019-07-26] MEDS: INSULIN LISPRO 100 UNIT/ML SUB-Q SCH ×3 (11:37→21:47)
[2019-07-26] MEDS: INSULIN REGULAR, HUMAN 100 UNITS/1 ML SUB-Q SCH ×3 (11:37→21:47)
[2019-07-26] MEDS: PANTOPRAZOLE 40 MG TAB PO SCH (15:44)
[2019-07-26] MEDS: cloNIDine 0.2 MG TAB PO SCH ×2 (15:52→21:46)
[2019-07-26] MEDS: carvediloL 25 MG TAB PO SCH ×2 (15:52→21:47)
[2019-07-26] MEDS: amLODIPine 5 MG TAB PO SCH (15:53)
[2019-07-26] MEDS ORDERED: INSULIN GLARGINE 100 UNITS/ML SUB-Q SCH (22:00)
[2019-07-27] MEDS: MORPHINE 2 MG/1 ML INJ IV PRN ×2 (03:33→08:20)
[2019-07-27] MEDS: INSULIN LISPRO 100 UNIT/ML SUB-Q SCH ×2 (08:20→12:24)
[2019-07-27] MEDS: INSULIN REGULAR, HUMAN 100 UNITS/1 ML SUB-Q SCH ×2 (08:21→12:25)
[2019-07-27] MEDS: ENOXAPARIN 30 MG/0.3 ML INJ SUB-Q SCH (09:28)
[2019-07-27] MEDS: ONDANSETRON 4 MG/2 ML INJ IV PRN (09:28)
[2019-07-27] MEDS: carvediloL 25 MG TAB PO SCH (09:28)
[2019-07-27] MEDS: PANTOPRAZOLE 40 MG TAB PO SCH (09:28)
[2019-07-27] MEDS: amLODIPine 5 MG TAB PO SCH (09:28)
[2019-07-27] MEDS: cloNIDine 0.2 MG TAB PO SCH (09:29)
--- NOTE | 2019-07-27 11:47 | Discharge Summary ---
Providers - Providers Date of Admission: 07/26/19 01:28 Date of discharge: 07/27/19 Attending physician: JET PAYAN 07/26/19 13:53 Midline [Consult to PICC Line RN] [CONS] Routine Reason For Exam: hard stick Type Line:: Midline Primary care physician: [employer] Hospitalization Reason for admission: Intractable nausea vomiting/gastroparesis Condition: Stable Hospital course: 40-year-old woman with a history of diabetes completed by gastroparesis, hypertension, cardiomyopathy comes to the ER with complaints of nausea vomiting started today, unable to tolerate oral intake. Patient stated her blood sugar has been running high at home, in [id number]. Also complaining of abdominal pain and mid abdomen which she describes as sharp pain, constant, intensity 5/10, no radiation, cannot identify exacerbating factors. Patient was admitted for management of gastroparesis. Patient received IV fluids, antiemetics, blood pressures blood sugars closely monitored, as patient symptoms improved, diet was advanced Patient had gastric emptying study done 6 months ago which was negative. Patient counseled importance of adhering to the treatment plan especially controlling the blood sugars and blood pressures. Today she is comfortable no new complaints vital signs stable physical examination is unremarkable Hemodynamically and clinically stable at discharge Advised 2 days work excuse on 07/28/2019 and 07/29/2019 Discharge diagnosis; --Gastroparesis, acute on chronic Start IV fluids, antiemetics, symptoms improved --Abdominal pain also secondary to gastroparesis IV morphine, monitor, improved --Acute kidney injury; vasomotor nephropathy, mild improvement IV hydration closely monitor renal function avoid nephrotoxins --Type 2 diabetes mellitus; moderate control Accu-Cheks sliding scale coverage Resume patient's long-acting insulin HbA1c 10.7 --Hypertension urgency; improved Continue current antihypertensives Stable at discharge Disposition: DC-01 TO HOME OR SELFCARE Time spent for discharge: 32 min Core Measure Documentation - Palliative Care Palliative Care/ Comfort Measures: Not Applicable - Core Measures Any of the following diagnoses?: none Exam - Constitutional Vitals: Temp Pulse Resp BP Pulse Ox 98.2 F 79 21 119/66 98 07/27/19 07:52 07/27/19 10:00 07/27/19 10:00 07/27/19 09:29 07/27/19 10:00 General appearance: Present: no acute distress, well-nourished - EENT Eyes: Present: PERRL, EOM intact - Neck Neck: Present: supple, normal ROM - Respiratory Respiratory effort: normal Respiratory: bilateral: diminished, negative: rales, rhonchi, wheezing - Cardiovascular Rhythm: regular Heart Sounds: Present: S1 & S2 - Extremities Extremities: no ischemia, No edema - Abdominal General gastrointestinal: Present: soft, non-tender, non-distended, normal bowel sounds - Integumentary Integumentary: Present: clear, warm - Musculoskeletal Musculoskeletal: strength equal bilaterally - Psychiatric Psychiatric: appropriate mood/affect, cooperative - Neurologic Neurologic: CNII-XII intact, moves all extremities Plan Activity: no restrictions Diet: diabetic, advance as tolerated Additional Instructions: 2 days work excuse 07/28/2019 and 07/29/2019, May return to work on 07/30/2019. If you have worsening symptoms contact MD or go to emergency room. Advised to see outpatient GI in 1 to 2 weeks as needed Follow up with: PRIMARY CARE,MD [Primary Care Provider] - 3-5 Days Forms: Work/School Release Form Prescriptions: Sucralfate [Carafate] 1 gm PO Q6HR #30 tablet Insulin Regular, Human [HumuLIN R] 5 units SUB-Q ACHS #2 vial Insulin Glargine [Lantus VIAL] 15 units SUB-Q QHS #1 vial Ondansetron [Zofran Odt] 4 mg PO Q8HR PRN #20 tab.rapdis PRN Reason: Nausea And Vomiting
[2019-07-27] MEDS ORDERED: SODIUM CHLORIDE 0.9% 500 ML 500 ML IV ONE (12:15)
[2019-07-27 13:52] VITALS: BP 132/80
[2019-07-28] MEDS ORDERED: ENOXAPARIN 40 MG/0.4 ML INJ SUB-Q SCH (10:00)
== END 2019-07-27 15:39 | disposition home or self-care (01) ==
LOC: ED 22:24 → 4A 07-26 01:28
PROVIDERS: ADMIT Internal Medicine; ATTEND Internal Medicine
DX: K31.84 Gastroparesis (principal); E11.43 Type 2 diabetes mellitus with diabetic autonomic (poly)neuropathy; I10 Essential (primary) hypertension; N17.9 Acute kidney failure, unspecified; I42.9 Cardiomyopathy, unspecified; J45.909 Unspecified asthma, uncomplicated; R11.2 Nausea with vomiting, unspecified; Z98.891 History of uterine scar from previous surgery; Z90.49 Acquired absence of other specified parts of digestive tract; Z79.4 Long term (current) use of insulin; Z87.442 Personal history of urinary calculi
CPT/HCPCS: 36415; 80048; 80053; 81001; 82805; 82962; 83690; 84703; 85025; 87116; 96361; 96372; 96374; 96375; 96376; 99284; G0378; J0360; J1200; J1650; J2270; J2405; J7030; J7040; J1815

== ENCOUNTER 2019-09-12 21:15 | Emergency (ER) | payer OTHER ==
[2019-09-12 22:07] LABS: Basophils % (Auto) 0.6 % (0.0-1.8); Eosinophils % (Auto) 0.4 % (0.0-4.3); Hematocrit 31.7 % (30.3-42.9); Lymphocytes # (Auto) 1.2 K/mm3 (1.2-5.4); Lymphocytes % (Auto) 17.3 % (13.4-35.0); Mean Corpuscular HGB Conc 32 % (30-34); Mean Corpuscular Volume 73 fl (79-97); Monocytes # (Auto) 0.5 K/mm3 (0.0-0.8); Monocytes % (Auto) 7.4 % (0.0-7.3); Platelet Count 388 K/mm3 (140-440); Red Blood Count 4.35 M/mm3 (3.65-5.03)
[2019-09-12 22:22] LABS: Red Cell Distribution Width 20.2 % (13.2-15.2)
[2019-09-12 22:30] LABS: Albumin 4.6 g/dL (3.9-5); Calcium 9.5 mg/dL (8.4-10.2)
[2019-09-12] MEDS ORDERED: ONDANSETRON 4 MG/2 ML INJ IV ONE (23:26)
[2019-09-12] MEDS ORDERED: diphenhydrAMINE 50 MG/ML VIAL IV STA (23:29)
[2019-09-12] MEDS ORDERED: SODIUM CHLORIDE 0.9% 1000 ML 1,000 ML IV ONE (23:29)
--- NOTE | 2019-09-12 23:51 | Emergency Department Report ---
ED Abdominal Pain HPI - General Chief Complaint: Abdominal Pain Stated Complaint: NAUSEA/VOMITING, ABDOMINAL PAIN Time Seen by Provider: 09/12/19 23:23 Source: patient, EMS Mode of arrival: Ambulatory Limitations: No Limitations - History of Present Illness Initial Comments: 39-year-old female with past medical history of diabetes presents emergency dep artment complaining of a 2-day history of diffuse abdominal pain associated with nausea and several episodes of vomiting. She is very worried she has gone into DKA from her diabetes as she does report having some degree of gastroparesis. Reports no fever, chills, sweats no chest pain or palpitations no hemoptysis no hematemesis no hematochezia she reports no dysuria no possibility for MD Complaint: abdominal pain Location: diffuse Radiation: none Migration to: no migration Severity: mild, moderate Quality: cramping, aching Consistency: constant Improves With: nothing Worsens With: nothing Associated Symptoms: nausea, vomiting. denies: diarrhea, constipation, dysuria, hematemesis, melena - Related Data Previous Rx's Medication Instructions Recorded Last Taken Type Insulin Glargine [Lantus VIAL] 15 units SUB-Q QHS #1 vial 07/27/19 08/17/19 12:00 Rx Insulin Regular, Human [HumuLIN R] 5 units SUB-Q ACHS #2 vial 07/27/19 08/17/19 12:00 Rx Ondansetron [Zofran ODT TAB] 4 mg PO Q8HR PRN #20 tab.rapdis 08/20/19 Unknown Rx Pantoprazole [Protonix TAB] 40 mg PO QDAY #30 tablet 08/20/19 Unknown Rx Sucralfate [Carafate] 1 gm PO Q6HR #30 tablet 08/20/19 Unknown Rx Ondansetron [Zofran ODT TAB] 8 mg PO Q8HR #20 tab.rapdis 09/13/19 Unknown Rx Allergies Allergy/AdvReac Type Severity Reaction Status Date / Time acetaminophen [From Percocet] Allergy Vomiting Verified 01/15/19 17:09 haloperidol [From Haldol] Allergy Nausea Verified 01/15/19 17:09 oxycodone HCl [From Percocet] Allergy Vomiting Verified 01/15/19 17:09 metoclopramide [From Reglan] AdvReac Shortness Verified 04/25/19 18:51 of Breath ED Review of Systems ROS: Stated complaint: NAUSEA/VOMITING, ABDOMINAL PAIN Other details as noted in HPI Comment: All other systems reviewed and negative ED Past Medical Hx - Past Medical History Previous Medical History?: Yes Hx Hypertension: Yes 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; cardiomyopathy and CHF) Hx Congestive Heart Failure: Yes Hx Diabetes: Yes Hx Deep Vein Thrombosis: Yes Hx Pulmonary Embolism: No Hx Liver Disease: No Hx Renal Disease: No Hx Sickle Cell Disease: No Hx Seizures: No Hx Kidney Stones: Yes Hx Asthma: Yes Hx COPD: No Hx Tuberculosis: No Hx HIV: No - Surgical History Past Surgical History?: Yes Hx Pacemaker: No Hx Internal Defibrillator: No Hx Cholecystectomy: Yes Additional Surgical History: - Social History Smoking Status: Never Smoker Substance Use Type: None - Medications Home Medications: Home Medications Medication Instructions Recorded Confirmed Last Taken Type Insulin Glargine [Lantus VIAL] 15 units SUB-Q QHS #1 vial 07/27/19 08/24/19 08/17/19 12:00 Rx Insulin Regular, Human [HumuLIN R] 5 units SUB-Q ACHS #2 vial 07/27/19 08/24/19 08/17/19 12:00 Rx Ondansetron [Zofran ODT TAB] 4 mg PO Q8HR PRN #20 tab.rapdis 08/20/19 08/24/19 Unknown Rx Pantoprazole [Protonix TAB] 40 mg PO QDAY #30 tablet 08/20/19 08/24/19 Unknown Rx Sucralfate [Carafate] 1 gm PO Q6HR #30 tablet 08/20/19 08/24/19 Unknown Rx Ondansetron [Zofran ODT TAB] 8 mg PO Q8HR #20 tab.rapdis 09/13/19 Unknown Rx ED Physical Exam - General Limitations: No Limitations General appearance: alert, in no apparent distress - Head Head exam: Present: atraumatic, normocephalic - Eye Eye exam: Present: normal appearance, PERRL, EOMI Pupils: Present: normal accommodation - ENT ENT exam: Present: normal exam, normal orophraynx, mucous membranes moist, TM's normal bilaterally - Neck Neck exam: Present: normal inspection, full ROM - Respiratory Respiratory exam: Present: normal lung sounds bilaterally. Absent: respiratory distress, wheezes, rales, chest wall tenderness, accessory muscle use - Cardiovascular Cardiovascular Exam: Present: regular rate, normal rhythm. Absent: systolic murmur, diastolic murmur, rubs, gallop - GI/Abdominal GI/Abdominal exam: Present: soft, tenderness, normal bowel sounds. Absent: guarding, rebound, hyperactive bowel sounds, hypoactive bowel sounds - Extremities Exam Extremities exam: Present: normal inspection - Back Exam Back exam: Present: normal inspection - Neurological Exam Neurological exam: Present: alert, oriented X3 - Psychiatric Psychiatric exam: Present: normal affect, normal mood - Skin Skin exam: Present: warm, dry, intact, normal color. Absent: rash ED Course Vital Signs 09/12/19 21:45 Temperature 98.7 F Pulse Rate 121 H Respiratory 20 Rate Blood Pressure 169/117 O2 Sat by Pulse 100 Oximetry ED Medical Decision Making - Lab Data Result diagrams: 09/12/19 21:53 09/12/19 21:53 Lab Results 09/12/19 09/12/19 09/12/19 Range/Units 21:53 21:53 21:53 WBC 7.0 (4.5-11.0) K/mm3 RBC 4.35 (3.65-5.03) M/mm3 Hgb 10.0 L (10.1-14.3) gm/dl Hct 31.7 (30.3-42.9) % MCV 73 L (79-97) fl MCH 23 L (28-32) pg MCHC 32 (30-34) % RDW 20.2 H (13.2-15.2) % Plt Count 388 (140-440) K/mm3 Lymph % (Auto) 17.3 (13.4-35.0) % [place] % (Auto) 7.4 H (0.0-7.3) % Eos % (Auto) 0.4 (0.0-4.3) % Baso % (Auto) 0.6 (0.0-1.8) % Lymph # 1.2 (1.2-5.4) K/mm3 Bradley # 0.5 (0.0-0.8) K/mm3 Eos # 0.0 (0.0-0.4) K/mm3 Baso # 0.0 (0.0-0.1) K/mm3 Seg Neutrophils % 74.3 H (40.0-70.0) % Seg Neutrophils # 5.2 (1.8-7.7) K/mm3 Sodium 135 L (137-145) mmol/L Potassium 4.0 (3.6-5.0) mmol/L Chloride 95.3 L (98-107) mmol/L Carbon Dioxide 22 (22-30) mmol/L Anion Gap 22 mmol/L BUN 12 (7-17) mg/dL Creatinine 1.4 H (0.7-1.2) mg/dL Estimated GFR 51 ml/min BUN/Creatinine Ratio 9 % Glucose 170 H (65-100) mg/dL Calcium 9.5 (8.4-10.2) mg/dL Total Bilirubin 0.60 (0.1-1.2) mg/dL AST 19 (5-40) units/L ALT 11 (7-56) units/L Alkaline Phosphatase 83 (35-129) units/L Total Protein 8.1 (6.3-8.2) g/dL Albumin 4.6 (3.9-5) g/dL Albumin/Globulin Ratio 1.3 % Lipase 70 H (13-60) units/L - Radiology Data Radiology results: report reviewed Print Report Referring Physician:RAHEEL THOMPSONPatient Name:LEE SANCHEZPatient ID:[id number] of :[id number]:FemaleAccession:[id number] Date:[id number] Status:[place] [address] Cat Scan Report Signed Patient: LEE SANCHEZ MR#: [id number] : 1980 Acct:[id number] Age/Sex: 39 / F ADM Date: 09/12/19 Loc: ED Attending Dr: Ordering Physician: EDOUARD PADRON Date of Service: 09/13/19 Procedure(s): CT abdomen pelvis wo con Accession Number(s): [id number] cc: EDOUARD PADRON CT ABDOMEN AND PELVIS WITHOUT CONTRAST INDICATION / CLINICAL INFORMATION: abd pain. Removed diffuse abdominal pain TECHNIQUE: Axial CT images were obtained through the abdomen and pelvis without IV contrast. All CT scans at this location are performed using CT dose reduction for ALARA by means of automated exposure control. COMPARISON: 08/25/2019 FINDINGS: LOWER CHEST: No significant abnormality. LIVER: No significant abnormality. GALLBLADDER: No significant abnormality. BILE DUCTS: No significant abnormality. PANCREAS: No significant abnormality. SPLEEN: No significant abnormality. ADRENALS: No significant abnormality. RIGHT KIDNEY and URETER: No significant abnormality. LEFT KIDNEY and URETER: No significant abnormality. STOMACH and SMALL BOWEL: No significant abnormality. COLON: No significant abnormality. APPENDIX: No significant abnormality. PERITONEUM: No free fluid. No free air. No fluid collection. LYMPH NODES: No significant adenopathy. AORTA and ARTERIES: No significant abnormality. IVC and VEINS: No significant abnormality. URINARY BLADDER: No significant abnormality. REPRODUCTIVE ORGANS: No significant abnormality. ADDITIONAL FINDINGS: None. SKELETAL SYSTEM: No significant abnormality. IMPRESSION: 1. No significant abnormality. Signer Name: Dakota Back MD Signed: 09/13/2019 12:48 AM Workstation Name: [id number] Transcribed By: BC Dictated By: Dakota Back MD Electronically Authenticated By: Dakota Back MD Signed Date/Time: 09/13/1947 DD/ TD/TT: - Medical Decision Making This patient presents with abdominal pain of unclear etiology. A CT scan was performed to evaluate for potential causes of the abdominal pain, however, neither the clinical exam nor the CT has identified an emergent etiology for the abdominal pain. Specifically, given the benign exam, the laboratory studies, and unremarkable CT, I have a very low suspicion for appendicitis, ischemic bowel, bowel perforation, or any other life threatening disease. I have discussed with the patient the level of uncertainty with undifferentiated abdominal pain and clearly explained the need to follow-up as noted on the discharge instructions, or return to the Emergency Department immediately if the pain worsens, develops fever, persistent and uncontrollable vomiting, or for any new symptoms or concerns. Critical care attestation.: If time is entered above; I have spent that time in minutes in the direct care of this critically ill patient, excluding procedure time. ED Disposition Clinical Impression: Nausea and vomiting, Acute abdominal pain Disposition: DC-01 TO HOME OR SELFCARE Is pt being admited?: No Does the pt Need Aspirin: No Condition: Stable Instructions: Abdominal Pain (ED), Acute Nausea and Vomiting (ED) Prescriptions: Ondansetron [Zofran ODT TAB] 8 mg PO Q8HR #20 tab.rapdis Referrals: PRIMARY CAREMD [Primary Care Provider] - 3-5 Days MAINE RODRÍGUEZ MD [Staff Physician] - 3-5 Days
--- NOTE | 2019-09-13 00:52 | Cat Scan Report ---
CT ABDOMEN AND PELVIS WITHOUT CONTRAST INDICATION / CLINICAL INFORMATION: abd pain. Removed diffuse abdominal pain TECHNIQUE: Axial CT images were obtained through the abdomen and pelvis without IV contrast. All CT scans at is location are performed using CT dose reduction for ALARA by means of automated exposure control. COMPARISON: 08/25/2019 FINDINGS: LOWER CHEST: No significant abnormality. LIVER: No significant abnormality. GALLBLADDER: No significant abnormality. BILE DUCTS: No significant abnormality. PANCREAS: No significant abnormality. SPLEEN: No significant abnormality. ADRENALS: No significant abnormality. RIGHT KIDNEY and URETER: No significant abnormality. LEFT KIDNEY and URETER: No significant abnormality. STOMACH and SMALL BOWEL: No significant abnormality. COLON: No significant abnormality. APPENDIX: No significant abnormality. PERITONEUM: No free fluid. No free air. No fluid collection. LYMPH NODES: No significant adenopathy. AORTA and ARTERIES: No significant abnormality. IVC and VEINS: No significant abnormality. URINARY BLADDER: No significant abnormality. REPRODUCTIVE ORGANS: No significant abnormality. ADDITIONAL FINDINGS: None. SKELETAL SYSTEM: No significant abnormality. IMPRESSION: 1. No significant abnormality. Signer Name: Dakota Back MD Signed: 09/13/2019 12:48 AM Workstation Name: [id number]
[2019-09-13] MEDS ORDERED: KETOROLAC 30 MG/1 ML INJ IM ONE (01:45)
[2019-09-13] MEDS ORDERED: ONDANSETRON 4 MG/2 ML INJ IM ONE (01:45)
[2019-09-13] MEDS ORDERED: diphenhydrAMINE 50 MG/ML VIAL IM ONE (01:45)
[2019-09-13] MEDS ORDERED: KETOROLAC 30 MG/1 ML INJ ONE (01:49)
[2019-09-13] MEDS ORDERED: diphenhydrAMINE 50 MG/ML VIAL ONE (01:49)
[2019-09-13] MEDS ORDERED: ONDANSETRON 4 MG/2 ML INJ ONE (01:49)
[2019-09-13 02:14] VITALS: BP 146/106
== END 2019-09-13 02:11 | disposition home or self-care (01) ==
LOC: ED 21:15
DX: R11.2 Nausea with vomiting, unspecified (principal); R10.9 Unspecified abdominal pain; I11.0 Hypertensive heart disease with heart failure; I50.9 Heart failure, unspecified; I25.2 Old myocardial infarction; E11.9 Type 2 diabetes mellitus without complications; J45.909 Unspecified asthma, uncomplicated; Z79.899 Other long term (current) drug therapy; Z88.8 Allergy status to other drugs, medicaments and biological substances; Z98.890 Other specified postprocedural states; Z90.49 Acquired absence of other specified parts of digestive tract; Z87.442 Personal history of urinary calculi
CPT/HCPCS: 36415; 74176; 80053; 83690; 85025; 96372; 99284; J1200; J1885; J2405

== ENCOUNTER 2019-09-14 17:09 | Emergency (ER) | payer OTHER ==
[2019-09-14] MEDS ORDERED: fentaNYL 100 MCG/2 ML INJ IV ONE (18:30)
[2019-09-14] MEDS ORDERED: ONDANSETRON 4 MG/2 ML INJ IV ONE ×2 (18:30→18:41)
[2019-09-14] MEDS ORDERED: diphenhydrAMINE 50 MG/ML VIAL IV ONE (18:31)
--- NOTE | 2019-09-14 18:39 | Emergency Department Report ---
HPI - General Chief Complaint: Nausea/Vomiting/Diarrhea PUI?: No Time Seen by Provider: 09/14/19 18:25 - HPI HPI: Room 6 The patient is a 39-year-old female present with a chief complaint of abdominal pain nausea vomiting. The patient was seen here yesterday for the same complaints underwent a CT scan of the abdomen pelvis which was negative. Patient was discharged home and states today she again developed epigastric abdominal pain nausea vomiting prompting her to come in. Patient requesting pain medication, antiemetic and Benadryl. 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; cardiomyopathy and CHF) Hx Congestive Heart Failure: Yes Hx Diabetes: Yes Hx Deep Vein Thrombosis: Yes Hx Kidney Stones: Yes Hx Asthma: Yes - Surgical History Hx Cholecystectomy: Yes Additional Surgical History: - Family History Family history: no significant - Social History Smoking Status: Never Smoker Substance Use Type: None - Medications Home Medications: Home Medications Medication Instructions Recorded Confirmed Last Taken Type Insulin Glargine [Lantus VIAL] 15 units SUB-Q QHS #1 vial 07/27/19 08/24/19 08/17/19 12:00 Rx Insulin Regular, Human [HumuLIN R] 5 units SUB-Q ACHS #2 vial 07/27/19 08/24/19 08/17/19 12:00 Rx Ondansetron [Zofran ODT TAB] 4 mg PO Q8HR PRN #20 tab.rapdis 08/20/19 08/24/19 Unknown Rx Pantoprazole [Protonix TAB] 40 mg PO QDAY #30 tablet 08/20/19 08/24/19 Unknown R x Sucralfate [Carafate] 1 gm PO Q6HR #30 tablet 08/20/19 08/24/19 Unknown Rx Ondansetron [Zofran ODT TAB] 8 mg PO Q8HR #20 tab.rapdis 09/13/19 Unknown Rx Ondansetron [Zofran ODT TAB] 8 mg PO Q8HR #20 tab.rapdis 09/14/19 Unknown Rx Promethazine [Phenergan] 25 mg PO Q6HR PRN #20 tab 09/14/19 Unknown Rx Promethazine [Phenergan] 25 mg MA Q6HR PRN #5 supp.rect 09/14/19 Unknown Rx traMADoL [Ultram] 50 mg PO Q6HR PRN #10 tablet 09/14/19 Unknown Rx ED Review of Systems ROS: Stated complaint: N/V Other details as noted in HPI Constitutional: no symptoms reported Respiratory: no symptoms reported Endocrine: no symptoms reported Gastrointestinal: abdominal pain, nausea, vomiting Physical Exam - Physical Exam Vital Signs: Vital Signs 09/14/19 18:21 Temperature 98.6 F Pulse Rate 112 H Respiratory 20 Rate Blood Pressure 202/123 [Left] O2 Sat by Pulse 100 Oximetry Physical Exam: GENERAL: The patient is well-developed well-nourished female lying on stretcher with a sheet over her head not appearing to be in acute distress. [] HEENT: Normocephalic. Atraumatic. Extraocular motions are intact. Patient has moist mucous membranes. NECK: Supple. Trachea midline CHEST/LUNGS: Clear to auscultation. There is no respiratory distress noted. HEART/CARDIOVASCULAR: Regular. There is no tachycardia. There is no gallop rub or murmur. ABDOMEN: Abdomen is soft, patient points to the midepigastric region as source of pain. Patient has normal bowel sounds. There is no abdominal distention. SKIN: There is no rash. There is no edema. There is no diaphoresis. NEURO: The patient is awake, alert, and oriented. The patient is cooperative. The patient has normal speech MUSCULOSKELETAL: There is no evidence of acute injury. ED Course Vital Signs 09/14/19 18:21 Temperature 98.6 F Pulse Rate 112 H Respiratory 20 Rate Blood Pressure 202/123 [Left] O2 Sat by Pulse 100 Oximetry - Reevaluation(s) Reevaluation #1: 09/14/19 22:28 Patient tolerating po ED Medical Decision Making - Lab Data Result diagrams: 09/14/19 18:35 09/14/19 18:35 Laboratory Tests 09/14/19 09/14/19 18:35 18:35 WBC 7.2 RBC 4.42 Hgb 10.2 Hct 32.8 MCV 74 L MCH 23 L MCHC 31 RDW 20.4 H Plt Count 374 Lymph % (Auto) 15.2 [place] % (Auto) 6.8 Eos % (Auto) 0.6 Baso % (Auto) 1.1 Lymph # 1.1 L [place] # 0.5 Eos # 0.0 Baso # 0.1 Seg Neutrophils % 76.3 H Seg Neutrophils # 5.5 Sodium 135 L Potassium 3.1 L D Chloride 98.2 Carbon Dioxide 19 L Anion Gap 21 BUN 22 H Creatinine 1.6 H Estimated GFR 44 BUN/Creatinine Ratio 14 Glucose 214 H Calcium 9.5 Total Bilirubin 0.50 AST 20 ALT 13 Alkaline Phosphatase 77 Total Protein 8.8 H Albumin 4.4 Albumin/Globulin Ratio 1.0 Lipase 87 H - Differential Diagnosis Gastroparesis, peptic ulcer disease, gastritis, malingering Critical care attestation.: If time is entered above; I have spent that time in minutes in the direct care of this critically ill patient, excluding procedure time. ED Disposition Clinical Impression: Gastroparesis, Abdominal pain, Hypokalemia, Chronic renal insufficiency Disposition: TO HOME OR SELFCARE Is pt being admited?: No Does the pt Need Aspirin: No Condition: Stable Instructions: Acute Nausea and Vomiting (ED) Additional Instructions: Return to the emergency department should you develop worsening symptoms, inability to tolerate food or liquids, high fever or any other concerns Prescriptions: Promethazine [Phenergan] 25 mg PO Q6HR PRN #20 tab PRN Reason: Nausea Promethazine [Phenergan] 25 mg MA Q6HR PRN #5 supp.rect PRN Reason: Vomiting traMADoL [Ultram] 50 mg PO Q6HR PRN #10 tablet PRN Reason: Pain Ondansetron [Zofran ODT TAB] 8 mg PO Q8HR #20 tab.rapdis Referrals: [facility] [Provider Group] - 3-5 Days BOLIVAR PETERSON MD [Staff Physician] - 3-5 Days (Dr. Peterson is a program management analyst. Please follow-up with him for further evaluation) Time of Disposition: 22:31
[2019-09-14 19:04] LABS: Basophils # (Auto) 0.1 K/mm3 (0.0-0.1); Basophils % (Auto) 1.1 % (0.0-1.8); Eosinophils % (Auto) 0.6 % (0.0-4.3); Hematocrit 32.8 % (30.3-42.9); Hemoglobin 10.2 gm/dl (10.1-14.3); Lymphocytes # (Auto) 1.1 K/mm3 (1.2-5.4); Lymphocytes % (Auto) 15.2 % (13.4-35.0); Mean Corpuscular HGB Conc 31 % (30-34); Mean Corpuscular Volume 74 fl (79-97); Monocytes # (Auto) 0.5 K/mm3 (0.0-0.8); Monocytes % (Auto) 6.8 % (0.0-7.3); Platelet Count 374 K/mm3 (140-440); Red Blood Count 4.42 M/mm3 (3.65-5.03)
[2019-09-14 19:07] LABS: Red Cell Distribution Width 20.4 % (13.2-15.2)
[2019-09-14 19:15] LABS: Albumin 4.4 g/dL (3.9-5); Calcium 9.5 mg/dL (8.4-10.2)
[2019-09-14] MEDS ORDERED: PROMETHAZINE 25 MG RECT SUPP PR ONE (19:59)
[2019-09-14] MEDS: POTASSIUM CHLORIDE ER 20 MEQ TAB PO ONE ×2 (20:16→22:23)
[2019-09-14] MEDS ORDERED: SODIUM CHLORIDE 0.9% 1000 ML 1,000 ML ONE (20:36)
[2019-09-14] MEDS ORDERED: SODIUM CHLORIDE 0.9% 1000 ML 1,000 ML IV ONE ×2 (20:45→22:57)
[2019-09-14] MEDS: POTASSIUM CHLORIDE 10 MEQ 10 MEQ/100 ML BAG IV SCH ×3 (20:45→22:36)
[2019-09-14] MEDS ORDERED: POTASSIUM CHLORIDE ER 20 MEQ TAB PO ONE (22:21)
[2019-09-14] MEDS ORDERED: MORPHINE 4 MG/1 ML INJ IV ONE (22:34)
[2019-09-14 23:46] VITALS: BP 139/93
== END 2019-09-15 00:53 | disposition home or self-care (01) ==
LOC: ED 17:09
DX: E11.43 Type 2 diabetes mellitus with diabetic autonomic (poly)neuropathy (principal); K31.84 Gastroparesis; E87.6 Hypokalemia; E11.22 Type 2 diabetes mellitus with diabetic chronic kidney disease; I13.0 Hypertensive heart and chronic kidney disease with heart failure and stage 1 through stage 4 chronic kidney disease, or unspecified chronic kidney disease; N18.9 Chronic kidney disease, unspecified; R11.2 Nausea with vomiting, unspecified; I25.2 Old myocardial infarction; J45.909 Unspecified asthma, uncomplicated; Z86.718 Personal history of other venous thrombosis and embolism; Z87.442 Personal history of urinary calculi; Z98.890 Other specified postprocedural states; Z79.4 Long term (current) use of insulin; Z79.899 Other long term (current) drug therapy; Z88.8 Allergy status to other drugs, medicaments and biological substances
CPT/HCPCS: 36415; 80053; 83690; 85025; 96361; 96374; 96375; 99284; J1200; J2270; J2405; J3010; J3480; J7030

== ENCOUNTER 2020-01-25 17:23 | Emergency (ER) | payer OTHER ==
[2020-01-25] MEDS ORDERED: MORPHINE 2 MG/1 ML INJ IV ONE ×2 (17:48→20:44)
[2020-01-25] MEDS ORDERED: ONDANSETRON 4 MG/2 ML INJ IV ONE ×2 (17:48→20:45)
--- NOTE | 2020-01-25 18:11 | Emergency Department Report ---
ED Abdominal Pain HPI - General Chief Complaint: Abdominal Pain Stated Complaint: NAUSEA/VOMIT Time Seen by Provider: 01/25/20 17:40 Source: patient, EMS Mode of arrival: Stretcher Limitations: No Limitations - History of Present Illness Initial Comments: 39-year-old female with history of insulin-dependent diabetes, CHF, gastroparesis, hypertension, presents to ED with complaint of diffuse abdominal pain and vomiting. Patient states symptoms began 2 to 3 days ago. She denies any fever, cough, chest pain, shortness of breath, diarrhea. Patient states she was seen at [facility] yesterday and told that she was in DKA, however, she was discharged from the ED without admission. Patient states she did not leave AMA. Patient reports continued abdominal pain and vomiting. Patient reports that she took labetalol and hydralazine earlier, however she vomited them up. Patient is currently hypertensive. MD Complaint: abdominal pain -: days(s) (3) Location: diffuse Radiation: none Migration to: no migration Severity: moderate Severity scale (0 -10): 10 Quality: cramping Consistency: constant Improves With: nothing Worsens With: nothing Associated Symptoms: nausea, vomiting. denies: diarrhea, fever - Related Data Previous Rx's Medication Instructions Recorded Last Taken Type Insulin Glargine [Lantus VIAL] 15 units SUB-Q QHS #1 vial 07/27/19 08/17/19 12:00 Rx Insulin Regular, Human [HumuLIN R] 5 units SUB-Q ACHS #2 vial 07/27/19 08/17/19 12:00 Rx Pantoprazole [Protonix TAB] 40 mg PO QDAY #30 tablet 08/20/19 Unknown Rx Sucralfate [Carafate] 1 gm PO Q6HR #30 tablet 08/20/19 Unknown Rx Promethazine [Phenergan SUPPOS] 25 mg AR Q6HR PRN #5 supp.rect 09/14/19 Unknown Rx Promethazine [Phenergan] 25 mg PO Q6HR PRN #20 tab 09/14/19 Unknown Rx Dicyclomine [Bentyl] 20 mg PO QID 10 Days #1 oral.liqd 01/04/20 Unknown Rx Insulin Detemir [Levemir VIAL] 15 unit SQ QHS #30 vial 01/04/20 Unknown Rx Ondansetron [Zofran ODT TAB] 4 mg PO Q8HR PRN #20 tab.rapdis 01/04/20 Unknown Rx hydrALAZINE [Apresoline TAB] 100 mg PO TID #90 tab 01/04/20 Unknown Rx labetaloL [Labetalol 100mg TAB] 100 mg PO BID #60 tablet 01/04/20 Unknown Rx Dicyclomine [Bentyl] 20 mg PO QID PRN #20 tablet 01/25/20 Unknown Rx Ondansetron [Zofran Odt] 4 mg PO Q8HR PRN #20 tab.rapdis 01/25/20 Unknown Rx Promethazine [Phenergan TAB] 25 mg PO Q6HR PRN #20 tab 01/25/20 Unknown Rx Allergies Allergy/AdvReac Type Severity Reaction Status Date / Time acetaminophen [From Percocet] Allergy Vomiting Verified 01/15/19 17:09 haloperidol [From Haldol] Allergy Nausea Verified 01/15/19 17:09 oxycodone HCl [From Percocet] Allergy Vomiting Verified 01/15/19 17:09 metoclopramide [From Reglan] AdvReac Shortness Verified 04/25/19 18:51 of Breath ED Review of Systems ROS: Stated complaint: NAUSEA/VOMIT Other details as noted in HPI Comment: All other systems reviewed and negative Constitutional: denies: chills, fever Respiratory: denies: cough, shortness of breath Cardiovascular: denies: chest pain Gastrointestinal: abdominal pain, nausea, vomiting. 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; cardiomyopathy and CHF) Hx Congestive Heart Failure: Yes Hx Diabetes: Yes Hx Deep Vein Thrombosis: Yes Hx Pulmonary Embolism: No Hx Liver Disease: No Hx Renal Disease: No Hx Sickle Cell Disease: No Hx Seizures: No Hx Kidney Stones: Yes Hx Asthma: Yes Hx COPD: No Hx Tuberculosis: No Hx HIV: No - Surgical History Past Surgical History?: Yes Hx Pacemaker: No Hx Internal Defibrillator: No Hx Cholecystectomy: Yes Additional Surgical History: - Social History Smoking Status: Current Every Day Smoker Substance Use Type: None - Medications Home Medications: Home Medications Medication Instructions Recorded Confirmed Last Taken Type Insulin Glargine [Lantus VIAL] 15 units SUB-Q QHS #1 vial 07/27/19 01/03/20 08/17/19 12:00 Rx Insulin Regular, Human [HumuLIN R] 5 units SUB-Q ACHS #2 vial 07/27/19 01/03/20 08/17/19 12:00 Rx Pantoprazole [Protonix TAB] 40 mg PO QDAY #30 tablet 08/20/19 01/03/20 Unknown Rx Sucralfate [Carafate] 1 gm PO Q6HR #30 tablet 08/20/19 01/03/20 Unknown Rx Promethazine [Phenergan SUPPOS] 25 mg AR Q6HR PRN #5 supp.rect 09/14/19 01/03/20 Unknown Rx Promethazine [Phenergan] 25 mg PO Q6HR PRN #20 tab 09/14/19 01/03/20 Unknown Rx Dicyclomine [Bentyl] 20 mg PO QID 10 Days #1 oral.liqd 01/04/20 Unknown Rx Insulin Detemir [Levemir VIAL] 15 unit SQ QHS #30 vial 01/04/20 Unknown Rx Ondansetron [Zofran ODT TAB] 4 mg PO Q8HR PRN #20 tab.rapdis 01/04/20 Unknown Rx hydrALAZINE [Apresoline TAB] 100 mg PO TID #90 tab 01/04/20 Unknown Rx labetaloL [Labetalol 100mg TAB] 100 mg PO BID #60 tablet 01/04/20 Unknown Rx Dicyclomine [Bentyl] 20 mg PO QID PRN #20 tablet 01/25/20 Unknown Rx Ondansetron [Zofran Odt] 4 mg PO Q8HR PRN #20 tab.rapdis 01/25/20 Unknown Rx Promethazine [Phenergan TAB] 25 mg PO Q6HR PRN #20 tab 01/25/20 Unknown Rx ED Physical Exam - General Limitations: No Limitations General appearance: alert, in no apparent distress - Head Head exam: Present: atraumatic, normocephalic - Eye Eye exam: Present: normal appearance, EOMI - ENT ENT exam: Present: mucous membranes moist - Neck Neck exam: Present: normal inspection - Respiratory Respiratory exam: Present: normal lung sounds bilaterally. Absent: respiratory distress - Cardiovascular Cardiovascular Exam: Present: tachycardia - GI/Abdominal GI/Abdominal exam: Present: soft, tenderness (diffuse). Absent: distended - Extremities Exam Extremities exam: Present: normal inspection - Neurological Exam Neurological exam: Present: alert, oriented X3 - Psychiatric Psychiatric exam: Present: normal affect, normal mood - Skin Skin exam: Present: warm, dry, intact, normal color ED Course Vital Signs 01/25/20 01/25/20 01/25/20 17:29 17:31 17:43 Temperature 99.5 F Pulse Rate 126 H 123 H Respiratory 17 17 17 Rate Blood Pressure 237/159 O2 Sat by Pulse 99 100 100 Oximetry 01/25/20 01/25/20 01/25/20 17:45 17:52 18:00 Temperature Pulse Rate 126 H 127 H 111 H Respiratory 13 12 Rate Blood Pressure 237/159 193/136 211/132 O2 Sat by Pulse 100 100 Oximetry 01/25/20 01/25/20 01/25/20 18:15 18:30 18:45 Temperature Pulse Rate 104 H 105 H 107 H Respiratory 12 24 18 Rate Blood Pressure 193/114 187/120 172/105 O2 Sat by Pulse 85 100 98 Oximetry 01/25/20 01/25/20 01/25/20 19:00 19:15 19:30 Temperature Pulse Rate 108 H 108 H 109 H Respiratory 13 18 11 L Rate Blood Pressure 181/105 175/114 174/116 O2 Sat by Pulse 96 99 97 Oximetry 01/25/20 01/25/20 01/25/20 19:45 20:00 20:15 Temperature Pulse Rate 109 H 110 H 108 H Respiratory 16 12 15 Rate Blood Pressure 179/115 192/123 184/114 O2 Sat by Pulse 99 99 97 Oximetry 01/25/20 01/25/20 01/25/20 20:30 20:45 20:52 Temperature Pulse Rate 108 H 109 H 114 H Respiratory 11 L 12 Rate Blood Pressure 209/130 212/122 212/122 O2 Sat by Pulse 99 99 Oximetry 01/25/20 01/25/20 01/25/20 21:00 21:15 21:30 Temperature Pulse Rate 113 H 112 H 115 H Respiratory 14 14 14 Rate Blood Pressure 173/110 127/87 120/67 O2 Sat by Pulse 100 100 100 Oximetry 01/25/20 01/25/20 01/25/20 21:45 22:00 22:15 Temperature Pulse Rate 113 H 114 H 114 H Respiratory 11 L 12 14 Rate Blood Pressure 125/85 125/83 138/90 O2 Sat by Pulse 95 97 98 Oximetry 01/25/20 01/25/20 01/25/20 22:30 22:45 23:00 Temperature Pulse Rate 115 H 120 H 121 H Respiratory 13 13 15 Rate Blood Pressure 138/92 135/88 135/88 O2 Sat by Pulse 98 99 99 Oximetry ED Medical Decision Making - Lab Data Result diagrams: 01/25/20 17:42 01/25/20 Unknown - Medical Decision Making 39-year-old female presents to ED with abdominal pain and vomiting, similar to previous bouts of gastroparesis. Patient does not appear to be in DKA at this time. Patient reported that she was unable to tolerate her BP meds by mouth therefore patient presented to ED in cardiac and hypertensive. Patient given IV labetalol and hydralazine, with improvement of vital signs. Patient feeling much better at this time following treatment. Will discharge home at this time. Outpatient follow-up advised, return precautions given. - Differential Diagnosis Gastroparesis, DKA, gastroenteritis Critical care attestation.: If time is entered above; I have spent that time in minutes in the direct care of this critically ill patient, excluding procedure time. ED Disposition Clinical Impression: Uncontrolled hypertension, Gastroparesis Disposition: - TO HOME OR SELFCARE Is pt being admited?: No Condition: Stable Instructions: Abdominal Pain (ED), Hypertension (ED) Prescriptions: Dicyclomine [Bentyl] 20 mg PO QID PRN #20 tablet PRN Reason: abdominal pain Promethazine [Phenergan TAB] 25 mg PO Q6HR PRN #20 tab PRN Reason: Nausea Ondansetron [Zofran Odt] 4 mg PO Q8HR PRN #20 tab.rapdis PRN Reason: Vomiting Referrals: ENA CABELLO MD [Primary Care Provider] - 3-5 Days [facility] [Provider Group] - 3-5 Days Time of Disposition: 22:36
[2020-01-25 18:14] LABS: Basophils # (Auto) 0.1 K/mm3 (0.0-0.1); Basophils % (Auto) 0.9 % (0.0-1.8); Eosinophils % (Auto) 0.1 % (0.0-4.3); Hematocrit 38.5 % (30.3-42.9); Hemoglobin 13.4 gm/dl (10.1-14.3); Lymphocytes # (Auto) 1.4 K/mm3 (1.2-5.4); Lymphocytes % (Auto) 12.5 % (13.4-35.0); Mean Corpuscular HGB Conc 35 % (30-34); Mean Corpuscular Volume 81 fl (79-97); Monocytes # (Auto) 0.4 K/mm3 (0.0-0.8); Platelet Count 362 K/mm3 (140-440); Red Blood Count 4.75 M/mm3 (3.65-5.03)
[2020-01-25 18:19] LABS: Albumin 4.7 g/dL (3.9-5)
[2020-01-25] MEDS ORDERED: hydrALAZINE 20 MG/1 ML INJ IV ONE (19:05)
[2020-01-25 22:50] VITALS: BP 135/88
== END 2020-01-25 23:34 | disposition home or self-care (01) ==
LOC: ED 17:23
DX: E11.43 Type 2 diabetes mellitus with diabetic autonomic (poly)neuropathy (principal); K31.84 Gastroparesis; I11.0 Hypertensive heart disease with heart failure; I50.9 Heart failure, unspecified; I25.2 Old myocardial infarction; J45.909 Unspecified asthma, uncomplicated; F17.200 Nicotine dependence, unspecified, uncomplicated; Z86.718 Personal history of other venous thrombosis and embolism; Z87.442 Personal history of urinary calculi; Z90.49 Acquired absence of other specified parts of digestive tract; Z98.890 Other specified postprocedural states; Z79.4 Long term (current) use of insulin; Z79.899 Other long term (current) drug therapy; Z88.8 Allergy status to other drugs, medicaments and biological substances
CPT/HCPCS: 36415; 80053; 82010; 82805; 82962; 83690; 84703; 85025; 96374; 96375; 96376; 99284; J0360; J2270; J2405

== ENCOUNTER 2020-11-11 06:40 | Emergency (ER) | payer OTHER ==
[2020-11-11] MEDS ORDERED: SODIUM CHLORIDE 0.9% 1000 ML 1,000 ML IV ONE (07:00)
[2020-11-11] MEDS ORDERED: fentaNYL 100 MCG/2 ML INJ IV ONE ×2 (07:00→09:50)
[2020-11-11] MEDS ORDERED: ONDANSETRON 4 MG/2 ML INJ IV ONE (07:00)
--- NOTE | 2020-11-11 07:05 | Emergency Department Report ---
HPI - General Time Seen by Provider: 11/11/20 06:54 - HPI HPI: Room 25 The patient is a 40-year-old female present with a chief complaint of abdominal pain. Patient states her symptoms began yesterday with nausea vomiting and periumbilical abdominal pain. Patient states her pain is been constant. The patient states "it feels like DKA." Patient states she has been compliant with her insulin. Patient denies diarrhea or fever. Patient gives her pain a score of 10/10 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; cardiomyopathy and CHF) Hx Congestive Heart Failure: Yes Hx Diabetes: Yes Hx Deep Vein Thrombosis: Yes Hx Kidney Stones: Yes Hx Asthma: Yes - Surgical History Hx Cholecystectomy: Yes Additional Surgical History: - Family History Family history: no significant - Social History Smoking Status: Never Smoker Substance Use Type: None (Denies illicit drug use) - Medications Home Medications: Home Medications Medication Instructions Recorded Confirmed Last Taken Type Insulin Glargine [Lantus VIAL] 15 units SUB-Q QHS #1 vial 07/27/19 01/03/20 08/17/19 12:00 Rx Insulin Regular, Human [HumuLIN R] 5 units SUB-Q ACHS #2 vial 07/27/19 01/03/20 08/17/19 12:00 Rx Pantoprazole [Protonix TAB] 40 mg PO QDAY #30 tablet 08/20/19 01/03/20 Unknown Rx Sucralfate [Carafate] 1 gm PO Q6HR #30 tablet 08/20/19 01/03/20 Unknown Rx Promethazine [Phenergan SUPPOS] 25 mg WA Q6HR PRN #5 supp.rect 09/14/19 01/03/20 Unknown Rx Promethazine [Phenergan] 25 mg PO Q6HR PRN #20 tab 09/14/19 01/03/20 Unknown Rx Dicyclomine [Bentyl] 20 mg PO QID 10 Days #1 oral.liqd 01/04/20 Unknown Rx Insulin Detemir [Levemir VIAL] 15 unit SQ QHS #30 vial 01/04/20 Unknown Rx Ondansetron [Zofran ODT TAB] 4 mg PO Q8HR PRN #20 tab.rapdis 01/04/20 Unknown Rx hydrALAZINE [Apresoline TAB] 100 mg PO TID #90 tab 01/04/20 Unknown Rx labetaloL [Labetalol 100mg TAB] 100 mg PO BID #60 tablet 01/04/20 Unknown Rx Dicyclomine [Bentyl] 20 mg PO QID PRN #20 tablet 01/25/20 Unknown Rx Ondansetron [Zofran Odt] 4 mg PO Q8HR PRN #20 tab.rapdis 01/25/20 Unknown Rx Promethazine [Phenergan TAB] 25 mg PO Q6HR PRN #20 tab 01/25/20 Unknown Rx Promethazine [Phenergan] 25 mg PO Q6HR PRN #20 tab 11/11/20 Unknown Rx Promethazine [Phenergan] 25 mg WA Q6HR PRN #5 supp.rect 11/11/20 Unknown Rx traMADoL [Ultram] 50 mg PO Q6HR PRN #14 tablet 11/11/20 Unknown Rx ED Review of Systems ROS: Stated complaint: NAUSEA, VOMITING, HYPERTENSION Other details as noted in HPI Constitutional: denies: fever Eyes: denies: eye pain ENT: denies: throat pain Respiratory: no symptoms reported Cardiovascular: denies: chest pain Endocrine: no symptoms reported Gastrointestinal: abdominal pain, nausea, vomiting. denies: diarrhea Genitourinary: denies: dysuria Musculoskeletal: denies: back pain Neurological: denies: headache Physical Exam - Physical Exam Physical Exam: GENERAL: The patient is well-developed well-nourished female lying on stretcher appearing to be in mild discomfort. Patient occasionally vomiting HEENT: Normocephalic. Atraumatic. Extraocular motions are intact. Patient has moist mucous membranes. NECK: Supple. Trachea midline CHEST/LUNGS: Clear to auscultation. There is no respiratory distress noted. HEART/CARDIOVASCULAR: Regular. There is tachycardia. There is no gallop rub or murmur. ABDOMEN: The patient complains of periumbilical pain however the abdomen is soft, she allows deep palpation without signs of tenderness and there is no rebound or guarding. Patient has normal bowel sounds. There is no abdominal distention. SKIN: There is no rash. There is no edema. There is no diaphoresis. NEURO: The patient is awake, alert, and oriented. The patient is cooperative. The patient has no focal neurologic deficits. The patient has normal speech MUSCULOSKELETAL: There is no evidence of acute injury. ED Course - Reevaluation(s) Reevaluation #1: 11/11/20 11:25 Patient tolerated p.o. ED Medical Decision Making - Lab Data Result diagrams: 11/11/20 07:38 11/11/20 07:38 Laboratory Tests 11/11/20 11/11/20 11/11/20 07:38 07:38 07:38 WBC 10.6 RBC 4.25 Hgb 11.2 Hct 34.1 MCV 80 MCH 26 L MCHC 33 RDW 18.4 H Plt Count 282 Seg Neutrophils % Residential Installer VBG pH Sodium 137 Potassium 3.3 L Chloride 97.3 L Carbon Dioxide 21 L Anion Gap 22 BUN 9 Creatinine 1.1 Estimated GFR > 60 BUN/Creatinine Ratio 8 Glucose 258 H Calcium 9.6 Total Bilirubin 0.30 AST 22 ALT 14 Alkaline Phosphatase 76 Total Protein 8.7 H Albumin 4.7 Albumin/Globulin Ratio 1.2 Lipase 47 HCG, Qual Negative Urine Color Urine Turbidity Urine pH Ur Specific [place] Urine Protein Urine Glucose (UA) Urine Ketones Urine Blood Urine Nitrite Urine Bilirubin Urine Urobilinogen Ur Leukocyte Esterase Urine WBC (Auto) Urine RBC (Auto) U Epithel Cells (Auto) 11/11/20 11/11/20 07:38 07:47 WBC RBC Hgb Hct MCV MCH MCHC RDW Plt Count Seg Neutrophils % VBG pH 7.412 Sodium Potassium Chloride Carbon Dioxide Anion Gap BUN Creatinine Estimated GFR BUN/Creatinine Ratio Glucose Calcium Total Bilirubin AST ALT Alkaline Phosphatase Total Protein Albumin Albumin/Globulin Ratio Lipase HCG, Qual Urine Color Straw Urine Turbidity Clear Urine pH 8.0 H Ur Specific [place] 1.011 Urine Protein 100 mg/dl Urine Glucose (UA) >=500 Urine Ketones Tr Urine Blood Sm Urine Nitrite Neg Urine Bilirubin Neg Urine Urobilinogen < 2.0 Ur Leukocyte Esterase Neg Urine WBC (Auto) 1.0 Urine RBC (Auto) < 1.0 U Epithel Cells (Auto) 2.0 - Radiology Data Radiology results: report reviewed (CT abdomen pelvis), image reviewed (CT abdomen pelvis) [facility] [address] [place] [address] Cat Scan Report Signed Patient: LEE SANCHEZ MR#: [id number] : 1980 Acct:[id number] Age/Sex: 40 / F ADM Date: 11/11/20 Loc: ED Attending Dr: Juan olivas Physician: SAMANTHA YATES MD Date of Service: 11/11/20 Procedure(s): CT abdomen pelvis w con Accession Number(s): [id number] cc: SAMANTHA YATES MD CT ABDOMEN AND PELVIS WITH CONTRAST HISTORY: Periumbilical abdominal pain, nausea vomiting Omni 300 100ml COMPARISON: 01/03/2020 TECHNIQUE: Axial CT images were obtained through the abdomen and pelvis after 100 cc of IV contrast. Sagittal and coronal reformatted images. All CT scans at this location are performed using CT dose reduction for ALARA by means of automated exposure control. FINDINGS: CT ABDOMEN: Lung Bases: Clear. Liver: No significant abnormality. Biliary: Cholecystectomy changes with mild prominence of the biliary tree is again noted and unchanged. Spleen: No significant abnormality. Unenlarged. Pancreas: No significant abnormality. Adrenals: No significant abnormality. Kidneys: No significant abnormality. Lymphatics: No lymphadenopathy. Vasculature: No significant abnormality. Bowel/Peritoneum: No significant abnormality. No free air. No free fluid. Normal appendix. CT PELVIS: : The uterus, ovaries and bladder are unremarkable. Osseous Structures: No significant abnormality. Additional Findings: Rectus muscle diastases with laxity of the anterior abdominal wall is noted and unchanged. IMPRESSION: No acute inflammatory process or significant change since 01/03/2020. No clear explanation for periumbilical pain. Rectus muscle diastases cysts at midline is noted and unchanged. Normal appendix. Signer Name: Adan Banks Jr, MD Signed: 11/11/2020 9:27 AM Workstation Name: [id number] Transcribed By: TTR Dictated By: ADAN BANKS JR, MD Electronically Authenticated By: ADAN BANKS JR, MD Signed Date/Time: 11/11/20926 DD/ 2 TD/TT: Print Cancel - Differential Diagnosis Gastritis, gastroparesis, DKA, UTI, Critical care attestation.: If time is entered above; I have spent that time in minutes in the direct care of this critically ill patient, excluding procedure time. ED Disposition Clinical Impression: Nausea & vomiting, Acute abdominal pain Disposition: DC-01 TO HOME OR SELFCARE Is pt being admited?: No Does the pt Need Aspirin: No Condition: Stable Instructions: Nausea and Vomiting, Adult Additional Instructions: Return to the emergency department should you develop worsening symptoms, inability to tolerate food or liquids, high fever or any other concerns Prescriptions: Promethazine [Phenergan] 25 mg PO Q6HR PRN #20 tab PRN Reason: Nausea Promethazine [Phenergan] 25 mg WA Q6HR PRN #5 supp.rect PRN Reason: Vomiting traMADoL [Ultram] 50 mg PO Q6HR PRN #14 tablet PRN Reason: Pain Referrals: PRIMARY CARE, [Primary Care Provider] - 3-5 Days BOLIVAR PETERSON MD [Staff Physician] - 3-5 Days (Dr. Peterson is a nursing associate. Please follow-up with him for further evaluation) Time of Disposition: 11:27
[2020-11-11 07:57] LABS: Hematocrit 34.1 % (30.3-42.9); Hemoglobin 11.2 gm/dl (10.1-14.3); Mean Corpuscular HGB Conc 33 % (30-34); Mean Corpuscular Volume 80 fl (79-97); Platelet Count 282 K/mm3 (140-440); Red Blood Count 4.25 M/mm3 (3.65-5.03); Red Cell Distribution Width 18.4 % (13.2-15.2)
[2020-11-11 08:03] LABS: Bilirubin,Urine NEG (Negative); Blood,Urine SM (Negative); Color,Urine Straw (Yellow); RBC,Urine < 1.0 /HPF (0.0-6.0); Urobilinogen,Urine < 2.0 mg/dL (<2.0)
[2020-11-11 08:17] LABS: Alanine Aminotransferase 14 units/L (7-56); Albumin 4.7 g/dL (3.9-5); BUN/Creatinine Ratio 8; Blood Urea Nitrogen 9 mg/dL (7-17); Calcium 9.6 mg/dL (8.4-10.2); Hemolysis Index 3
--- NOTE | 2020-11-11 09:31 | Cat Scan Report ---
CT ABDOMEN AND PELVIS WITH CONTRAST HISTORY: Periumbilical abdominal pain, nausea vomiting Omni 300 100ml COMPARISON: 01/03/2020 TECHNIQUE: Axial CT images were obtained through the abdomen and pelvis after 100 cc of IV contrast. Sagittal and coronal reformatted images. All CT scans at this location are performed using CT dose re duction for ALARA by means of automated exposure control. FINDINGS: CT ABDOMEN: Lung Bases: Clear. Liver: No significant abnormality. Biliary: Cholecystectomy changes with mild prominence of the biliary tree is again noted and unchange d. Spleen: No significant abnormality. Unenlarged. Pancreas: No significant abnormality. Adrenals: No significant abnormality. Kidneys: No significant abnormality. Lymphatics: No lymphadenopathy. Vasculature: No significant abnormality. Bowel/Peritoneum: No significant abnormality. No free air. No free fluid. Normal appendix. CT PELVIS: : The uterus, ovaries and bladder are unremarkable. Osseous Structures: No significant abnormality. Additional Findings: Rectus muscle diastases with laxity of the anterior abdominal wall is noted and unchanged. IMPRESSION: No acute inflammatory process or significant change since 01/03/2020. No clear explanation for periumb ilical pain. Rectus muscle diastases cysts at midline is noted and unchanged. Normal appendix. Signer Name: dAan Banks Jr, MD Signed: 11/11/2020 9:27 AM Workstation Name: [id number]
[2020-11-11] MEDS ORDERED: POTASSIUM CHLORIDE ER 20 MEQ TAB PO ONE (09:48)
[2020-11-11] MEDS ORDERED: PROMETHAZINE 25 MG TAB PO ONE (09:51)
[2020-11-11 11:07] LABS: Anisocytosis 1+; Platelet Estimate Consistent w Auto; Total Cells Counted 100
[2020-11-11 11:25] VITALS: BP 178/113
== END 2020-11-11 11:39 | disposition home or self-care (01) ==
LOC: ED 06:40
DX: R10.9 Unspecified abdominal pain (principal); R11.2 Nausea with vomiting, unspecified; I11.0 Hypertensive heart disease with heart failure; I50.9 Heart failure, unspecified; E11.9 Type 2 diabetes mellitus without complications; J45.909 Unspecified asthma, uncomplicated
CPT/HCPCS: 36415; 74177; 80053; 81001; 82805; 83690; 84703; 85007; 85025; 96361; 96374; 96375; 96376; 99284; J2405; J3010; J7030; Q0169; Q9967